=== PATIENT | male | born 1975 | race Caucasian/White ===

== ENCOUNTER 2016-02-27 12:10 | Outpatient (RCR) | payer OTHER ==
--- OUTSIDE RECORDS SUMMARY | 2016-02-05 12:56 | XMS REPORT | Continuity of Care Document ---
Author Author [facility] Organization [facility] Address Unknown Phone Unavailable Care Team Providers Care International Sales Manager Name Role Phone Chad Sparrow PCP [phone] Source Comments Some departments are not documenting in the electronic medical record. If you do not see the information that you expected, contact Release of Information in the Health Information Management department at [phone] for further assistance in locating additional records.[facility] Active Allergies and Adverse Reactions No [...] overall doing better but no recent HbA1c Social History Tobacco Use Types Packs/Day Years [...]
[2016-02-05 13:15] VITALS: BP 152/93
[2016-02-05] MEDS: LEVOFLOXACIN 750 MG/D5W 150 ML PRE-MIX IV SCH (15:05)
--- NOTE | 2016-02-05 15:16 | Diagnostic Imaging Report ---
Portable upright radiograph of the chest. INDICATION: PICC line placement. FINDINGS: Right PICC line is seen with the tip at the mid SVC level. The lungs are clear. The heart size is normal. No effusion or pneumothorax. The mediastinum and sarina appear unremarkable. IMPRESSION: Right PICC line is placed with the tip at the SVC level. Dictated by: Dictated on workstation # [id number]
[2016-02-05] MEDS: DAPTOmycin 500 MG/NS 50 ML IVPB IV SCH ×2 (16:30)
[2016-02-05 17:31] VITALS: BP 152/93
[2016-02-06] MEDS: LEVOFLOXACIN 750 MG/D5W 150 ML PRE-MIX IV SCH (09:55)
[2016-02-06] MEDS: DAPTOmycin 500 MG/NS 50 ML IVPB IV SCH ×2 (11:20)
[2016-02-06 12:45] VITALS: BP 142/84
[2016-02-07] MEDS: LEVOFLOXACIN 750 MG/D5W 150 ML PRE-MIX IV SCH (10:45)
[2016-02-07 11:06] VITALS: BP 138/90
[2016-02-07] MEDS: DAPTOmycin 500 MG/NS 50 ML IVPB IV SCH ×2 (12:10)
[2016-02-08] MEDS: LEVOFLOXACIN 750 MG/D5W 150 ML PRE-MIX IV SCH (09:25)
[2016-02-08] MEDS: DAPTOmycin 500 MG/NS 50 ML IVPB IV SCH ×2 (10:50)
[2016-02-08 11:07] VITALS: BP 128/84
[2016-02-09 11:10] VITALS: BP 123/79
[2016-02-09] MEDS: LEVOFLOXACIN 750 MG/D5W 150 ML PRE-MIX IV SCH (11:25)
[2016-02-09] MEDS: DAPTOmycin 500 MG/NS 50 ML IVPB IV SCH ×2 (12:55)
[2016-02-10] MEDS: LEVOFLOXACIN 750 MG/D5W 150 ML PRE-MIX IV SCH (10:57)
[2016-02-10] MEDS: DAPTOmycin 500 MG/NS 50 ML IVPB IV SCH ×2 (12:25)
[2016-02-10 12:58] VITALS: BP 133/86
[2016-02-11] MEDS: LEVOFLOXACIN 750 MG/D5W 150 ML PRE-MIX IV SCH (10:40)
[2016-02-11] MEDS: DAPTOmycin 500 MG/NS 50 ML IVPB IV SCH ×2 (12:05)
[2016-02-11 13:23] VITALS: BP 116/81
[2016-02-12 11:00] VITALS: BP 119/76
[2016-02-12] MEDS: LEVOFLOXACIN 750 MG/D5W 150 ML PRE-MIX IV SCH (11:10)
[2016-02-12 11:20] VITALS: BP 119/76
[2016-02-12] MEDS: DAPTOmycin 500 MG/NS 50 ML IVPB IV SCH ×2 (12:30)
[2016-02-12 13:11] VITALS: BP 119/76
[2016-02-13] MEDS: DAPTOmycin 500 MG/NS 50 ML IVPB IV SCH ×2 (09:45)
[2016-02-13] MEDS: LEVOFLOXACIN 750 MG/150 ML IV 150 ML IV SCH (10:15)
[2016-02-13 12:05] VITALS: BP 119/48
[2016-02-14] MEDS: LEVOFLOXACIN 750 MG/150 ML IV 150 ML IV SCH (09:27)
[2016-02-14] MEDS: DAPTOMYCIN IV SCH (11:10)
[2016-02-14] MEDS: NORMAL SALINE IV SCH (11:10)
[2016-02-14 12:00] VITALS: BP 108/73
[2016-02-15 10:57] VITALS: BP 107/84
[2016-02-15] MEDS: LEVOFLOXACIN 750 MG/D5W 150 ML PRE-MIX IV SCH (10:57)
[2016-02-15] MEDS: NORMAL SALINE IV SCH (12:27)
[2016-02-15] MEDS: DAPTOMYCIN IV SCH (12:27)
[2016-02-15 12:57] VITALS: BP 107/84
[2016-02-16] MEDS: LEVOFLOXACIN 750 MG/150 ML IV 150 ML IV SCH (08:55)
[2016-02-16] MEDS: DAPTOMYCIN IV SCH (10:30)
[2016-02-16] MEDS: NORMAL SALINE IV SCH (10:30)
[2016-02-16 11:18] VITALS: BP 106/77
[2016-02-18 08:20] VITALS: BP 119/81
[2016-02-18] MEDS: LEVOFLOXACIN 750 MG/150 ML IV 150 ML IV SCH (08:45)
[2016-02-18] MEDS: NORMAL SALINE IV SCH (10:04)
[2016-02-18] MEDS: DAPTOMYCIN IV SCH (10:04)
[2016-02-26 11:20] VITALS: BP 114/85
[~2016-02-27] VITALS: Ht 185.4 cm; Wt 108.9 kg
[~2016-02-27 12:10] MED LIST: ALPRAZolam 0.5 MG (XANAX) TAB PO NR; ATOR20TA66 PO; CEPH500C PO; DAKIN'S 1/4 STRENGTH (0.125%) 473 ML BTL TOP SCH; DAPT500V3 IV; DAPTOMYCIN IV SCH; GLIM4TAB PO; INSU100I10 SQ; LEVO750P7 IV; LEVOFLOXACIN 750 MG/150 ML IV 150 ML IV ONE; LISI-556 PO; LISI10TA2 PO; METF-380 PO; METR500T PO; NORMAL SALINE IV SCH; ORPH100T PO; POVI3780 TP; POVIDONE (BETADINE) 10% SOLN 240 ML BTL TOP SCH; SULF1TAB35 PO
[2016-02-27 12:27] VITALS: BP 130/85
== END 2016-05-05 | disposition home or self-care (01) ==
LOC: SDC 12:10
PROVIDERS: ATTEND Surgery
DX: E11.52 Type 2 diabetes mellitus with diabetic peripheral angiopathy with gangrene (principal); E11.621 Type 2 diabetes mellitus with foot ulcer; E11.42 Type 2 diabetes mellitus with diabetic polyneuropathy; L97.514 Non-pressure chronic ulcer of other part of right foot with necrosis of bone
CPT/HCPCS: 36569; 71010; 76937; 82962; 96365; 96367; 99211

== ENCOUNTER 2016-03-15 15:29 | Outpatient (RCR) | payer OTHER ==
--- OUTSIDE RECORDS SUMMARY | 2015-12-26 09:19 | XMS REPORT | Continuity of Care Document ---
Author Author [facility] Organization [facility] Address Unknown Phone Unavailable Care Team Providers Care Element Setter Name Role Phone Chad Sparrow PCP [phone] Source Comments Some departments are not documenting in the electronic medical record. If you do not see the information that you expected, contact Release of Information in the Health Information Management department at [phone] for further assistance in locating additional records.[facility] Active Allergies and Adverse Reactions No Known Allergies Current Medications Prescription Sig. Disp. Refills Start End Date Status Date metFORMIN (GLUCOPHAGE) Take 1,000 mg by mouth Active 1,000 mg tablet twice daily with meals. glimepiride (AMARYL) 4 mg Take 4 mg by mouth twice Active tablet daily. atorvastatin (LIPITOR) 20 Take 20 mg by mouth Active mg tablet daily. orphenadrine ER(+) Take 100 mg by mouth Active (NORFLEX) 100 mg tablet twice daily. metoclopramide HCl Take 10 mg by mouth Active (REGLAN) 10 mg tablet before meals and at bedtime. FOLIC ACID PO Take by mouth. Active zinc sulfate 220 mg (50 Take 220 mg by mouth Active mg elemental zinc) daily. capsule ALPHA LIPOIC Take by mouth. Active ACID/FA/MV-MN/LUT (DIABETES HEALTH PO) INSULIN Inject 5 Units into Active GLARGINE,HUM.REC.ANLOG area(s) as directed (LANTUS SC) daily. sildenafil(+) (VIAGRA) Take 0.5 Tabs by mouth as 6 Tab 1 09/15/19 Active 100 mg tablet Needed for Erectile 16 dysfunction. 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 She has PCOS and irregular cycles Variable semen volume in 2014 He was on androgel for approx 7-9 months in 2015 - SA in 09/04 while on androgel - still good numbers but low vol. Also FSH/LH were normal Last Assessment & Plan: Most likely etiology is poorly controlled DM for both ED and anejaculation - both progressive 1. Hormones 2. SA with post ejaculatory urine to eval for anemission vs retrograde ejac 3. Metoclopramide might be playing a role - will cause rise in prolactin 4. Viagra for symptomatic relief of ED - he needs to talk to his PCP about DM control - he is overall doing better but no recent HbA1c Most Recent Encounters Date Type Specialty Providers Description 09/25/2015 Orders Only Urology Rocael Heard MBBS Anejaculation ( Primary Dx) Social History Tobacco Use Types Packs/Day Years Used Date Never Smoker Alcohol Use Drinks/Week oz/Week Comments Yes 0 Standard 0.0 drinks or equivalent Last Filed Vital Signs Vital Sign Reading Time Taken Blood Pressure 130/79 09/15/2015 1:03 PM CDT Pulse 91 09/15/2015 1:03 PM CDT Temperature - - Respiratory Rate - - Height 1.854 m (6' 1") 09/15/2015 1:03 PM CDT Weight 111.131 kg (245 lb) 09/15/2015 1:03 PM CDT Body Mass Index 32.33 09/15/2015 1:03 PM CDT Oxygen Saturation - - Plan of Care Health Maintenance Due Date Last Done Comments Physical (Comprehensive) 1984 Exam Pertussis Vaccine 1988 Tetanus Vaccine 1994 Influenza Vaccine 10/23/2015 Results from Last 3 Months Not on file
[~2016-03-15 15:29] MED LIST changes: -ALPRAZolam 0.5 MG (XANAX) TAB PO NR; -DAKIN'S 1/4 STRENGTH (0.125%) 473 ML BTL TOP SCH; -DAPTOMYCIN IV SCH; -LEVOFLOXACIN 750 MG/150 ML IV 150 ML IV ONE; -NORMAL SALINE IV SCH; -POVIDONE (BETADINE) 10% SOLN 240 ML BTL TOP SCH
== END 2016-03-15 16:00 | disposition home or self-care (01) ==
LOC: WOUNDCARE 15:29
PROVIDERS: ATTEND Surgery
DX: E11.621 Type 2 diabetes mellitus with foot ulcer (principal); E11.65 Type 2 diabetes mellitus with hyperglycemia; E11.42 Type 2 diabetes mellitus with diabetic polyneuropathy; L97.512 Non-pressure chronic ulcer of other part of right foot with fat layer exposed
CPT/HCPCS: 11042; 11043; 11046; 29445; 82962; 87070; 87075; 87205; 99183; 99212

== ENCOUNTER 2017-06-06 20:49 | Inpatient (IN) | payer OTHER ==
[~2017-06-06] VITALS: Ht 185.4 cm; Wt 101.3 kg
[2017-06-06] MEDS ORDERED: NS IV 1000 ML 1,000 ML IV PRN (21:18)
[2017-06-06] MEDS ORDERED: INSU100V5 SQ (21:18)
[2017-06-06 21:30] LABS: BILIRUBIN,URINE NEGATIVE (NEGATIVE); CLARITY,URINE CLEAR; COLOR,URINE YELLOW; GLUCOSE, URINE (UA) 4+ (NEGATIVE); KETONES,URINE NEGATIVE (NEGATIVE); LEUKOCYTE ESTERASE ,URINE NEGATIVE (NEGATIVE); NITRITE,URINE NEGATIVE (NEGATIVE); PH,URINE 5 (5-9); PROTEIN,URINE 2+ (NEGATIVE); UROBILINOGEN,URINE NORMAL (NORMAL)
[2017-06-06] MEDS ORDERED: ONDANSETRON 4 MG/2 ML (SDV) Z0FRAN IVP PRN (21:30)
[2017-06-06 21:39] LABS: BASOPHILS # (AUTO) 0.1 10^3/uL (0.0-0.1); BASOPHILS % (AUTO) 0 % (0-10); EOSINOPHILS # (AUTO) 0.1 10^3/uL (0.0-0.3); EOSINOPHILS % (AUTO) 1 % (0-10); HEMATOCRIT 44 % (40-54); HEMOGLOBIN 15.9 G/DL (13.3-17.7); LYMPHOCYTES # (AUTO) 1.1 X 10^3 (1.0-4.0); LYMPHOCYTES % (AUTO) 7 % (12-44); MEAN CORPUSCULAR HEMOGLOBIN 32 PG (25-34); MEAN CORPUSCULAR HGB CONC 36 G/DL (32-36); MEAN CORPUSCULAR VOLUME 87 FL (80-99); MEAN PLATELET VOLUME 10.3 FL (7.4-10.4); MONOCYTES % (AUTO) 6 % (0-12); NEUTROPHILS # (AUTO) 15.1 X 10^3 (1.8-7.8); NEUTROPHILS % (AUTO) 87 % (42-75); PLATELET COUNT 284 10^3/uL (130-400); RED BLOOD COUNT 5.05 10^6/uL (4.35-5.85)
[2017-06-06 21:39] LABS: SQUAMOUS EPITHELIAL CELL,UR RARE /HPF
--- NOTE | 2017-06-06 21:44 | ED General ---
General Chief Complaint: Fever-Adult/Adol Stated Complaint: POSS INFECTED FOOT ULCER/TINGLING EXTREM/CHILLS Nursing Triage Note: CHILLS, RIGHT LEG PAIN WITHOUT INJURY, HEADACHE, FOOT ULCER Nursing Sepsis Screen: Possible Sepsis Risk Source of Information: Patient, Family () Exam Limitations: No Limitations History of Present Illness Date Seen by Provider: Jun 06, 2017 Time Seen by Provider: 21:35 Initial Comments The patient presents to the ER by private conveyance with his significant other and a chief complaint that he started having fevers chills and tachycardia this afternoon. He did take an Aleve. He is not having any nausea vomiting or diarrhea. He says he had a a amputation on his right foot due to a nonhealing diabetic ulcer about a year ago and has been dealing with the wound outpatient ever since. He has the wound dressed and it does put out a scant amount of mucopurulent discharge noted different than before. He is not seeing any redness or swelling in either of his legs. He does have a little painful nodule in his right groin. He's had no surgeries otherwise on his abdomen. He is not having a cough, shortness of breath, chest pain, runny nose earache or other constitutional symptoms. He is on Keflex right now outpatient for his wound infection. Said about a year ago and that same wound got infected and he had gone the hospital because he was septic the wound was not very impressive then either. He is not on steroids or any other immunocompromising medications. He reports that he has a lot of stress in therefore has a chronic intermittent headache and neck stiffness and is getting one tonight. Allergies and Home Medications Allergies Coded Allergies: No Known Drug Allergies (Unverified , 01/29/16) Home Medications Insulin Determir 1,000 Units/10 Ml Soln, 20 UNITS SQ HS, (Reported) Metformin Hcl 1,000 Mg Tablet, 1,000 MG PO BID WITH MEALS, (Reported) Patient Home Medication List Home Medication List Reviewed: Yes Review of Systems Constitutional: chills; No diaphoresis; fever, malaise; No weight gain, No weight loss EENTM: No ear discharge, No hearing loss, No ear pain, No blurred vision, No eye pain, No dental problems, No mouth pain, No nose congestion, No nose pain, No throat pain Respiratory: No cough, No phlegm, No short of breath, No wheezing Cardiovascular: No chest pain, No edema, No Hx of Intervention, No palpitations , No syncope, No vascular heart diseas Gastrointestinal: No abdominal pain, No constipation, No diarrhea; nausea (Mild ); No vomiting Genitourinary: No dysuria, No frequency, No hematuria Musculoskeletal: No back pain, No joint pain; neck pain (Chronic headache and neck stiffness) Psychiatric/Neurological: Headache (Chronic global) Past Lxsnouy-Yaeabi-Umecwj Hx Patient Social History Alcohol Use: Rarely Uses Recreational Drug Use: No Smoking Status: Never a Smoker Recent Foreign Travel: No Contact w/Someone Who Travel: No Recent Infectious Disease Expo: No Recent Hopitalizations: Yes Immunizations Up To Date Tetanus Booster (TDap): Unknown Seasonal Allergies Seasonal Allergies: No Past Medical History Surgeries: Yes (R foot surgery) Orthopedic Respiratory: No Cardiac: No Neurological: No Reproductive Disorders: No Genitourinary: No Gastrointestinal: No Musculoskeletal: No Endocrine: Yes Diabetes, Non-Insulin dep HEENT: No Cancer: No Psychosocial: No Integumentary: No Blood Disorders: No Family Medical History No Pertinent Family Hx Physical Exam-Suspected Sepsis Physical Exam Vital Signs Vital Signs - First Documented 06/06/17 21:18 Temp 98.0 Pulse 136 Resp 24 B/P (MAP) 137/107 (117) Pulse Ox 100 O2 Delivery Room Air Capillary Refill : Less Than 3 Seconds Blood Pressure Mean: 117 General Appearance: No Apparent Distress, WD/WN Eyes: Bilateral Eye Normal Inspection, Bilateral Eye PERRL, Bilateral Eye EOMI HEENT: PERRL/EOMI, TMs Normal, Normal ENT Inspection, Pharynx Normal Neck: Full Range of Motion, Non Tender, Supple Respiratory: Chest Non Tender, Lungs Clear, Normal Breath Sounds, No Accessory Muscle Use, No Respiratory Distress Cardiovascular: Regular Rate, Rhythm, No Edema Gastrointestinal: Normal Bowel Sounds, Non Tender, Soft Genital/Rectal: Normal Genital Exam, Other (Right inguinal him has a small amount of bowel in the inguinal canal but is not painful on Valsalva maneuver) Extremity: Normal Range of Motion, Non Tender, No Calf Tenderness, No Pedal Edema, Slow Capillary Refill, Other (Small 2-3 mm diameter open chronic wound seeping yellow mucopurulent discharge on the ball of the foot between the second and fourth digit. Surgical scar seen from a amputation on the same, right foot.) Neurologic/Psychiatric: Alert, Oriented x3, No Motor/Sensory Deficits, Normal Mood/Affect, tafe registrar II-XII Norm as Tested Skin: normal color, warm/dry Lymphatic: Inguinal Node Tender (R) (2 cm, mobile, rubbery, mildly tender to palpation inferior/anterior right inguinal) Focused Exam Lactate Level 06/06/17 21:25: Lactic Acid Level 1.23 Lactic Acid Level Laboratory Tests Test 06/06/17 21:25 Lactic Acid Level 1.23 MMOL/L (0.50-2.00) Progress/Results/Core Measures Suspected Sepsis Recent Fever Within 48 Hours: No Infection Criteria Present: Suspected New Infection New/Unexplained Altered Menta: No Sepsis Screen: Possible Sepsis Risk SIRS Temperature:98.0 Pulse: 136 Respiratory Rate: 24 Laboratory Tests 06/06/17 21:25: White Blood Count 17.4H Blood Pressure 137 /107 Mean: 117 06/06/17 21:25: Lactic Acid Level 1.23 Laboratory Tests 06/06/17 21:25: Creatinine 1.11, INR Comment 0.9, Platelet Count 284, Total Bilirubin 1.0 Results/Orders Lab Results Laboratory Tests Test 06/06/17 21:20 06/06/17 21:25 Range/Units Urine Color YELLOW Urine Clarity CLEAR Urine pH 5 5-9 Urine Specific Cayce 1.020 1.016-1.022 Urine Protein 2+ H NEGATIVE Urine Glucose (UA) 4+ H NEGATIVE Urine Ketones NEGATIVE NEGATIVE Urine Nitrite NEGATIVE NEGATIVE Urine Bilirubin NEGATIVE NEGATIVE Urine Urobilinogen NORMAL NORMAL MG/DL Urine Leukocyte Esterase NEGATIVE NEGATIVE Urine RBC (Auto) NEGATIVE NEGATIVE Urine RBC NONE /HPF Urine WBC NONE /HPF Urine Squamous Epithelial Cells RARE /HPF Urine Crystals NONE /LPF Urine Bacteria NONE /HPF Urine Casts NONE /LPF Urine Mucus NEGATIVE /LPF Urine Culture Indicated NO White Blood Count 17.4 H 4.3-11.0 10^3/uL Red Blood Count 5.05 4.35-5.85 10^6/uL Hemoglobin 15.9 13.3-17.7 G/DL Hematocrit 44 40-54 % Mean Corpuscular Volume 87 80-99 FL Mean Corpuscular Hemoglobin 32 25-34 PG Mean Corpuscular Hemoglobin Concent 36 32-36 G/DL Red Cell Distribution Width 13.0 10.0-14.5 % Platelet Count 284 130-400 10^3/uL Mean Platelet Volume 10.3 7.4-10.4 FL Neutrophils (%) (Auto) 87 H 42-75 % Lymphocytes (%) (Auto) 7 L 12-44 % Monocytes (%) (Auto) 6 0-12 % Eosinophils (%) (Auto) 1 0-10 % Basophils (%) (Auto) 0 0-10 % Neutrophils # (Auto) 15.1 H 1.8-7.8 X 10^3 Lymphocytes # (Auto) 1.1 1.0-4.0 X 10^3 Monocytes # (Auto) 1.0 0.0-1.0 X 10^3 Eosinophils # (Auto) 0.1 0.0-0.3 10^3/uL Basophils # (Auto) 0.1 0.0-0.1 10^3/uL Neutrophils % (Manual) 79 % Lymphocytes % (Manual) 6 % Monocytes % (Manual) 6 % Eosinophils % (Manual) 1 % Basophils % (Manual) 0 % Band Neutrophils 8 % Blood Morphology Comment NORMAL Prothrombin Time 12.1 L 12.2-14.7 SEC INR Comment 0.9 0.8-1.4 Activated Partial Thromboplast Time 30 24-35 SEC Sodium Level 133 L 135-145 MMOL/L Potassium Level 3.5 L 3.6-5.0 MMOL/L Chloride Level 94 L 98-107 MMOL/L Carbon Dioxide Level 27 21-32 MMOL/L Anion Gap 12 5-14 MMOL/L Blood Urea Nitrogen 13 7-18 MG/DL Creatinine 1.11 0.60-1.30 MG/DL Estimat Glomerular Filtration Rate > 60 BUN/Creatinine Ratio 12 Glucose Level 360 H 70-105 MG/DL Lactic Acid Level 1.23 0.50-2.00 MMOL/L Calcium Level 9.8 8.5-10.1 MG/DL Total Bilirubin 1.0 0.1-1.0 MG/DL Aspartate Amino Transf (AST/SGOT) 15 5-34 U/L Alanine Aminotransferase (ALT/SGPT) 28 0-55 U/L Alkaline Phosphatase 89 40-136 U/L Troponin I < 0.30 <0.30 NG/ML Total Protein 8.2 6.4-8.2 GM/DL Albumin 4.6 H 3.2-4.5 GM/DL Micro Results Microbiology 06/06/17 Influenza Types A,B Antigen (CLAUDETTE) - Final, Complete My Orders Orders - ANKITA HOPKINS Cbc With Automated Diff (06/06/17 21:18) Comprehensive Metabolic Panel (06/06/17 21:18) Lactic Acid Analyzer (06/06/17 21:18) Blood Culture (06/06/17 21:18) Sputum Culture (06/06/17 21:18) Ua Culture If Indicated (06/06/17 21:18) Protime With Inr (06/06/17 21:18) Partial Thromboplastin Time (06/06/17 21:18) Chest 1 View, Ap/Pa Only (06/06/17 21:18) O2 (06/06/17 21:18) Ondansetron Injection (Zofran Injectio (06/06/17 21:30) Saline Lock/Iv-Start (06/06/17 21:18) Saline Lock/Iv-Start (06/06/17 21:18) Ekg Tracing (06/06/17 21:18) Troponin I (06/06/17 21:18) Vital Signs Adult Sepsis Patie Q1H (06/06/17 21:18) Remove Rings In Anticipation O (06/06/17 21:18) Influenza A And B Antigens (06/06/17 21:18) Saline Lock/Iv-Start (06/06/17 21:18) Ns Iv 1000 Ml (Sodium Chloride 0.9%) (06/06/17 21:18) Vancomycin Injection (Vancomycin Injecti (06/06/17 21:45) Piperacillin Sodium/Tazobactam (Zosyn Vi (06/06/17 21:45) Acetaminophen Tablet (Tylenol Tablet) (06/06/17 21:45) Foot, Right, 3 View (06/06/17 21:48) Vancomycin Injection (Vancomycin Injecti (06/06/17 21:46) Vancomycin Injection (Vancomycin Injecti (06/06/17 21:47) Ns (Ivpb) (Sodium Chloride 0.9%) (06/06/17 21:54) Manual Differential (06/06/17 21:25) Medications Given in ED Current Medications Medications Dose Ordered Sig/Amy Route Start Time Stop Time Status Last Admin Dose Admin Acetaminophen 1,000 mg ONCE ONCE PO 06/06/17 21:45 06/06/17 21:46 DC 06/06/17 21:47 1,000 MG Ondansetron HCl 4 mg ONCE PRN IVP 06/06/17 21:30 06/06/17 21:33 DC 06/06/17 21:33 4 MG Piperacillin Sod/ Tazobactam Sod 4.5 gm/Sodium Chloride 100 ml @ 200 mls/hr ONCE ONCE IV 06/06/17 21:45 06/06/17 22:14 DC 06/06/17 21:47 200 MLS/HR Sodium Chloride 250 ml @ ud STK-MED ONCE .ROUTE 06/06/17 21:54 06/06/17 21:58 DC 06/06/17 22:02 250 MLS/HR Sodium Chloride 1,000 ml @ 0 mls/hr Q0M PRN IV 06/06/17 21:18 06/06/17 21:33 0 MLS/HR Vancomycin HCl 500 mg STK-MED ONCE IV 06/06/17 21:47 06/06/17 21:51 DC 06/06/17 22:02 500 MG Vancomycin HCl 1,000 mg STK-MED ONCE .ROUTE 06/06/17 21:46 06/06/17 21:50 DC 06/06/17 22:02 1,000 MG Vital Signs/I&O 06/06/17 06/06/17 06/06/17 06/06/17 21:18 21:47 21:48 22:07 Temp 98.0 98.0 97.8 Pulse 136 109 Resp 24 20 B/P (MAP) 137/107 (117) 154/88 Pulse Ox 100 99 97 O2 Delivery Room Air Room Air Room Air Capillary Refill : Less Than 3 Seconds Blood Pressure Mean: 117 Progress Note : Time: 21:46 Progress Note Patient has a nonhealed diabetic wound with mucopurulence but not a lot of erythema or swelling just mild swelling and no tenderness of his right foot to be the most likely cause for his sepsis. We're doing a septic workup given his tachycardia. He is afebrile but he did take Aleve. We are going to obtain blood cultures and give him vancomycin and Rocephin and an inpatient stay with wound care consult. Blood pressure stable at this time. If he starts to turn around then we can probably put him on the floor tonight. ECG Initial ECG Impression Date: Jun 06, 2017 Initial ECG Impression Time: 21:21 Initial ECG Rate: 122 Initial ECG Rhythm: S.Tach Initial ECG Intervals: Normal Initial ECG Impression: Normal, Nonspecific Changes Initial ECG Comparisson: No Previous ECG Available (Sinus tachycardia) Comment Sinus tachycardia without ST segment elevation or depression. Diagnostic Imaging Diagonstic Imaging: Xray Plain Films/CT/US/NM/MRI: chest Comments No acute cardiopulmonary processes seen on one view AP chest Reviewed: Reviewed by Me Diagonstic Imaging: Xray Plain Films/CT/US/NM/MRI: other (Right foot) Comments No soft tissue gas or osteo-destructive lesion seen. Prior ray amputation noted. Reviewed: Reviewed by Me Departure Communication (Admissions) Time/Spoke to Admitting Phy: 22:39 Discussed the case lab imaging findings and antibiotic choice with Dr. Telly Schwab. He'll see the patient in the morning. Impression Primary Impression: Wound with infection determined by examination Additional Impression: Sepsis Qualified Codes: A41.9 - Sepsis, unspecified organism Disposition: ADMITTED INPATIENT Condition: Stable Admissions Decision to Admit Reason: Admit from ER (General) Decision to Admit/Date: Jun 06, 2017 Time/Decision to Admit Time: 22:15 Departure-Patient Inst. Referrals: TELLY SCHWAB MD (PCP/Family) Primary Care Physician Copy Copies To 1: TELLY SCHWAB MD, TITUS J Jun 06, 2017 21:44
[2017-06-06] MEDS ORDERED: VANCOMYCIN INJECTION 1,500 MG in NS IV 500 ML 500 ML IV SCH (21:45)
[2017-06-06] MEDS ORDERED: PIPERACILLIN SODIUM/TAZOBACTAM 4.5 GM in NS (IVPB) 100 ML IV ONE (21:45)
[2017-06-06] MEDS ORDERED: ACETAMINOPHEN 500 MG TAB (TYLENOL) PO ONE (21:45)
[2017-06-06] MEDS ORDERED: VANCOMYCIN 1000 MG/VIAL ONE (21:46)
[2017-06-06 21:47] LABS: INR 0.9 (0.8-1.4); PROTHROMBIN TIME PATIENT 12.1 SEC (12.2-14.7)
[2017-06-06] MEDS ORDERED: VANCOMYCIN 500 MG/VIAL IV ONE (21:47)
[2017-06-06] MEDS ORDERED: NS (IVPB) 250 ML ONE (21:54)
[2017-06-06 21:56] LABS: ALANINE AMINOTRANSFERASE 28 U/L (0-55); ALBUMIN 4.6 GM/DL (3.2-4.5); ALKALINE PHOSPHATASE 89 U/L (40-136); BUN/CREATININE RATIO 12; CALCIUM 9.8 MG/DL (8.5-10.1); CARBON DIOXIDE 27 MMOL/L (21-32); CHLORIDE 94 MMOL/L (98-107); CREATININE SERUM 1.11 MG/DL (0.60-1.30); GFR ESTIMATED > 60; GLUCOSE 360 MG/DL (70-105); POTASSIUM 3.5 MMOL/L (3.6-5.0); SODIUM 133 MMOL/L (135-145); TOTAL PROTEIN 8.2 GM/DL (6.4-8.2)
[2017-06-06 22:01] LABS: WHITE BLOOD COUNT 17.4 10^3/uL (4.3-11.0)
[2017-06-06 22:19] LABS: BAND NEUTROPHILS 8 %; BASOPHILS % (MANUAL) 0 %; EOSINOPHILS % (MANUAL) 1 %; LYMPHOCYTES % (MANUAL) 6 %; MONOCYTES % (MANUAL) 6 %; NEUTROPHILS % (MANUAL) 79 %; RBC MORPH NORMAL
--- OUTSIDE RECORDS SUMMARY | 2017-06-06 22:57 | XMS REPORT | Continuity of Care Document ---
Author Author [facility] Organization [facility] Address Unknown Phone Unavailable Care Team Providers Care Coffee Shop Manager Name Role Phone [employer] Unavailable Unavailable Problems Medications Allergies, Adverse Reactions, Alerts Immunizations Results Vital Signs Encounters Location Location Details Encounter Type Encounter Number Reason For Visit Attending Provider ADM Date DC Date Status Source OUTPATIENT [id number] SAMM GAMEZ 09/15/2015 09/15/2015 Active [facility] Procedures Plan of Care Social History Assessment and Plan Family History Advance Directives Functional Status
--- OUTSIDE RECORDS SUMMARY | 2017-06-06 22:58 | XMS REPORT ---
Author Author ILA LYLES [facility] Address [address] [place] [address] Care Team Providers Care Scroll Shear Operator Name Role Phone ILA LYLES Unavailable PROBLEMS Type Condition ICD9-CM Code RAB43-NM Code Onset Dates Condition Status SNOMED Code Problem Type 2 diabetes mellitus without complication, without long-term current use of insulin E11.9 Active 684630697 Problem Type 2 diabetes mellitus with foot ulcer E11.621 Active 9556772599094 Problem Essential hypertension I10 Active 43054259 Problem Mixed hyperlipidemia E78.2 Active 681282307 ALLERGIES Unknown Allergies SOCIAL HISTORY No smoking Hx information available PLAN OF CARE VITAL SIGNS MEDICATIONS Unknown Medications RESULTS No Results PROCEDURES No Known procedures IMMUNIZATIONS No Known Immunizations
--- OUTSIDE RECORDS SUMMARY | 2017-06-06 22:58 | XMS REPORT | Clinical Summary ---
Author Author [facility] Organization [facility] Address Unknown Phone Unavailable Care Team Providers Care Endless Bed Drum Sander Name Role Phone Rocael Heard MD Unavailable Manuel Sparrow MD PCP Source Comments Some departments are not documenting in the electronic medical record. If you do not see the information that you expected, contact Release of Information in the Health Information Management department at [phone] for further assistance in locating additional records.[facility] Allergies No Known Allergies Current Medications Prescription Sig. [...] on androgel for approx 7-9 months in 2014 - SA in 09/04 while on androgel [...] overall doing better but no recent HbA1c Family History Medical History Relation Name Comments Diabetes Brother Diabetes Father Cancer Maternal Grandfather Diabetes Mother Cancer Other Diabetes Other Cancer Paternal Grandmother Relation Name Status Comments Brother Father Maternal Grandfather Mother Other Paternal Grandmother Social History Tobacco Use Types Packs/Day Years Used Date Never Smoker Alcohol Use Drinks/Week oz/Week Comments Yes 0 Standard 0.0 drinks or equivalent Sex Assigned at Date Recorded Not on file Last Filed Vital Signs Vital Sign Reading Time Taken Blood Pressure 130/79 09/15/2015 1:03 PM CDT Pulse 91 09/15/2015 1:03 PM CDT Temperature - - Respiratory Rate - - Oxygen Saturation - - Inhaled Oxygen - - Concentration Weight 111.1 kg (245 lb) 09/15/2015 1:03 PM CDT Height 185.4 cm (6' 1") 09/15/2015 1:03 PM CDT Body Mass Index 32.32 09/15/2015 1:03 PM CDT Plan of Treatment Health Maintenance Due Date Last Done Comments PHYSICAL (COMPREHENSIVE) 1984 EXAM PERTUSSIS VACCINE 1988 HIV SCREENING 1992 TETANUS VACCINE 1994 INFLUENZA VACCINE 11/21/2017 Results Not on filefrom Last 3 Months
--- OUTSIDE RECORDS SUMMARY | 2017-06-06 22:58 | XMS REPORT ---
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 Z79.4 Active 112902324 Problem Type 2 diabetes mellitus without complication, unspecified care home insulin use status E11.9 Active 059138162 Problem Type 2 diabetes mellitus without complication, without long-term current use of insulin E11.9 Active 568346940 Problem Anxiety F41.9 Active 35642637 Problem 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
--- OUTSIDE RECORDS SUMMARY | 2017-06-06 22:58 | XMS REPORT ---
Author ILA Castillo [facility] eClinicalWorks Address Unknown Phone Unavailable Care Team Providers Care Vp Site Name Role Phone ILA LYLES CP Unavailable Allergies, Adverse Reactions, Alerts Substance Reaction Event Type Januvia Info Not Available Drug Allergy Problems Problem Type Condition Code Onset Dates Condition Status Assessment Mixed hyperlipidemia E78.2 Active Assessment Non compliance with medical treatment Z91.19 Active Problem Type 2 diabetes mellitus with foot ulcer E11.621 Active Problem Essential hypertension I10 Active Problem Type 2 diabetes mellitus without complication, without long-term current use of insulin E11.9 Active Assessment Type 2 diabetes mellitus with foot ulcer E11.621 Active Assessment Essential hypertension I10 Active Problem Mixed hyperlipidemia E78.2 Active Assessment Type 2 diabetes mellitus without complication, without long-term current use of insulin E11.9 Active Medications Medication Code System Code Instructions Start Date End Date Status Dosage BD Insulin Syringe Ultrafine [facility] [id number] 31G X 5/16" 1 ML Dec 24, 2015 as directed Metformin HCl [facility] [address]-42 1000 MG Orally Twice a day 1 tablet with meals Lantus [facility] [address]-54 100 UNIT/ML Subcutaneous daily 5 units Lisinopril [facility] [address]-38 10 MG Orally Once a day 1 tablet Multivitamin [facility] 409[address] Orally not defined Glimepiride [facility] [address]-83 4 MG Orally 2 times a day 1 tablet Procedures Procedure Coding System Code Date COMPREHEN METABOLIC PANEL CPT-4 60767 Dec 24, 2015 MICROALBUMIN, SEMIQUANT CPT-4 20662 Dec 24, 2015 GLYCATED HEMOGLOBIN TEST CPT-4 53825 Dec 24, 2015 Office Visit, Est Pt., Level 5 CPT-4 86273 Dec 24, 2015 COMPLETE CBC W/AUTO DIFF WBC CPT-4 44956 Dec 24, 2015 Vital Signs Date/Time: Dec 24, 2015 Cardiac Monitoring Heart Rate 84 bpm Weight 240.8 lbs Height 72 in BMI 32.65 Index Blood Pressure Diastolic 88 mmHg Blood Pressure Systolic 162 mmHg Results Name Result Date Reference Range Unit Abnormality Flag A1C (IN HOUSE) ----A1C IN HOUSE 13.4 20151224 4.3 - 5.6 % ----Previous A1c 6.9 20151224 ----Lot [id number] 20151224 ----Exp date 20151224 MICROALBUMIN, URINE (IN HOUSE) ----CRE 50 mg/dL 20151224 ----ALB 10 mg/L 20151224 ----A:C (IN HOUSE) 30-300 mg/g 20151224 ----Clarity clear 20151224 ----Color yellow 20151224 ----Lot # [id number] 20151224 ----Exp date 20151224 ----MICROALBUMIN Abnormal 20151224 Summary Purpose eClinicalWorks Submission
--- OUTSIDE RECORDS SUMMARY | 2017-06-06 22:59 | XMS REPORT ---
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.4 Active 474987374 Problem Type 2 diabetes mellitus without complication, unspecified intermediate manager insulin use status E11.9 Active 125129353 Problem Type 2 diabetes mellitus without complication, without long-term current use of insulin E11.9 Active 775746925 Problem Anxiety F41.9 Active 72857355 Problem 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
--- OUTSIDE RECORDS SUMMARY | 2017-06-06 22:59 | XMS REPORT ---
Author Author ILA LYLES Organization [facility] Address [address] [place] [address] Care Team Providers Care Train Announcer Name Role Phone ILA LYLES Unavailable PROBLEMS Type Condition ICD9-CM Code [id number] Code Onset Dates Condition Status SNOMED Code Problem Mixed hyperlipidemia E78.2 Active 963170709 Problem Type 2 diabetes mellitus with foot ulcer E11.621 Active 9386763811962 Problem Essential hypertension I10 Active 93622031 Problem Type 2 diabetes mellitus with other skin ulcer E11.622 Active 032680349 Problem [facility] current use of insulin Z79.4 Active 783505432 Problem Type 2 diabetes mellitus without complication, unspecified surgical dressing maker insulin use status E11.9 Active 165780036 Problem Type 2 diabetes mellitus without complication, without long-term current use of insulin E11.9 Active 222700960 Problem Anxiety F41.9 Active 69847215 Problem 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 Active 222747002 ALLERGIES Substance Reaction Event Type Date Status Febuvia Unknown Drug Allergy Feb, Active SOCIAL HISTORY No smoking Hx information available PLAN OF CARE Activity Details Follow Up as sched and 4 weeks Reason:DM VITAL SIGNS Height 72 in 2016-02-26 Weight 217.6 lbs 2016-02-26 Temperature 97.6 degrees Fahrenheit 2016-02-26 Heart Rate 90 bpm 2016-02-26 Respiratory Rate 18 2016-02-26 BMI 29.51 kg/m2 2016-02-26 Blood pressure systolic 124 mmHg 2016-02-26 Blood pressure diastolic 84 mmHg 2016-02-26 MEDICATIONS Medication Instructions Dosage Frequency Start Date End Date Duration Status Flagyl 500 MG Orally every 8 hrs 1 tablet 8h Jan, Feb, Active Atorvastatin Calcium 20 mg Orally twice a day 1 tablet 12h Active Betadine 5 % Active BD Insulin Syringe Ultrafine 31G X 5/16 as directed Dec, Active BusPIRone HCl 10 mg Orally Twice a day prn 1 tablet Feb, 14 days Active Lantus 100 UNIT/ML Subcutaneous 2 times a day 6 units 12h Active Lisinopril 10 MG Orally Once a day 1 tablet 24h 30 days Active Farxiga 5 mg Orally Once a day 1 tablet 24h Active Metformin HCl 1000 MG Orally Twice a day 1 tablet with meals 12h 30 days Active RESULTS No Results PROCEDURES Procedure Date Ordered Related Diagnosis Body Site Office Visit, Est Pt., Level 5 Feb 26, 2016 IMMUNIZATIONS No Known Immunizations
--- OUTSIDE RECORDS SUMMARY | 2017-06-06 22:59 | XMS REPORT ---
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.4 Active 842658466 Problem Type 2 diabetes mellitus without complication, unspecified snf insulin use status E11.9 Active 824877852 Problem Type 2 diabetes mellitus without complication, without long-term current use of insulin E11.9 Active 450373472 Problem Anxiety F41.9 Active 19660603 Problem 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 Active 801567811 ALLERGIES No Known Allergies SOCIAL HISTORY No smoking Hx information available PLAN OF CARE VITAL SIGNS MEDICATIONS Medication Instructions Dosage Frequency Start Date End Date Duration Status Metformin HCl 1000 MG Orally Twice a day 1 tablet with meals 12h 30 days Active Glimepiride 4 MG Orally 2 times a day 1 tablet 12h 30 days Active Lantus 100 UNIT/ML Subcutaneous daily 5 units 24h Active Flagyl 500 MG Orally every 8 hrs 1 tablet 8h Jan, Feb, Active Betadine 5 % Active Lisinopril 10 MG Orally Once a day 1 tablet 24h 30 days Active BD Insulin Syringe Ultrafine 31G X 5/16 as directed Dec, Active [place] 5-325 MG Orally 3 times a day 1 tablet as needed 8h Jan, Jan, 10 days Active Atorvastatin Calcium 20 MG Orally Once a day 1 tablet 24h 30 days Active Daptomycin 500 MG Jan, Jan, Active Levofloxacin in D5W 750 MG/150ML Intravenous every 24 hrs 150 ml Jan, Jan, Active RESULTS No Results PROCEDURES No Known procedures IMMUNIZATIONS No Known Immunizations
[2017-06-06] MEDS ORDERED: NS W/KCL 40 MEQ/L 1,000 ML IV ONE (23:08)
[2017-06-06 23:13] VITALS: BP 136/79
[2017-06-06] MEDS ORDERED: ONDANSETRON 4 MG/2 ML (SDV) Z0FRAN IV PRN (23:30)
[2017-06-06] MEDS ORDERED: POTASSIUM CHLORIDE INJ 40 MEQ in NS IV 1000 ML 1,000 ML IV SCH (23:30)
[2017-06-07] VITALS: BP 120/76
[2017-06-07] MEDS ORDERED: VANCOMYCIN INJECTION 0.1 MG in NS (IVPB) 250 ML IV SCH (01:15)
[2017-06-07 04:00] VITALS: BP 132/85
[2017-06-07] MEDS ORDERED: PIPERACILLIN SODIUM/TAZOBACTAM 4.5 GM in NS (IVPB) 100 ML IV SCH (04:00)
[2017-06-07] MEDS: NS W/KCL 40 MEQ/L 1,000 ML IV SCH ×4 (04:12→18:29)
[2017-06-07] MEDS: PIPERACILLIN SODIUM/TAZOBACTAM 4.5 GM in NS (IVPB) 100 ML IV SCH ×3 (05:05→20:29)
[2017-06-07] MEDS: inSUlin (REGULAR) HUMAN 1 UNIT/0.01 ML (CHARGE PER UNIT) SC SCH ×4 (05:11→20:29)
[2017-06-07] MEDS: IBUPROFEN 800 MG (MOTRIN) TAB PO PRN ×2 (05:13→18:40)
--- NOTE | 2017-06-07 05:41 | Diagnostic Imaging Report ---
EXAM: CHEST 1 VIEW, AP/PA ONLY INDICATION: Fever. Chills. COMPARISON: Chest radiograph 02/05/2016. FINDINGS: Normal heart size and pulmonary vascularity. No focal pulmonary opacity, pleural effusion or pneumothorax. Osseous structures are unremarkable. Interval removal of the right PICC. IMPRESSION: No acute cardiopulmonary findings. Dictated by: Dictated on workstation # [id number]
--- NOTE | 2017-06-07 05:44 | Diagnostic Imaging Report ---
EXAM: FOOT, RIGHT, 3 VIEW INDICATION: Foot ulceration. COMPARISON: Right foot radiographs 01/27/2016 FINDINGS: Amputation of the third ray distal to the mid metatarsal. Hallux valgus. No new suspicious osteoblastic or lytic changes. No fractures. IMPRESSION: No acute radiographic findings in the right foot. Dictated by: Dictated on workstation # [id number]
[2017-06-07 07:00] LABS: BASOPHILS % (AUTO) 0 % (0-10); EOSINOPHILS # (AUTO) 0.1 10^3/uL (0.0-0.3); EOSINOPHILS % (AUTO) 1 % (0-10); HEMATOCRIT 39 % (40-54); HEMOGLOBIN 13.8 G/DL (13.3-17.7); LYMPHOCYTES # (AUTO) 0.7 X 10^3 (1.0-4.0); LYMPHOCYTES % (AUTO) 6 % (12-44); MEAN CORPUSCULAR HEMOGLOBIN 31 PG (25-34); MEAN CORPUSCULAR HGB CONC 35 G/DL (32-36); MEAN CORPUSCULAR VOLUME 89 FL (80-99); MEAN PLATELET VOLUME 10.8 FL (7.4-10.4); MONOCYTES # (AUTO) 0.8 X 10^3 (0.0-1.0); MONOCYTES % (AUTO) 7 % (0-12); NEUTROPHILS # (AUTO) 8.9 X 10^3 (1.8-7.8); NEUTROPHILS % (AUTO) 85 % (42-75); PLATELET COUNT 200 10^3/uL (130-400); RED BLOOD COUNT 4.39 10^6/uL (4.35-5.85); RED CELL DISTRIBUTION WIDTH 12.7 % (10.0-14.5); WHITE BLOOD COUNT 10.5 10^3/uL (4.3-11.0)
[2017-06-07 07:23] LABS: BUN/CREATININE RATIO 13; CALCIUM 8.5 MG/DL (8.5-10.1); CARBON DIOXIDE 23 MMOL/L (21-32); CHLORIDE 104 MMOL/L (98-107); CREATININE SERUM 0.87 MG/DL (0.60-1.30); GFR ESTIMATED > 60; GLUCOSE 288 MG/DL (70-105); MAGNESIUM 1.6 MG/DL (1.8-2.4); POTASSIUM 3.9 MMOL/L (3.6-5.0); SODIUM 135 MMOL/L (135-145)
[2017-06-07 08:00] VITALS: BP 118/76
--- NOTE | 2017-06-07 08:12 | History & Physical ---
History of Present Illness History of Present Illness Reason for visit/HPI 41-year-old male limited overnight or sepsis regarding a right foot ulcer. Patient has been following with Dr. Garrison the last few months. He is in a walking boot when ambulatory. Patient has a history of uncontrolled diabetes currently on metformin and Levemir. He feels like his foot ulcer has been improving over the last few months but yesterday around 2 o'clock in the afternoon noted a right groin pain followed by tingling in his arms and then shortness of breath at 4 p.m. This was followed up by cold sensation and chills which reminded him the last time he had sepsis and ended up losing his third toe of his right foot. Patient came to the ER where blood cultures were obtained and vancomycin and Zosyn were started with IV fluids. Patient was tachycardia, tachypneic, elevated leukocytosis, lactic acid was normal at 1.2. Patient has been on keflex for the right foot ulcer. Patient reports his appetite is normal- he has improved his diet with meal replacement shakes- decreasing his calorie and carbohydrate intake but his blood sugar remains elevated. Usually runs around 200-250. Pt also would like to note he has trouble sleeping due to neck stiffness and discomfort- this has been going on for years. Patient admitted for further workup. This AM pt reports a decrease in his shakes/chills. He does not feel like he knows what is going on or why current things are happening even though he is trying to improve his health. Date of Admission Jun 06, 2017 at 22:54 Date Seen by Provider: Jun 07, 2017 Time Seen by Provider: 08:12 I consulted on this patient on 06/07/17 08:10 Attending Physician Telly Young MD Admitting Physician Telly Young MD Allergies and Home Medications Allergies Coded Allergies: No Known Drug Allergies (Unverified , 01/29/16) Home Medications Insulin Determir 1,000 Units/10 Ml Soln, 20 UNITS SQ HS, (Reported) Metformin Hcl 1,000 Mg Tablet, 1,000 MG PO BID WITH MEALS, (Reported) Patient Home Medication List Home Medication List Reviewed: Yes Past Rhvjomn-Yvppya-Gtksgw Hx Patient Social History Employed/Student: employed Alcohol Use: Rarely Uses Number of Drinks Today: 0 Recreational Drug Use: No Smoking Status: Never a Smoker Physical Abuse Screen: No Sexual Abuse: No Recent Foreign Travel: No Contact w/other who traveled: No Recent Hopitalizations: Yes Recent Infectious Disease Expo: No Immunizations Up To Date Tetanus Booster (TDap): Unknown Seasonal Allergies Seasonal Allergies: No Surgeries Yes (R foot surgery) Orthopedic Respiratory No Cardiovascular No Neurological No Reproductive System Hx Reproductive Disorders: No Genitourinary No Gastrointestinal No Musculoskeletal No Endocrine History of Endocrine Disorders: Yes Endocrine Disorders: Diabetes, Non-Insulin dep HEENT History of HEENT Disorders: No Cancer No Psychosocial History of Psychiatric Problem: No Integumentary History of Skin or Integumenta: No Blood Transfusions History of Blood Disorders: No Family Medical History Significant Family History: No Pertinent Family Hx Review of Systems Review of Systems General: Chills, Fatigue HEENT: Head Aches; No Visual Changes, No Eye Pain Pulmonary: No Dyspnea, No Cough Cardiovascular: Palpitations; No: Chest Pain Gastrointestinal: No: Nausea, Vomiting, Abdominal Pain Genitourinary: No Dysuria, No Frequency Musculoskeletal: neck pain Neurological: Weakness Physical Exam Vital Signs Vital Signs - First Documented 06/06/17 21:18 Temp 98.0 Pulse 136 Resp 24 B/P (MAP) 137/107 (117) Pulse Ox 100 O2 Delivery Room Air Capillary Refill : Less Than 3 Seconds General Appearance: No Apparent Distress, WD/WN, Anxious HEENT: PERRL/EOMI Neck: Full Range of Motion, Normal Inspection, Non Tender, Supple Respiratory: Chest Non Tender, Lungs Clear, Normal Breath Sounds Cardiovascular: Regular Rate, Rhythm, No Edema Gastrointestinal: Normal Bowel Sounds, No Organomegaly, Non Tender, Soft Rectal: Deferred Back: Normal Inspection, No CVA Tenderness Extremity: Non Tender, No Calf Tenderness, Other (right plantar aspect of foot - ulcer- 3rd toe of right foot absent.) Neurologic/Psychiatric: Alert, Oriented x3, Depressed Affect Skin: Normal Color, Warm/Dry Lymphatic: Other (right upper thigh lymph node) Assessment/Plan Assessment/Plan Admission Dx 41 yo M *sepsis due to right foot diabetic ulcer- vancomycin, zosyn- *diabetes mellitus II with hyperglycemia *diabetic peripheral neuropathy *hypokalemia- resolved *hypomagnesemia- replacing in diet. *obesity *anxiety Admission Status: Inpatient Order (span 2 midnights) Reason for Inpatient Admission: sepsis from suspect right foot ulcer he has history of sepsis over a year ago that resulted in amputation of his right 3rd toe- similar presentation. -awaiting blood cultures and monitoring his status. IV antibiotics. Assessment and Plan Continue vancomycin and Zosyn for now with IV fluids. Awaiting blood culture preliminary results. Patient is better since overnight. Plan is to continue to watch again overnight. If labs and blood cultures are normal/except we'll will plan to discharge on Tuesday, June 08 to home on by mouth antibiotics. Likely will use doxycycline and Cefdinir. He'll follow-up with Dr. Garrison on June 09 as scheduled. Problems: (1) Type 2 diabetes mellitus with hyperglycemia Qualifiers: Qualified Codes: E11.65 - Type 2 diabetes mellitus with hyperglycemia; Z79.4 - wicker molded candles (current) use of insulin (2) Sepsis affecting skin (3) Hypokalemia (4) Hypomagnesemia (5) Diabetic foot ulcer Qualifiers: Clinical Quality Measures DVT/VTE Risk/Contraindication: Risk Factor Score Per Nursin RFS Level Per Nursing on Admit: 3=High Sepsis: Within 3hrs of presentation: Admin fluids, Admin ABX, Blood cultures prior to ABX's, Lactate level TELLY YOUNG MD Jun 07, 2017 08:12
[2017-06-07] MEDS: VANCOMYCIN INJECTION 1,500 MG in NS IV 500 ML 500 ML IV SCH ×3 (08:14→23:58)
[2017-06-07] MEDS: ACETAMINOPHEN 500 MG TAB (TYLENOL) PO PRN ×2 (08:15→18:40)
[2017-06-07] MEDS: inSUlin DETERMIR 1 UNIT/0.01 ML (LEVEMIR) CHARGE PER UNIT SQ SCH ×2 (08:15→20:29)
[2017-06-07] MEDS ORDERED: METF500T5 PO (09:59)
[2017-06-07] MEDS ORDERED: INSU100I29 SQ (09:59)
[2017-06-07 12:00] VITALS: BP 117/67
[2017-06-07 15:25] VITALS: BP 121/71
[2017-06-07 19:30] VITALS: BP 130/74
[2017-06-08] VITALS: BP 126/82
[2017-06-08] MEDS: NS W/KCL 40 MEQ/L 1,000 ML IV SCH ×2 (00:30→05:39)
[2017-06-08] MEDS: PIPERACILLIN SODIUM/TAZOBACTAM 4.5 GM in NS (IVPB) 100 ML IV SCH (04:07)
[2017-06-08] MEDS: inSUlin (REGULAR) HUMAN 1 UNIT/0.01 ML (CHARGE PER UNIT) SC SCH (05:21)
[2017-06-08] MEDS ORDERED: TROUGH ORDER-PHARMACY XX NR (07:00)
[2017-06-08 08:00] VITALS: BP 138/87
[2017-06-08] MEDS ORDERED: DOXY100C2 PO (08:49)
--- NOTE | 2017-06-08 08:53 | Discharge Inst-Simple/Standard ---
Discharge Inst-Standard Discharge Medications New, Converted or Re-Newed RX: Transmitted to Pharmacy Patient Instructions/Follow Up Plan of Care/Instructions/FU: ---follow up with Dr. Garrison for foot care. ---complete doxycycline ---stay hydrated ---rest ---continue to use walking boot when ambulatory Activity as Tolerated: Yes Discharge Diet: ADA Diet Return to The Hospital For: worsening illness. new concerns Planned Outpatient Orders/Ref. Pneu Vac Indicated: Yes JEREMIE SCHWAB MD Jun 08, 2017 08:53
[2017-06-08] MEDS: inSUlin DETERMIR 1 UNIT/0.01 ML (LEVEMIR) CHARGE PER UNIT SQ SCH (09:08)
[2017-06-08 11:15] VITALS: BP 138/87
--- NOTE | 2017-06-08 16:41 | Discharge Summary ---
Diagnosis/Chief Complaint Date of Admission Jun 06, 2017 at 22:54 Date of Discharge Jun 08, 2017 at 11:15 Admission Diagnosis Admission Diagnosis *sepsis due to right foot diabetic ulcer- *diabetes mellitus II with hyperglycemia *diabetic peripheral neuropathy *hypokalemia- *hypomagnesemia- *obesity *anxiety Discharge Diagnosis *sepsis due to right foot diabetic ulcer- sepsis resolved- *diabetes mellitus II with hyperglycemia *diabetic peripheral neuropathy *hypokalemia- resolved *hypomagnesemia- *obesity *anxiety Reason Hospital Visit 41-year-old male limited overnight or sepsis regarding a right foot ulcer. Patient has been following with Dr. Garrison the last few months. He is in a walking boot when ambulatory. Patient has a history of uncontrolled diabetes currently on metformin and Levemir. He feels like his foot ulcer has been improving over the last few months but yesterday around 2 o'clock in the afternoon noted a right groin pain followed by tingling in his arms and then shortness of breath at 4 p.m. This was followed up by cold sensation and chills which reminded him the last time he had sepsis and ended up losing his third toe of his right foot. Patient came to the ER where blood cultures were obtained and vancomycin and Zosyn were started with IV fluids. Patient was tachycardia, tachypneic, elevated leukocytosis, lactic acid was normal at 1.2. Patient has been on keflex for the right foot ulcer. Patient reports his appetite is normal- he has improved his diet with meal replacement shakes- decreasing his calorie and carbohydrate intake but his blood sugar remains elevated. Usually runs around 200-250. Pt also would like to note he has trouble sleeping due to neck stiffness and discomfort- this has been going on for years. Patient admitted for further workup. This AM pt reports a decrease in his shakes/chills. He does not feel like he knows what is going on or why current things are happening even though he is trying to improve his health. Discharge Summary Hospital Course Hospital Course 41 yo M admitted for sepsis likely due to a right foot ulcer. His chills and leukocytosis as well as tachycardia improved with IVF and IV antibiotics. He was monitored while blood cultures were being tested with the results being negative for growth. Since patient continued to improve through his stay he was stable for discharge to home on 06/08/17 to follow up with Dr. Garrison the following Tuesday to resume diabetic foot ulcer care. He was discharged on doxycycline po. Patient was no happy with his care overall, one reason being that he felt like his medical condition was not explained to him: why did he have chills- I took the time to further explain we don't always find out what bacteria/virus/ stress is causing a medication condition. I commended him on recognizing the signs of SIRS and that we were able to get him started on iv fluids and iv antibiotics- the fact that his blood culture did not grow a specific bacteria was a good thing. It would have been much worse had we isolated an infection from his blood stream. The important part is that with the medical interventions he was near baseline at discharge. Remington also noted that he was constantly brought more food to meet the 60 carbohydrates- staff has been educated that for diabetes the goal is to stay under the 60 carbs and not try to reach it. As for his hypokalemia it resolved with iv replacement and hypomagnesemia will resolved with resuming po intake. Pt was discharged on 06/08/17. Labs Procedures None. Discharge Physical Examination Allergies: Coded Allergies: No Known Drug Allergies (Unverified , 01/29/16) Vitals & I&Os Vital Signs Date Time Temp Pulse Resp B/P (MAP) Pulse Ox O2 Delivery O2 Flow Rate FiO2 06/08/17 11:15 83 18 138/87 98 Room Air 06/08/17 08:00 96.6 General Appearance: Alert, Oriented X3, Cooperative HEENT: Atraumatic Respiratory: Clear to Auscultation Cardiovascular: Regular Rate Abdominal: Soft Neuro: Normal Speech Psych/Mental Status: Mental Status NL, Mood NL (blunted) Discharge Home Medications Reviewed and agree with Discharge Medication list on patient's Discharge Instruction sheet Condition at Discharge stable Instructions to Patient/Family Please see electronic discharge instructions given to patient. Clinical Quality Measures DVT/VTE Risk/Contraindication: Risk Factor Score Per Nursin RFS Level Per Nursing on Admit: 3=High JEREMIE SCHWAB MD Jun 08, 2017 16:40
== END 2017-06-08 11:15 | disposition home or self-care (01) | DRG 872 ==
LOC: EDUNIT# 20:49 → ER 20:52 → UNDOADMIN 22:54 → 4TH 22:54 → UNDODISIN 06-08 11:15
PROVIDERS: ADMIT Family Medicine; ATTEND Family Medicine
DX: A41.9 Sepsis, unspecified organism (principal); E11.621 Type 2 diabetes mellitus with foot ulcer; L97.519 Non-pressure chronic ulcer of other part of right foot with unspecified severity; E11.42 Type 2 diabetes mellitus with diabetic polyneuropathy; E11.65 Type 2 diabetes mellitus with hyperglycemia; E87.6 Hypokalemia; E83.42 Hypomagnesemia; E66.9 Obesity, unspecified; F41.9 Anxiety disorder, unspecified; Z79.4 Long term (current) use of insulin; Z68.29 Body mass index [BMI] 29.0-29.9, adult
CPT/HCPCS: 36415; 71045; 73630; 80048; 80053; 80202; 81000; 82962; 83605; 83735; 84484; 85007; 85025; 85027; 85610; 85730; 87040; 87804; 93005; 96361; 96365; 96375

== ENCOUNTER 2017-07-19 10:54 | Inpatient (IN) | payer OTHER ==
[~2017-07-19] VITALS: Ht 185.4 cm; Wt 102.3 kg
[2017-07-19] VITALS (11 sets, daily range): BP systolic 123–151; BP diastolic 73–93
[~2017-07-19 10:54] MED LIST changes: +DOXY100C2 PO; +INSU100I29 SQ; +INSU100V5 SQ; +METF500T5 PO
[2017-07-19] MEDS ORDERED: inSUlin REGULAR TPN/DRIP ONLY 250 UNITS in NORMAL SALINE 250 ML IV SCH (12:30)
[2017-07-19] MEDS ORDERED: inSUlin (REGULAR) HUMAN 1 UNIT/0.01 ML (CHARGE PER UNIT) IV ONE (12:30)
[2017-07-19] MEDS ORDERED: DEXTROSE 50% 50 ML (IMS) SYR IV PRN ×3 (12:30→13:15)
[2017-07-19] MEDS ORDERED: inSUlin (REGULAR) HUMAN 1 UNIT/0.01 ML (CHARGE PER UNIT) IV SCH (13:00)
--- NOTE | 2017-07-19 13:31 | History & Physical-Hospitalist ---
History of Present Illness HPI/Chief Complaint Pt is a 41yoCM with a PMH of poorly controlled IDDMII who presented to [facility] ER via EMS with CC of lightheadedness. He states that he woke up Donaldo morning with a sore throat and his symptoms worsened with dry cough, stuffy nose, and ear pain. He went to work today and felt so lightheaded he had to lie down at which point EMS was called. On arrival to the ER he was found to be confused and have very elevated blood sugars (624) but was not acidotic or ketotic. He was placed on an insulin drip due to concern for HONKS though no osmolality is available on records. He was transferred here for ICU level care. He states he is feeling better now and his BS here is down to the 300s. He denies any new medications or missed doses of insulin. He has been taking NyQuil and DayQuil syrups and has not bought the diabetic kind. He denies any fevers but has had chills. Of note he does have a wound on his right foot that he has been dressing regularly. Source: patient Exam Limitations: no limitations Date Seen 07/19/17 Time Seen by Provider: 13:00 Attending Physician Itzel Wood MD PCP Telly Schwab MD Referring Physician Date of Admission July 19, 2017 at 12:42 pm Home Medications & Allergies Home Medications Reviewed patient Home Medication Reconciliation performed by pharmacy medication reconciliations premises technician and/or nursing. Patients Allergies have been reviewed. Allergies Allergies Coded Allergies No Known Drug Allergies (Nbmamhejqy13/8/16) Past Qxhuiin-Ltcanf-Jdvahc Hx Past Med/Social Hx: Reviewed Nursing Past Med/Soc Hx, Reviewed and Corrections made Patient Social History Marrital Status: single Employed/Student: employed Alcohol Use: Occasionally Uses Smoking Status: Never a Smoker Recent Hopitalizations: Yes Immunizations Up To Date Tetanus Booster (TDap): Unknown Seasonal Allergies Seasonal Allergies: No Past Medical History Surgeries: Orthopedic (right toe amputation) Reproductive: No diabetic gastroparesis Musculoskeletal: Amputee (right foot third toe) Endocrine: Diabetes, Non-Insulin dep History of Blood Disorders: No Family History Reviewed and Corrections made Cancer, Diabetes Review of Systems Constitutional: chills; No fever EENTM: ear pain, nose congestion, throat pain; No blurred vision, No double vision Respiratory: cough; No dyspnea on exertion, No hemoptysis, No phlegm, No short of breath Cardiovascular: No chest pain, No edema, No palpitations Gastrointestinal: No abdominal pain, No constipation, No diarrhea, No nausea, No vomiting Genitourinary: No dysuria, No frequency Musculoskeletal: No joint pain, No muscle pain Skin: No lesions, No rash Psychiatric/Neurological: Denies Headache, Denies Numbness, Denies Tingling Physical Exam Physical Exam Vital Signs Capillary Refill : General Appearance: No Apparent Distress, WD/WN HEENT: Moist Mucous Membranes; No Scleral Icterus (L), No Scleral Icterus (R) Neck: Supple; No JVD, No Thyromegaly Respiratory: Lungs Clear, No Accessory Muscle Use, No Respiratory Distress Cardiovascular: Regular Rate, Rhythm, No JVD, No Murmur, Normal Peripheral Pulses Gastrointestinal: Normal Bowel Sounds, Non Tender, Soft Extremity: No Calf Tenderness, No Pedal Edema, Other (third digit on right foot s/p amputation) Neurologic/Psychiatric: Alert, Oriented x3, No Motor/Sensory Deficits, Normal Mood/Affect Skin: Normal Color, Warm/Dry Results Results/Procedures Labs Patient resulted labs reviewed. Imaging: Reviewed Imaging Report Assessment/Plan [facility] Admission Status: Inpatient Order (span 2 midnights) Reason for Inpatient Admission: Insulin gtt, ICU level care Diagnosis/Problems Diagnosis/Problems (1) Hyperosmolar non-ketotic state in patient with type 2 diabetes mellitus Status: Acute Assessment & Plan: On insulin gtt Will attempt to titrate off tonight with home Levemir dose Will add sliding scale Insulin A Last A1c available was 11.7 in 2016 Will recheck Diabetic Education ordered Will add Lisinopril from renal protection Discussed with his PCP Dr Telly Schwab who will assume care for patient (2) Diabetic foot ulcer Status: Acute Assessment & Plan: Will get XR to evaluate for bone involvement Consider podiatry consult pending results No evidence of active infection- no indication for abx Qualifiers: Diabetic foot ulcer location: midfoot Diabetes mellitus type: type 2 Laterality: right Non-pressure ulcer stage: with other severity Qualified Codes: E11.621 - Type 2 diabetes mellitus with foot ulcer; L97.418 - Non- pressure chronic ulcer of right heel and midfoot with other specified severity (3) URTI (acute upper respiratory infection) Status: Acute Assessment & Plan: CXR at OSH negative Reviewed report- CD with image not available Advised to buy sugar free cough syrups and drops from now on (was not previously aware such a thing existed) (4) Gastroparesis Assessment & Plan: Resume home reglan (5) Prophylactic measure Assessment & Plan: ADA diet NS @125ml/hr Lovenox Copy Copies To 1: TELLY SCHWAB MD, KATELYN M MD July 19, 2017 1:31 pm
[2017-07-19] MEDS ORDERED: METO5TAB75 PO (13:39)
[2017-07-19] MEDS ORDERED: ONDANSETRON 4 MG/2 ML (SDV) Z0FRAN IV PRN (13:45)
[2017-07-19] MEDS ORDERED: MELATONIN 3 MG TABLET PO PRN (13:45)
[2017-07-19] MEDS ORDERED: MILK OF MAGNESIA 400 MG/5 ML 30 ML UDC PO PRN (13:45)
[2017-07-19] MEDS ORDERED: BISACODYL 10 MG SUPP (DULCOLAX) PR PRN (13:45)
[2017-07-19] MEDS ORDERED: BENZONATATE 100 MG (TESSALON) CAPSULE PO PRN (13:45)
[2017-07-19] MEDS ORDERED: ANTACID SUSP 30 ML UDC (MYLANTA) PO PRN (13:45)
[2017-07-19] MEDS ORDERED: ACETAMINOPHEN 500 MG TAB (TYLENOL) PO PRN (13:45)
[2017-07-19 13:48] LABS: BASOPHILS % (AUTO) 0 % (0-10); EOSINOPHILS # (AUTO) 0.2 10^3/uL (0.0-0.3); EOSINOPHILS % (AUTO) 2 % (0-10); HEMATOCRIT 36 % (40-54); HEMOGLOBIN 12.9 G/DL (13.3-17.7); LYMPHOCYTES # (AUTO) 1.6 X 10^3 (1.0-4.0); LYMPHOCYTES % (AUTO) 16 % (12-44); MEAN CORPUSCULAR HEMOGLOBIN 32 PG (25-34); MEAN CORPUSCULAR HGB CONC 36 G/DL (32-36); MEAN CORPUSCULAR VOLUME 89 FL (80-99); MEAN PLATELET VOLUME 9.3 FL (7.4-10.4); MONOCYTES # (AUTO) 1.2 X 10^3 (0.0-1.0); MONOCYTES % (AUTO) 12 % (0-12); NEUTROPHILS # (AUTO) 6.8 X 10^3 (1.8-7.8); NEUTROPHILS % (AUTO) 70 % (42-75); PLATELET COUNT 287 10^3/uL (130-400); RED BLOOD COUNT 4.09 10^6/uL (4.35-5.85); RED CELL DISTRIBUTION WIDTH 12.1 % (10.0-14.5); WHITE BLOOD COUNT 9.7 10^3/uL (4.3-11.0)
[2017-07-19] MEDS ORDERED: ACETAMINOPHEN 325 MG TABLET/CAPLET (TYLENOL) PO PRN (14:00)
[2017-07-19] MEDS ORDERED: ENOXAPARIN 40 MG/0.4 ML (LOVENOX) SYR SC SCH (14:00)
[2017-07-19 14:08] LABS: BUN/CREATININE RATIO 16; CALCIUM 9.6 MG/DL (8.5-10.1); CARBON DIOXIDE 28 MMOL/L (21-32); CHLORIDE 102 MMOL/L (98-107); CREATININE SERUM 0.88 MG/DL (0.60-1.30); GFR ESTIMATED > 60; GLUCOSE 258 MG/DL (70-105); POTASSIUM 3.7 MMOL/L (3.6-5.0); SODIUM 139 MMOL/L (135-145)
--- NOTE | 2017-07-19 14:31 | Diagnostic Imaging Report ---
INDICATION: Right foot ulcer. FINDINGS: Three views of the right foot show postop changes from amputation of the head of the third metatarsal and third phalanx. There is no acute fracture or dislocation. There is no appreciable osteolysis. IMPRESSION: Postop changes from amputation of the distal aspect of the third ray. No acute abnormality is seen. Dictated by: Dictated on workstation # [id number]
[2017-07-19] MEDS: NS IV 1000 ML 1,000 ML IV SCH ×3 (15:43→23:53)
[2017-07-19] MEDS ORDERED: CARBAM PEROX/GLYC/PROP 15 ML DROPS (DEBROX) EACH EAR PRN (16:30)
[2017-07-19] MEDS: inSUlin ASPART (NovoLOG) 1 UNIT/0.01 ML (CHARGE PER UNIT) SC SCH ×2 (17:27→21:12)
[2017-07-19] MEDS ORDERED: IBUPROFEN 600 MG (MOTRIN) TAB PO ONE (17:50)
[2017-07-19] MEDS: IBUPROFEN 600 MG (MOTRIN) TAB PO SCH (17:57)
[2017-07-19] MEDS ORDERED: inSUlin DETERMIR 1 UNIT/0.01 ML (LEVEMIR) CHARGE PER UNIT SQ SCH (19:00)
[2017-07-19] MEDS: HYDROcodone/APAP 5 MG/325 MG (LORTAB) TAB PO PRN (19:22)
[2017-07-19] MEDS ORDERED: guaiFENesin/DM (ROBITUSSIN DM) 10 ML UDC ONE (23:15)
[2017-07-19] MEDS: guaiFENesin/DM (ROBITUSSIN DM) 10 ML UDC PO PRN (23:21)
[2017-07-19] MEDS ORDERED: HYDROmorphone (DILAUDID) 4 MG TAB ONE (23:23)
[2017-07-19] MEDS ORDERED: HYDROmorphone (DILAUDID) 2 MG TAB PO ONE (23:30)
[2017-07-19] MEDS ORDERED: HYDROmorphone (DILAUDID) 4 MG TAB PO ONE (23:30)
[2017-07-20] VITALS (14 sets, daily range): BP systolic 122–157; BP diastolic 74–86
[2017-07-20] MEDS ORDERED: KETOROLAC 30 MG/ML VIAL IV ONE (01:45)
[2017-07-20] MEDS ORDERED: AUGMENTIN 875 MG TAB (AMOXICILLIN/CLAVULANATE) PO SCH (01:45)
[2017-07-20] MEDS ORDERED: KETOROLAC 30 MG/ML VIAL IVP ONE (01:45)
[2017-07-20] MEDS: AUGMENTIN 875 MG TAB (AMOXICILLIN/CLAVULANATE) PO SCH ×2 (01:51→08:31)
[2017-07-20 04:45] LABS: BASOPHILS % (AUTO) 0 % (0-10); EOSINOPHILS # (AUTO) 0.3 10^3/uL (0.0-0.3); EOSINOPHILS % (AUTO) 2 % (0-10); HEMATOCRIT 35 % (40-54); HEMOGLOBIN 12.1 G/DL (13.3-17.7); LYMPHOCYTES # (AUTO) 1.2 X 10^3 (1.0-4.0); LYMPHOCYTES % (AUTO) 11 % (12-44); MEAN CORPUSCULAR HEMOGLOBIN 31 PG (25-34); MEAN CORPUSCULAR HGB CONC 34 G/DL (32-36); MEAN CORPUSCULAR VOLUME 89 FL (80-99); MEAN PLATELET VOLUME 9.8 FL (7.4-10.4); MONOCYTES # (AUTO) 1.2 X 10^3 (0.0-1.0); MONOCYTES % (AUTO) 11 % (0-12); NEUTROPHILS # (AUTO) 8.3 X 10^3 (1.8-7.8); NEUTROPHILS % (AUTO) 76 % (42-75); PLATELET COUNT 303 10^3/uL (130-400); RED BLOOD COUNT 3.95 10^6/uL (4.35-5.85); RED CELL DISTRIBUTION WIDTH 12.3 % (10.0-14.5)
[2017-07-20 05:03] LABS: BUN/CREATININE RATIO 17; CALCIUM 8.4 MG/DL (8.5-10.1); CARBON DIOXIDE 21 MMOL/L (21-32); CHLORIDE 103 MMOL/L (98-107); CREATININE SERUM 0.76 MG/DL (0.60-1.30); GFR ESTIMATED > 60; GLUCOSE 274 MG/DL (70-105); POTASSIUM 3.7 MMOL/L (3.6-5.0); SODIUM 136 MMOL/L (135-145)
[2017-07-20] MEDS: HYDROcodone/APAP 5 MG/325 MG (LORTAB) TAB PO PRN (05:25)
[2017-07-20] MEDS: IBUPROFEN 600 MG (MOTRIN) TAB PO SCH (05:25)
[2017-07-20] MEDS: inSUlin ASPART (NovoLOG) 1 UNIT/0.01 ML (CHARGE PER UNIT) SC SCH (05:30)
[2017-07-20] MEDS ORDERED: CHLORASEPTIC SPRAY 177 ML LIQUID MC PRN (07:00)
[2017-07-20] MEDS ORDERED: metFORMIN 500 MG (GLUCOPHAGE) TAB PO SCH (07:00)
[2017-07-20] MEDS: guaiFENesin/DM (ROBITUSSIN DM) 10 ML UDC PO PRN (08:31)
[2017-07-20] MEDS: NS IV 1000 ML 1,000 ML IV SCH (08:43)
[2017-07-20] MEDS ORDERED: CIPROFLOXACIN OT SCH (09:00)
[2017-07-20] MEDS ORDERED: NEOMY/POLYM/HC (CORTISPORIN) 10 ML BTL OT SCH (09:00)
[2017-07-20] MEDS ORDERED: HYDROCORTISONE OT SCH (09:00)
[2017-07-20] MEDS ORDERED: FLUTICASONE NASAL SPRAY (FLONASE) 16 GM BTL NS SCH (09:00)
[2017-07-20] MEDS ORDERED: lisINopril 5 MG (PRINIVIL) TABLET PO SCH (09:00)
[2017-07-20] MEDS ORDERED: METOCLOPRAMIDE 5 MG (REGLAN) TAB PO SCH (09:00)
--- NOTE | 2017-07-20 11:00 | Discharge Summary ---
Diagnosis/Chief Complaint Date of Admission July 19, 2017 at 12:42 Date of Discharge Jul 20 2017 Admission Diagnosis Admission Diagnosis (1) Hyperosmolar non-ketotic state in patient with type 2 diabetes mellitus (2) Diabetic foot ulcer (3) URTI (acute upper respiratory infection) (4) Gastroparesis Discharge Diagnosis (1) Hyperosmolar non-ketotic state in patient with type 2 diabetes mellitus - resolved (2) Diabetic foot ulcer (3) URTI (acute upper respiratory infection) (4) Gastroparesis (5) acute otitis media right ear Reason Hospital Visit Pt is a 41yoCM with a PMH of poorly controlled IDDMII who presented to [facility] via EMS with CC of lightheadedness. He states that he woke up Tuesday morning with a sore throat and his symptoms worsened with dry cough, stuffy nose, and ear pain. He went to work today and felt so lightheaded he had to lie down at which point EMS was called. On arrival to the ER he was found to be confused and have very elevated blood sugars (624) but was not acidotic or ketotic. He was placed on an insulin drip due to concern for HONKS though no osmolality is available on records. He was transferred here for ICU level care. He states he is feeling better now and his BS here is down to the 300s. He denies any new medications or missed doses of insulin. He has been taking NyQuil and DayQuil syrups and has not bought the diabetic kind. He denies any fevers but has had chills. Of note he does have a wound on his right foot that he has been dressing regularly. Discharge Summary Hospital Course Hospital Course 41 yo M transfer from [facility] for hyperosmolar hyperglycemia on an insulin gtts of which he was subsequently titrated off the same day of admission and placed back on his home dosage of 20 units of levemir. On further discussion patient's blood sugar is in the 300s when he occassionally checks it. He is poorly controlled as demonstrated by his hga1c of >13. He reports he is feeling much better the following morning and deemed stable for discharge to home. His diabetic foot ulcer was dressed and he will continue to wear his flat diabetic shoe. Symptomatic treatment for his URI. His home reglan was continued for his gastroparesis. He did complain of right ear pain and it was noted to be erythematous and bulging so he was started on augmentin and ear drops. Follow up in 2 weeks at [facility] Since I have not improved his diabetes and he expressed interest in seeing an business objects architect We will refer him to Endocrinology when he lets us know who he would like to go to. Patient will need to put forth a better effort in controlling his diabetes. Also his foot care appts with Dr. Garrison (he notes that he has missed a couple because work has needed him and did not want to let him off). Increased his levemir to 25 units qhs- and bring a week log of blood sugars to his follow up visit. Keep Dr. Garrison appointments for his foot ulcer. Labs Laboratory Tests 07/19/17 12:57: Glucometer 363H 07/19/17 13:40: Red Blood Count 4.09L, Hemoglobin 12.9L, Hematocrit 36L, Monocytes # (Auto) 1.2H , Glucose Level 258H, Mean Blood Glucose 349H, Hemoglobin A1c 13.8H 07/19/17 13:58: Glucometer 257H 07/19/17 15:06: Glucometer 164H 07/19/17 16:14: Glucometer 119H 07/19/17 17:18: Glucometer 153H 07/19/17 18:55: Glucometer 127H 07/19/17 20:04: Glucometer 166H 07/19/17 21:06: Glucometer 181H 07/20/17 03:40: Red Blood Count 3.95L, Hemoglobin 12.1L, Hematocrit 35L, Neutrophils (%) (Auto) 76H, Lymphocytes (%) (Auto) 11L, Neutrophils # (Auto) 8.3H, Monocytes # (Auto) 1.2H, Glucose Level 274H, Calcium Level 8.4L 07/20/17 05:23: Glucometer 281H Procedures None. Discharge Physical Examination Allergies: Coded Allergies: No Known Drug Allergies (Unverified , 01/29/16) Vitals & I&Os Vital Signs Date Time Temp Pulse Resp B/P (MAP) Pulse Ox O2 Delivery O2 Flow Rate FiO2 07/20/17 11:40 89 20 137/76 98 Room Air 07/20/17 08:00 97.5 07/19/17 13:53 21 General Appearance: Alert, Oriented X3 HEENT: Atraumatic Respiratory: Clear to Auscultation Cardiovascular: Regular Rate Abdominal: Normal Bowel Sounds, Soft Extremities: No Clubbing Neuro: Normal Speech, Strength at 5/5 X4 Ext Psych/Mental Status: Mental Status NL Discharge Home Medications Reviewed and agree with Discharge Medication list on patient's Discharge Instruction sheet Condition at Discharge Stable Instructions to Patient/Family Please see electronic discharge instructions given to patient. Clinical Quality Measures DVT/VTE Risk/Contraindication: Risk Factor Score Per Nursin RFS Level Per Nursing on Admit: 1=Low/No VTE PPX JEREMIE SCHWAB MD July 20, 2017 11:00
[2017-07-20] MEDS ORDERED: INSU100I29 SQ (11:12)
[2017-07-20] MEDS ORDERED: LISI-556 PO (11:12)
[2017-07-20] MEDS ORDERED: AMOX1TAB12 PO (11:12)
[2017-07-20] MEDS ORDERED: [UNRECOGNIZED DRUG - CODE] EACH EAR (11:12)
[2017-07-20] MEDS ORDERED: NEOM10DR42 OT (11:12)
--- NOTE | 2017-07-20 11:14 | Discharge Inst-Simple/Standard ---
Discharge Inst-Standard Patient Instructions/Follow Up Plan of Care/Instructions/FU: ---Follow up in 2 weeks at [facility] ----We will refer him to Endocrinology when he lets us know who he would like to go to. ----Increased his levemir to 25 units qhs- and bring a week log of blood sugars to his follow up visit. ---Complete antibiotics for your right ear infection ---added lisinopril 5mg for blood pressure and renal protection ----Keep Dr. Garrison appointments for his foot ulcer. Activity as Tolerated: Yes Discharge Diet: ADA Diet Return to The Hospital For: new concerns Planned Outpatient Orders/Ref. Pneu Vac Indicated: Yes JEREMIE SCHWAB MD July 20, 2017 11:14
[2017-07-20] MEDS ORDERED: inSUlin DETERMIR 1 UNIT/0.01 ML (LEVEMIR) CHARGE PER UNIT SQ SCH (21:00)
== END 2017-07-20 11:48 | disposition home or self-care (01) | DRG 638 ==
LOC: ICU 12:42
PROVIDERS: ADMIT Family Medicine; ATTEND Family Medicine
DX: E11.00 Type 2 diabetes mellitus with hyperosmolarity without nonketotic hyperglycemic-hyperosmolar coma (NKHHC) (principal); E11.621 Type 2 diabetes mellitus with foot ulcer; L97.418 Non-pressure chronic ulcer of right heel and midfoot with other specified severity; J06.9 Acute upper respiratory infection, unspecified; H66.91 Otitis media, unspecified, right ear; E11.43 Type 2 diabetes mellitus with diabetic autonomic (poly)neuropathy; Z89.421 Acquired absence of other right toe(s); Z79.4 Long term (current) use of insulin
CPT/HCPCS: 36415; 73620; 80048; 82962; 83036; 85025

== ENCOUNTER → 2017-09-19 | Outpatient (CLI) | payer OTHER ==
[~2017-09-19] MED LIST changes: +AMOX1TAB12 PO; +CEFD300C3 PO; +METO5TAB75 PO; +NEOM10DR42 OT; +[UNRECOGNIZED DRUG - CODE] EACH EAR
== END ==
LOC: WOUNDCARE 09:24
PROVIDERS: ATTEND Surgery
DX: E11.621 Type 2 diabetes mellitus with foot ulcer (principal); L97.512 Non-pressure chronic ulcer of other part of right foot with fat layer exposed; E11.42 Type 2 diabetes mellitus with diabetic polyneuropathy; E11.65 Type 2 diabetes mellitus with hyperglycemia
CPT/HCPCS: 11042

== ENCOUNTER 2017-09-24 21:14 | Inpatient (IN) | payer OTHER ==
[~2017-09-24] VITALS: Ht 185.4 cm; Wt 98.0 kg
[~2017-09-24 21:14] MED LIST changes: -CEFD300C3 PO
--- OUTSIDE RECORDS SUMMARY | 2017-09-24 21:24 | XMS REPORT | Clinical Summary ---
Author Author [facility] Organization [facility] Address Unknown Phone Unavailable Care Team Providers Care Memorial Adviser Name Role Phone Rocael Heard MD Unavailable Manuel Sparrow MD PCP Source Comments Some departments are not documenting in the electronic medical record. If you do not see the information that you expected, contact Release of Information in the Health Information Management department at [phone] for further assistance in locating additional records.[facility] Allergies No Known Allergies Current Medications Prescription [...]
--- OUTSIDE RECORDS SUMMARY | 2017-09-24 21:24 | XMS REPORT ---
Author Author SAKINA ABREU 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 Z79.4 Active 569214903 Problem Type 2 diabetes mellitus without complication, unspecified rodent exterminator insulin use status E11.9 Active 374487834 Problem Type 2 diabetes mellitus without complication, without long-term current use of insulin E11.9 Active 483791188 Problem Anxiety F41.9 Active 37707566 Problem 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 Active 103559882 ALLERGIES Substance Reaction Event Type Date Status Febuvia Unknown Drug Allergy Apr, Active ENCOUNTERS Encounter Location Date Diagnosis [facility] [address] [place] [address] Apr, Acute bacterial conjunctivitis of right eye H10.31 [facility] [address] [place] [address] Feb, Type 2 diabetes mellitus with other skin ulcer E11.622 ; halfway current use of insulin Z79.4 ; Anxiety F41.9 and 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 [facility] [address] [place] [address] Jan, Type 2 diabetes mellitus without complication, unspecified rodent exterminator insulin use status E11.9 [facility] [address] [place] [address] Jan, [facility] [address] [address] Jan, [facility] [id number] [place] [address] Jan, [facility] [id number] [place] [address] Dec, Type 2 diabetes mellitus without complication, without long- term current use of insulin E11.9 ; Type 2 diabetes mellitus with foot ulcer E11.621 ; Essential hypertension I10 ; Mixed hyperlipidemia E78.2 and Non compliance with medical treatment Z91.19 [facility] [id number] [place] [address] Aug, [facility] [id number] [place] [address] Aug, [facility] [id number] [place] [address] Aug, [facility] [address] [place] [address] Aug, Diabetes with other specified manifestations, type II or unspecified type, not stated as uncontrolled 250.80 ; Hyperlipidemia 272.4 ; Hypertension 401.9 ; Restless leg syndrome 333.94 and Foot ulcer, right 707.15 [facility] [address] [address] Jul, [facility] [address] [address] Jul, [facility] [address] [address] Jul, [facility] [address] [address] May, [facility] [address] [address] May, [facility] [place] [facility] [address] [id number] [place] [address] Apr, [facility] [place] [facility] [address] [id number] [place] [address] Apr, [facility] [place] [facility] [address] [id number] [place] [address] Apr, [facility] [place] [facility] [address] [id number] [place] [address] Apr, [facility] [place] [facility] [address] [id number] [place] [address] Apr, [facility] [place] [facility] [address] [id number] [place] [address] Apr, [facility] [place] [facility] [address] [id number] [place] [address] Feb, [facility] [place] [facility] [address] [id number] [place] [address] Feb, [facility] [place] [facility] [address] [id number] [place] [address] Feb, [facility] [place] [facility] [address] [id number] [place] [address] Feb, [facility] [place] [facility] [address] [id number] [place] [address] Jan, [facility] [place] [facility] [address] [id number] [place] [address] Jan, [facility] [place] [facility] [address] [id number] [place] [address] Dec, [facility] [place] [facility] [address] [id number] [place] [address] Dec, [facility] [place] [facility] [address] [id number] [place] [address] Dec, [facility] [place] [facility] [address] [id number] [place] [address] Dec, [facility] [place] [facility] [address] [id number] [place] [address] Dec, [facility] [place] [facility] [address] [id number] [place] [address] Dec, [facility] [place] [facility] [address] [id number] [place] [address] Dec, [facility] [place] [facility] [address] [id number] [place] [address] Dec, [facility] [place] [facility] [address] [id number] [place] [address] Nov, [facility] [place] [facility] [address] [id number] [place] [address] Nov, [facility] [place] [facility] [address] [id number] [place] [address] Nov, [facility] [place] [facility] [address] [id number], [place] [address] Oct, [facility] [place] [facility] [address] [id number] [place] [address] Oct, [facility] [place] [facility] [address] [id number] [place] [address] Oct, [facility] [place] [facility] [address] [id number], [place] [address] Oct, [facility] [place] [facility] [address] [id number], [place] [address] Jul, [facility] [place] [facility] [address] [id number] [place] [address] Jul, [facility] [place] [facility] [address] [id number], [place] [address] Jul, [facility] [place] [facility] [address] [id number], [place] [address] Jul, [facility] [place] [facility] [address], [place] [address] Jul, [facility] [address] [address] Jul, [facility] [address] [address] June, [facility] [address] [address] June, [facility] [address] [place] [address] June, [facility] [address] [place] [address] 17[address]31[address] June, [facility] [address], [place] [address] May, [facility] [address], [place] [address] May, [facility] [address] [place] [address] May, [facility] [address] [place] [address] May, [facility] [id number] [address] May, [facility] [address] [address] May, [facility] [id number] [address] May, IMMUNIZATIONS No Known Immunizations SOCIAL HISTORY Never Assessed REASON FOR VISIT right eye pain, red, denies itching. son has pink eye. 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 [email or web address] PLAN OF CARE Activity Details Follow Up prn Reason: VITAL SIGNS Height 72 in 2017-05-21 Weight 222.0 lbs 2017-05-21 Temperature 97.5 degrees Fahrenheit 2017-05-21 Heart Rate 84 bpm 2017-05-21 Respiratory Rate 20 2017-05-21 BMI 30.11 kg/m2 2017-05-21 Blood pressure systolic 132 mmHg 2017-05-21 Blood pressure diastolic 72 mmHg 2017-05-21 MEDICATIONS Medication Instructions Dosage Frequency Start Date End Date Duration Status Atorvastatin Calcium 20 mg Orally twice a day 1 tablet 12h Not- Taking BusPIRone HCl 10 mg Orally Twice a day prn 1 tablet Feb, 14 days Not-Taking Levemir Flexpen Active Metformin HCl 1000 MG Orally Twice a day 1 tablet with meals 12h 30 days Active Lantus 100 UNIT/ML Subcutaneous 2 times a day 6 units 12h Not- Taking Sqyjuqnd-Fdvwjfmqw-Iehfygwg 0.1 % Ophthalmic Four times a day 1 drop into affected eye 6h Apr, 7 days Active Lisinopril 10 MG Orally Once a day 1 tablet 24h 30 days Not-Taking Multivitamin Not-Taking Farxiga 5 mg Orally Once a day 1 tablet 24h Not-Taking Betadine 5 % Not-Taking Glimepiride 4 MG Orally 2 times a day 1 tablet 12h 30 days Not- Taking BD Insulin Syringe Ultrafine 31G X 5/16 as directed Dec, Not-Taking RESULTS No Results PROCEDURES No Known procedures INSTRUCTIONS MEDICATIONS ADMINISTERED No Known Medications MEDICAL (GENERAL) HISTORY Type Description Date Medical History diabetes mellitus Medical History restless leg syndrome Medical History right eye blindness since Medical History cervicalgia-neck pain Medical History Cellulitis and abscess of foot, except toes Medical History Diabetes with other specified manifestations, type II or unspecified type, not stated as uncontrolled Medical History Depressive disorder, not elsewhere classified Medical History Hyperlipidemia Medical History Hypertension Surgical History dental surgery-wisdom teeth Surgical History surgically drained infection on right leg x 2 Surgical History amputation one toe - rt foot 01/2016 Surgical History PICC line - rt 01/2016 Hospitalization History leg infection 2005 Hospitalization History leg infection 2012 Hospitalization History non healing diabetic foot ulcer-[facility] 01/29/2016
[2017-09-24 22:04] LABS: BASOPHILS # (AUTO) 0.1 10^3/uL (0.0-0.1); BASOPHILS % (AUTO) 0 % (0-10); EOSINOPHILS # (AUTO) 0.2 10^3/uL (0.0-0.3); EOSINOPHILS % (AUTO) 1 % (0-10); HEMATOCRIT 43 % (40-54); HEMOGLOBIN 15.3 G/DL (13.3-17.7); LYMPHOCYTES # (AUTO) 1.7 X 10^3 (1.0-4.0); LYMPHOCYTES % (AUTO) 10 % (12-44); MEAN CORPUSCULAR HEMOGLOBIN 31 PG (25-34); MEAN CORPUSCULAR HGB CONC 35 G/DL (32-36); MEAN CORPUSCULAR VOLUME 88 FL (80-99); MEAN PLATELET VOLUME 10.3 FL (7.4-10.4); MONOCYTES % (AUTO) 6 % (0-12); NEUTROPHILS # (AUTO) 13.9 X 10^3 (1.8-7.8); NEUTROPHILS % (AUTO) 83 % (42-75); PLATELET COUNT 303 10^3/uL (130-400); RED BLOOD COUNT 4.94 10^6/uL (4.35-5.85); RED CELL DISTRIBUTION WIDTH 13.2 % (10.0-14.5); WHITE BLOOD COUNT 16.9 10^3/uL (4.3-11.0)
[2017-09-24 22:13] LABS: INR 0.9 (0.8-1.4); PROTHROMBIN TIME PATIENT 12.4 SEC (12.2-14.7)
[2017-09-24 22:17] LABS: ALANINE AMINOTRANSFERASE 26 U/L (0-55); ALBUMIN 4.4 GM/DL (3.2-4.5); ALKALINE PHOSPHATASE 108 U/L (40-136); BILIRUBIN,TOTAL 0.6 MG/DL (0.1-1.0); BUN/CREATININE RATIO 14; CALCIUM 9.7 MG/DL (8.5-10.1); CARBON DIOXIDE 23 MMOL/L (21-32); CHLORIDE 96 MMOL/L (98-107); CREATININE SERUM 1.11 MG/DL (0.60-1.30); GFR ESTIMATED > 60; GLUCOSE 333 MG/DL (70-105); MAGNESIUM 1.9 MG/DL (1.8-2.4); POTASSIUM 3.8 MMOL/L (3.6-5.0); SODIUM 134 MMOL/L (135-145); TOTAL PROTEIN 7.7 GM/DL (6.4-8.2)
[2017-09-24 22:19] LABS: BAND NEUTROPHILS 8 %; BASOPHILS % (MANUAL) 0 %; EOSINOPHILS % (MANUAL) 2 %; LYMPHOCYTES % (MANUAL) 14 %; MONOCYTES % (MANUAL) 5 %; NEUTROPHILS % (MANUAL) 71 %
[2017-09-24 22:20] LABS: RBC MORPH NORMAL
[2017-09-24 22:26] LABS: BILIRUBIN,URINE NEGATIVE (NEGATIVE); CLARITY,URINE CLEAR; COLOR,URINE YELLOW; GLUCOSE, URINE (UA) 4+ (NEGATIVE); KETONES,URINE 1+ (NEGATIVE); LEUKOCYTE ESTERASE ,URINE NEGATIVE (NEGATIVE); NITRITE,URINE NEGATIVE (NEGATIVE); PH,URINE 6 (5-9); PROTEIN,URINE 2+ (NEGATIVE); UROBILINOGEN,URINE NORMAL (NORMAL)
--- NOTE | 2017-09-24 22:28 | ED General ---
General Chief Complaint: Skin/Wound Problems Stated Complaint: WOUND ON FOOT Source of Information: Patient, Spouse History of Present Illness Date Seen by Provider: Sep 24, 2017 Time Seen by Provider: 21:50 Initial Comments PT ARRIVES VIA POV FROM HOME STATES HE BEGAN SHAKING UNCONTROLLABLY AN HOUR AGO NOTICED BLOODY DRAINAGE FROM CHRONIC RIGHT FOOT WOUND JUST PRIOR TO ARRIVAL PT IS DIABETIC, AND HAS HAD WOUND ON RIGHT FOOT FOR YEARS. HAD RIGHT 3RD TOE AMPUTATED 01/2017, AND HAS HAD PERSISTENT WOUND ON FOOT SINCE THEN. SEES DR. VALDEZ AT WOUND CLINIC, AND HAD ROUTINE FOLLOW UP WITH DEBRIDEMENT OF WOUND ON Tuesday09/19/17. PT HAS ALSO HAD PAIN TO MEDIAL ASPECT OF RIGHT THIGH, AND NOTICED HE WAS WALKING WITH A LIMP TONIGHT. HAS HISTORY OF SAME DID NOT CHECK TEMP AT HOME, IS 97.8 ON ARRIVAL HERE PT STATES BLOOD SUGARS HAVE BEEN HIGH TODAY--IN 300'S--PT IS ON LEVEMIR AND METFORMIN HAS BEEN REFERRED TO [facility] [employer] [facility], NO APPOINTMENT MADE YET. PCP: DR. JEREMIE SCHWAB WOUND CARE: DR. VALDEZ Allergies and Home Medications Allergies Coded Allergies: No Known Drug Allergies (Unverified , 01/29/16) Home Medications Insulin Detemir 100 Unit/1 Ml Insuln.pen, 25 UNIT SQ HS Prescribed by: JEREMIE SCHWAB on 07/20/17 1112 Metformin HCl 500 Mg Tablet, 500 MG PO BID WITH MEALS, (Reported) Metoclopramide HCl 5 Mg Tablet, 5 MG PO DAILY, (Reported) Patient Home Medication List Home Medication List Reviewed: Yes Review of Systems Constitutional: see HPI, chills EENTM: no symptoms reported Respiratory: no symptoms reported Cardiovascular: no symptoms reported Gastrointestinal: no symptoms reported Genitourinary: no symptoms reported Musculoskeletal: see HPI, other (HAS HAD PAIN TO MEDIAL ASPECT OF RIGHT THIGH TODAY) Skin: see HPI Psychiatric/Neurological: Pre-Existing Deficit (NERIPHERAL NEUROPATHY) Hematologic/Lymphatic: No Symptoms Reported Immunological/Allergic: no symptoms reported Past Qkkoqmv-Ojetls-Jfzdjt Hx Patient Social History Alcohol Use: Rarely Uses Recreational Drug Use: No Smoking Status: Never a Smoker Recent Foreign Travel: No Contact w/Someone Who Travel: No Recent Hopitalizations: No Physical Abuse: No Sexual Abuse: No Mistreated: No Fear: No Immunizations Up To Date Tetanus Booster (TDap): Unknown Seasonal Allergies Seasonal Allergies: No Past Medical History Surgeries: Yes (R 3rd metatarsal amputation, abscess removed x2 right thigh) Amputation, Orthopedic Respiratory: No Cardiac: No Neurological: Yes Neuropathy Reproductive Disorders: No Genitourinary: No Gastrointestinal: No Musculoskeletal: Yes (right 3rd metatarsal amputation) Amputee Endocrine: Yes Diabetes, Insulin dep HEENT: No Cancer: No Psychosocial: No Nursing Suicide Risk Score: 1 Integumentary: Yes (chronic wound bottom R foot; ABSCESSES) Blood Disorders: No Family Medical History Cancer, Diabetes Physical Exam Vital Signs Vital Signs - First Documented 09/24/17 21:35 Temp 97.8 Pulse 121 Resp 24 B/P (MAP) 141/110 (120) Pulse Ox 100 O2 Delivery Room Air Capillary Refill : Height, Weight, BMI Height: 6'1.00" Weight: 225lbs. 8.0oz. 102.049432kd; 29.5 BMI Method:Stated General Appearance: No Apparent Distress, WD/WN, Other (SHIVERING. ) Neck: Full Range of Motion, Normal Inspection, Non Tender, Supple Respiratory: Normal Breath Sounds, No Accessory Muscle Use, No Respiratory Distress Cardiovascular: No Edema, No JVD, No Murmur, Normal Peripheral Pulses, Tachycardia Gastrointestinal: Non Tender, Soft Back: No CVA Tenderness, No Vertebral Tenderness Extremity: No Pedal Edema, Slow Capillary Refill, Other (WOUND TO BOTTOM OF RIGHT FOOT AT BASE OF 4TH TOE/MTP JOINT, WITH SMALL AMOUNT OF BLOODY DRAINAGE. SMALL OPEN AREA, BUT HAS SUB Q DUSKINESS OF 1/2 X 1 CM IN DIAMETER. RIGHT 3RD TOE AMPUTATED. MARKED TENDERNESS TO MEDIAL ASPECT OF RIGHT THIGH, UP TO GROIN. NO SWELLING, DISCOLORATION OR CORDING. + RIGHT INGUINAL ADENOPATHY--TENDER TO PALPATION. 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 Norm as Tested, Sensory Deficit (SLIGHTLY DECREASED SENSATION TO FEET) Skin: Normal Color, Warm/Dry, Other (RIGHT FOOT WOUND NOTED ABOVE) Focused Exam Lactate Level 09/24/17 21:46: Lactic Acid Level 3.48*H 09/24/17 23:49: Lactic Acid Level 1.02 Lactic Acid Level Progress/Results/Core Measures Suspected Sepsis SIRS Temperature: Pulse: Respiratory Rate: Laboratory Tests 09/24/17 21:46: White Blood Count 16.9H 09/25/17 05:25: White Blood Count 13.6H Blood Pressure / Mean: 09/24/17 21:46: Lactic Acid Level 3.48*H 09/24/17 23:49: Lactic Acid Level 1.02 Laboratory Tests 09/24/17 21:46: Creatinine 1.11, INR Comment 0.9, Platelet Count 303, Total Bilirubin 0.6 09/25/17 05:25: Creatinine 0.92, Platelet Count 241, Total Bilirubin 0.8 Results/Orders Lab Results Laboratory Tests Test 09/24/17 21:46 09/24/17 22:14 09/24/17 23:49 09/25/17 05:25 Range/Units White Blood Count 16.9 H 13.6 H 4.3-11.0 10^3/uL Red Blood Count 4.94 4.35 4.35-5.85 10^6/uL Hemoglobin 15.3 13.5 13.3-17.7 G/DL Hematocrit 43 39 L 40-54 % Mean Corpuscular Volume 88 89 80-99 FL Mean Corpuscular Hemoglobin 31 31 25-34 PG Mean Corpuscular Hemoglobin Concent 35 35 32-36 G/DL Red Cell Distribution Width 13.2 13.1 10.0-14.5 % Platelet Count 303 241 130-400 10^3/uL Mean Platelet Volume 10.3 10.3 7.4-10.4 FL Neutrophils (%) (Auto) 83 H 86 H 42-75 % Lymphocytes (%) (Auto) 10 L 7 L 12-44 % Monocytes (%) (Auto) 6 6 0-12 % Eosinophils (%) (Auto) 1 1 0-10 % Basophils (%) (Auto) 0 0 0-10 % Neutrophils # (Auto) 13.9 H 11.7 H 1.8-7.8 X 10^3 Lymphocytes # (Auto) 1.7 1.0 1.0-4.0 X 10^3 Monocytes # (Auto) 1.0 0.9 0.0-1.0 X 10^3 Eosinophils # (Auto) 0.2 0.1 0.0-0.3 10^3/uL Basophils # (Auto) 0.1 0.0 0.0-0.1 10^3/uL Neutrophils % (Manual) 71 % Lymphocytes % (Manual) 14 % Monocytes % (Manual) 5 % Eosinophils % (Manual) 2 % Basophils % (Manual) 0 % Band Neutrophils 8 % Blood Morphology Comment NORMAL Erythrocyte Sedimentation Rate 5 0-15 MM/HR Prothrombin Time 12.4 12.2-14.7 SEC INR Comment 0.9 0.8-1.4 Activated Partial Thromboplast Time 27 24-35 SEC Sodium Level 134 L 133 L 135-145 MMOL/L Potassium Level 3.8 3.9 3.6-5.0 MMOL/L Chloride Level 96 L 101 98-107 MMOL/L Carbon Dioxide Level 23 23 21-32 MMOL/L Anion Gap 15 H 9 5-14 MMOL/L Blood Urea Nitrogen 15 15 7-18 MG/DL Creatinine 1.11 0.92 0.60-1.30 MG/DL Estimat Glomerular Filtration Rate > 60 > 60 BUN/Creatinine Ratio 14 16 Glucose Level 333 H 367 H 70-105 MG/DL Lactic Acid Level 3.48 *H 1.02 0.50-2.00 MMOL/L Calcium Level 9.7 8.7 8.5-10.1 MG/DL Magnesium Level 1.9 1.8-2.4 MG/DL Total Bilirubin 0.6 0.8 0.1-1.0 MG/DL Aspartate Amino Transf (AST/SGOT) 15 12 5-34 U/L Alanine Aminotransferase (ALT/SGPT) 26 21 0-55 U/L Alkaline Phosphatase 108 83 40-136 U/L C-Reactive Protein High Sensitivity 0.53 H 0.00-0.50 MG/DL Total Protein 7.7 6.1 L 6.4-8.2 GM/DL Albumin 4.4 3.6 3.2-4.5 GM/DL Urine Color YELLOW Urine Clarity CLEAR Urine pH 6 5-9 Urine Specific S[place]d 1.015 L 1.016-1.022 Urine Protein 2+ H NEGATIVE Urine Glucose (UA) 4+ H NEGATIVE Urine Ketones 1+ H NEGATIVE Urine Nitrite NEGATIVE NEGATIVE Urine Bilirubin NEGATIVE NEGATIVE Urine Urobilinogen NORMAL NORMAL MG/DL Urine Leukocyte Esterase NEGATIVE NEGATIVE Urine RBC (Auto) NEGATIVE NEGATIVE Urine RBC NONE /HPF Urine WBC RARE /HPF Urine Squamous Epithelial Cells 0-2 /HPF Urine Crystals NONE /LPF Urine Bacteria NONE /HPF Urine Casts NONE /LPF Urine Mucus NEGATIVE /LPF Urine Culture Indicated NO My Orders Orders - JOVANI MACDONALD DO Saline Lock/Iv-Start (09/24/17 21:57) Cbc With Automated Diff (09/24/17 21:57) Comprehensive Metabolic Panel (09/24/17 21:57) Lactic Acid Analyzer (09/24/17 21:57) Magnesium (09/24/17 21:57) Protime With Inr (09/24/17 21:57) Partial Thromboplastin Time (09/24/17 21:57) Ua Culture If Indicated (09/24/17 21:57) Blood Culture (09/24/17 21:57) Wound Culture (09/24/17 21:57) Foot, Right, 3 View (09/24/17 21:57) Manual Differential (09/24/17 21:46) Vancomycin Injection (Vancomycin Injecti (09/24/17 22:45) Hs C Reactive Protein (09/24/17 22:36) Erythrocyte Sedimentation Rate (09/24/17 22:36) Morphine Injection (Morphine Injection (09/24/17 22:44) Ns (Ivpb) (Sodium Chloride 0.9%) (09/24/17 22:47) Vancomycin Injection (Vancomycin Injecti (09/24/17 22:47) Morphine Injection (Morphine Injection (09/24/17 22:47) Medications Given in ED Current Medications Medications Dose Ordered Sig/Amy Route Start Time Stop Time Status Last Admin Dose Admin Vancomycin HCl 1000 mg/Sodium Chloride 250 ml @ 250 mls/hr ONCE ONCE IV 09/24/17 22:45 09/25/17 00:30 DC 09/24/17 22:52 250 MLS/HR Vital Signs/I&O 09/24/17 09/25/17 09/25/17 09/25/17 21:35 00:00 00:00 00:15 Temp 97.8 100.6 100.6 Pulse 121 118 118 Resp 24 22 22 B/P (MAP) 141/110 (120) 126/79 126/79 (120) Pulse Ox 100 100 100 96 O2 Delivery Room Air Room Air Room Air 09/25/17 09/25/17 09/25/17 00:15 01:02 04:01 Temp 99.3 98.5 Pulse 117 111 82 Resp 18 B/P (MAP) 133/74 (93) 114/72 (86) Pulse Ox 96 95 O2 Delivery Room Air Room Air Capillary Refill : Progress Note : Progress Note NO DETERIORATION IN PT'S CONDITION DURING ER STAY SHIVERING STOPPED AT TIME OF ADMIT PT NOTED TO NOW HAVE TEMP OF 100.6 AT TIME OF ADMIT. Diagnostic Imaging Comments XRAYS RIGHT FOOT--NO ACUTE PROCESS, PRIOR AMPUTATION OF 3RD AND DISTAL ASPECT OF 3RD METATARSAL. PENDING RADIOLOGIST REVIEW. Reviewed: Reviewed by Me Departure Communication (Admissions) [id number]--SPOKE WITH DR. HOWARD, ACCEPTS PT FOR ADMIT. Impression Primary Impression: SEPSIS Additional Impressions: CHRONIC DIABETIC ULCER OF RIGHT FOOT Diabetes mellitus, insulin dependent (IDDM), uncontrolled Peripheral neuropathy Disposition: ADMITTED INPATIENT Condition: Stable Admissions Decision to Admit Reason: Admit from ER (General) Decision to Admit/Date: Sep 24, 2017 Time/Decision to Admit Time: 22:45 Departure-Patient Inst. Referrals: JEREMIE SCHWAB MD (PCP/Family) Primary Care Physician JOVANI MACDONALD DO Sep 24, 2017 22:27
[2017-09-24 22:36] LABS: SQUAMOUS EPITHELIAL CELL,UR 0-2 /HPF; WBC,URINE RARE /HPF
[2017-09-24] MEDS ORDERED: morphine INJ 10 MG/ML 1ML (SYR OR VIAL) IVP STA (22:44)
[2017-09-24] MEDS ORDERED: VANCOMYCIN INJECTION 1,000 MG in NS (IVPB) 250 ML IV ONE (22:45)
[2017-09-24] MEDS ORDERED: VANCOMYCIN 1000 MG/VIAL ONE (22:47)
[2017-09-24] MEDS ORDERED: NS (IVPB) 250 ML ONE (22:47)
[2017-09-24] MEDS ORDERED: morphine INJ 10 MG/ML 1ML (SYR OR VIAL) ONE (22:47)
--- OUTSIDE RECORDS SUMMARY | 2017-09-24 23:41 | XMS REPORT | Clinical Summary ---
Author Author [facility] Organization [facility] Address Unknown Phone Unavailable Care Team Providers Care Safety Professional Name Role Phone Rocael Heard MD Unavailable Manuel Sparrow MD PCP Source Comments Some departments are not documenting in the electronic medical record. If you do not see the information that you expected, contact Release of Information in the Health Information Management department at [phone] for further assistance in locating additional records.[facility] Allergies No Known Allergies Current Medications Prescription [...]
[2017-09-25 00:15] VITALS: BP 133/74
[2017-09-25] MEDS: NS IV 1000 ML 1,000 ML IV SCH ×3 (00:44→17:33)
[2017-09-25] MEDS ORDERED: morphine INJ 10 MG/ML 1ML (SYR OR VIAL) IV PRN (00:45)
[2017-09-25 04:01] VITALS: BP 114/72
[2017-09-25 05:48] LABS: BASOPHILS % (AUTO) 0 % (0-10); EOSINOPHILS # (AUTO) 0.1 10^3/uL (0.0-0.3); EOSINOPHILS % (AUTO) 1 % (0-10); HEMATOCRIT 39 % (40-54); HEMOGLOBIN 13.5 G/DL (13.3-17.7); LYMPHOCYTES % (AUTO) 7 % (12-44); MEAN CORPUSCULAR HEMOGLOBIN 31 PG (25-34); MEAN CORPUSCULAR HGB CONC 35 G/DL (32-36); MEAN CORPUSCULAR VOLUME 89 FL (80-99); MEAN PLATELET VOLUME 10.3 FL (7.4-10.4); MONOCYTES # (AUTO) 0.9 X 10^3 (0.0-1.0); MONOCYTES % (AUTO) 6 % (0-12); NEUTROPHILS # (AUTO) 11.7 X 10^3 (1.8-7.8); NEUTROPHILS % (AUTO) 86 % (42-75); PLATELET COUNT 241 10^3/uL (130-400); RED BLOOD COUNT 4.35 10^6/uL (4.35-5.85); RED CELL DISTRIBUTION WIDTH 13.1 % (10.0-14.5); WHITE BLOOD COUNT 13.6 10^3/uL (4.3-11.0)
[2017-09-25 06:09] LABS: ALANINE AMINOTRANSFERASE 21 U/L (0-55); ALBUMIN 3.6 GM/DL (3.2-4.5); ALKALINE PHOSPHATASE 83 U/L (40-136); BILIRUBIN,TOTAL 0.8 MG/DL (0.1-1.0); BUN/CREATININE RATIO 16; CALCIUM 8.7 MG/DL (8.5-10.1); CARBON DIOXIDE 23 MMOL/L (21-32); CHLORIDE 101 MMOL/L (98-107); CREATININE SERUM 0.92 MG/DL (0.60-1.30); GFR ESTIMATED > 60; GLUCOSE 367 MG/DL (70-105); POTASSIUM 3.9 MMOL/L (3.6-5.0); SODIUM 133 MMOL/L (135-145); TOTAL PROTEIN 6.1 GM/DL (6.4-8.2)
[2017-09-25] MEDS: inSUlin ASPART (NovoLOG) 1 UNIT/0.01 ML (CHARGE PER UNIT) SC SCH ×6 (06:24→20:37)
[2017-09-25 08:05] VITALS: BP 116/70
--- NOTE | 2017-09-25 08:12 | Diagnostic Imaging Report ---
Indication: Fever and chills. Wound on the bottom of the right foot. Three views of right foot shows changes of prior amputation involving the third digit which includes the distal portion of the third metatarsal. There is no acute fracture, dislocation or other acute bony abnormality. There are no changes to suggest osteomyelitis. Findings are similar to a prior study from 07/19/2017. Impression: Prior third digit amputation. No acute abnormality is seen. Dictated by: Dictated on workstation # [id number]
[2017-09-25] MEDS: VANCOMYCIN 1500 MG/NS 500 ML IVPB IV SCH ×4 (08:22→15:48)
[2017-09-25] MEDS: METOCLOPRAMIDE 5 MG (REGLAN) TAB PO SCH ×3 (10:45→20:37)
[2017-09-25] MEDS: ENOXAPARIN 40 MG/0.4 ML (LOVENOX) SYR SC SCH (10:47)
--- NOTE | 2017-09-25 11:14 | History & Physical-Hospitalist ---
History of Present Illness HPI/Chief Complaint Mr. Staton is a pleasant 42-year-old white male with a 17 year history of type II diabetes mellitus complicated by known peripheral neuropathy and chronic diabetic foot infection who an hour prior to presenting to the emergency room began shaking uncontrollably. He felt cold with this and reported temperature was low for him around 97. Earlier in the day he had some right thigh pain and had noticed a little bloody drainage from a chronic foot ulcer involving the right foot just proximal to the metatarsal head area. He's a patient of Dr. Rich in the wound center and is been going in for wound checks. He had been in for dressing change several days earlier and is scheduled to go back next Tuesday as I recall. 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 He apparently has a long history of poor diabetic control and is waiting on appointment with Dr. Kaiser an automobile bumper straightener who comes over from [place]. Normally fasting sugars are around the 200 range but this morning it was 300. He has regular eye care by Dr. Figueroa and reports no history of diabetic retinopathy. He is not aware of any history of nephropathy but he does have symptoms compatible with gastroparesis. He reports no history of MRSA and cultures are reviewed revealed multi-bacterial cultures from bone and previous foot ulcers with no history of MRSA or pseudomonas. Date Seen 09/25/17 Time Seen by Provider: 08:00 Attending Physician Andrea Darden MD PCP Telly Young MD Referring Physician Date of Admission Sep 24, 2017 at 22:45 Home Medications & Allergies Home Medications Reviewed patient Home Medication Reconciliation performed by pharmacy medication reconciliations hydroelectric plant technician and/or nursing. Patients Allergies have been reviewed. Allergies Allergies Coded Allergies No Known Drug Allergies (Pmyzbzcslk16/8/16) Past Ycsottc-Htuxwt-Knlnif Hx Past Med/Social Hx: Reviewed and Corrections made Patient Social History Alcohol Use: Rarely Uses Number of Drinks Today: 0 Recreational Drug Use: No Smoking Status: Never a Smoker Physical Abuse Screen: No Sexual Abuse: No Recent Foreign Travel: No Contact w/other who traveled: No Recent Hopitalizations: No Recent Infectious Disease Expo: No Immunizations Up To Date Tetanus Booster (TDap): Unknown Seasonal Allergies Seasonal Allergies: No Past Medical History Surgeries: Amputation, Orthopedic Neurological: Neuropathy Reproductive: No diabetic gastroparesis Musculoskeletal: Amputee Endocrine: Diabetes, Insulin dep History of Blood Disorders: No Family History Diabetes mellitus 19 FATHER 19 MOTHER G8 BROTHER FHx: supraventricular tachycardia 19 MOTHER Cancer, Diabetes Review of Systems Constitutional: weakness, weight loss (She has been attempting to lose weight and reports he is down for 4 pounds over the past month) Respiratory: no symptoms reported; No cough, No dyspnea on exertion, No hemoptysis, No orthopnea, No phlegm, No short of breath Cardiovascular: No chest pain, No edema, No Hx of Intervention, No palpitations , No syncope, No vascular heart diseas, No other Skin: see HPI Physical Exam Physical Exam Vital Signs Vital Signs - First Documented 09/24/17 21:35 Temp 97.8 Pulse 121 Resp 24 B/P (MAP) 141/110 (120) Pulse Ox 100 O2 Delivery Room Air Capillary Refill : Less Than 3 Seconds Height, Weight, BMI Height: 6'1.00" Weight: 216lbs. 1.6oz. 98.898985qt; 28.5 BMI Method:Stated General Appearance: No Apparent Distress, WD/WN HEENT: PERRL/EOMI, Pharynx Normal Neck: Full Range of Motion, Normal Inspection, Non Tender, Supple, Carotid Bruit Respiratory: Chest Non Tender, Lungs Clear, Normal Breath Sounds, No Accessory Muscle Use, No Respiratory Distress Cardiovascular: Regular Rate, Rhythm, No Edema, No Gallop, No JVD, No Murmur, Normal Peripheral Pulses Gastrointestinal: Normal Bowel Sounds, No Organomegaly, No Pulsatile Mass, Non Tender, Soft Extremity: Other (Or is red streaking to the level of the knee and the right lower extremity. There is a draining wound just proximal to the mid metatarsal area on the bottom of the foot with bandaging. Of the foot is warm and dorsalis pedis pulses intact capillary refill normal diminished sensation noted. There is surgical absence of the right third toe with evidence for some interosseous muscle atrophy of the feet. No evidence for ulceration left foot.) Results Results/Procedures Labs Laboratory Tests 09/24/17 21:46 09/25/17 05:25 Patient resulted labs reviewed. Assessment/Plan Admission Diagnosis 1. 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 This suggests this Cryptococcus again may be the major culprit for bacteremia with associated sepsis not severe. Continue Zosyn. Patient's by mouth intake is adequate with normal blood pressure and baseline heart rate around 90 per this patient's report. Will DC IV fluids after his current liter runs and. 2. Type II diabetes mellitus insulin requiring poorly controlled we'll add bolus insulin therapy. 3. History compatible with diabetic-related gastroparesis. Will increase Reglan to 5 mg half an hour before meals and at bedtime. Admission Status: Inpatient Order (span 2 midnights) Reason for Inpatient Admission: See admission diagnosis Clinical Quality Measures DVT/VTE Risk/Contraindication: Risk Factor Score Per Nursin RFS Level Per Nursing on Admit: 4+=Very High ANDREA DARDEN MD Sep 25, 2017 11:14
[2017-09-25 12:00] VITALS: BP 121/76
[2017-09-25 15:43] VITALS: BP 134/75
[2017-09-25] MEDS: ACETAMINOPHEN 500 MG TAB (TYLENOL) PO PRN (15:52)
[2017-09-25] MEDS: metFORMIN 500 MG (GLUCOPHAGE) TAB PO SCH (17:49)
[2017-09-26] VITALS (7 sets, daily range): BP systolic 127–142; BP diastolic 74–85
[2017-09-26] MEDS: metFORMIN 500 MG (GLUCOPHAGE) TAB PO SCH ×2 (06:57→17:36)
[2017-09-26] MEDS: METOCLOPRAMIDE 5 MG (REGLAN) TAB PO SCH ×4 (06:57→20:50)
[2017-09-26] MEDS: inSUlin ASPART (NovoLOG) 1 UNIT/0.01 ML (CHARGE PER UNIT) SC SCH ×7 (06:57→22:01)
[2017-09-26] MEDS ORDERED: TROUGH ORDER-PHARMACY XX NR (07:00)
[2017-09-26] MEDS: VANCOMYCIN 1500 MG/NS 500 ML IVPB IV SCH ×4 (08:04)
--- NOTE | 2017-09-26 08:35 | Progress Note (SOAP) ---
Subjective Subjective Date Seen by Provider: Sep 26, 2017 Time Seen by Provider: 07:30 42 yo M with right foot wound . He would like to go home. Feeling much better- no chills. Unhappy about his meals- as his diet is listed at 45CHO per meal and the cafeteria always tries to make him meet the CHO requirement. Review of Systems General: No Chills, No Night Sweats HEENT: No Head Aches, No Visual Changes Pulmonary: No Dyspnea, No Cough Cardiovascular: No: Chest Pain, Palpitations Gastrointestinal: No: Nausea, Vomiting, Abdominal Pain Genitourinary: No Dysuria Musculoskeletal: No: neck pain, shoulder pain Neurological: No: Weakness Objective Exam Vital Signs Vital Signs Date Time Temp Pulse Resp B/P (MAP) Pulse Ox O2 Delivery O2 Flow Rate FiO2 09/26/17 03:57 98.3 85 20 133/79 (97) 95 Room Air 09/26/17 00:00 99.1 85 20 127/76 (93) 95 Room Air 09/25/17 20:00 16 Room Air 09/25/17 15:43 99.0 96 16 134/75 (94) 95 Room Air 09/25/17 12:00 97.5 96 16 121/76 (91) 98 Room Air I & O 09/26/17 07:00 Intake Total 3572 ml Output Total 2550 ml Balance 1022 ml General Appearance: No Apparent Distress, WD/WN HEENT: PERRL/EOMI, Pharynx Normal Neck: Full Range of Motion, Normal Inspection, Non Tender, Supple, Carotid Bruit Respiratory: Chest Non Tender, Lungs Clear, Normal Breath Sounds, No Accessory Muscle Use, No Respiratory Distress Cardiovascular: Regular Rate, Rhythm, No Edema, No Gallop, No JVD, No Murmur, Normal Peripheral Pulses Gastrointestinal: Normal Bowel Sounds, No Organomegaly, No Pulsatile Mass, Non Tender, Soft Back: No CVA Tenderness, No Vertebral Tenderness Extremity: Other (Or is red streaking to the level of the knee and the right lower extremity. There is a draining wound just proximal to the mid metatarsal area on the bottom of the foot with bandaging. Of the foot is warm and dorsalis pedis pulses intact capillary refill normal diminished sensation noted. There is surgical absence of the right third toe with evidence for some interosseous muscle atrophy of the feet. No evidence for ulceration left foot.) Neurologic/Psychiatric: Alert, Oriented x3, Normal Mood/Affect, clinical dietician II-XII Norm as Tested, Sensory Deficit (SLIGHTLY DECREASED SENSATION TO FEET) Skin: Normal Color, Warm/Dry, Other (RIGHT FOOT WOUND NOTED ABOVE) Results Lab Laboratory Tests 09/25/17 10:16: Glucometer 220H 09/25/17 15:45: Glucometer 262H 09/25/17 20:16: Glucometer 223H 09/26/17 05:06: Glucometer 260H 09/26/17 06:09: Vancomycin Level Trough 13.8 Microbiology 09/24/17 Blood Culture - Preliminary, Resulted Gram Positive Cocci In Chains See Comments 09/24/17 Gram Stain - Final, Resulted 09/24/17 Wound Culture - Preliminary, Resulted Probable Coag Negative Staph Gram Positive Cocci In Chains Assessment/Plan Assessment/Plan Assessment and Plan Dispo: improving -discussion undertaken with patient about improving his diabetes as it has been uncontrolled for years- and in order for his wounds to heal- he must improve his diabetes. -awaiting cultures. planning discharge in next couple days. Patient has not shown up at [facility] the last 2 times for his follow up appts for diabetes and hospital discharge; if patient does not follow up this time will ask him to find another PCP. If blood cultures are staph he will need a PICC and IV abx for 2 weeks. (also will need repeat blood cultures prior to discharge.) Right now cultures look like strep. Problems: (1) Septicemia Assessment & Plan: blood cultures growing out strep/staph- awaiting final cultures. 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 Kaiser. (4) Ulcer of right foot due to type 2 diabetes mellitus Assessment & Plan: follows with Dr. Valdez. Evaluated 09/26/17 -follow up as outpatient. Clinical Quality Measures DVT/VTE Risk/Contraindication: Risk Factor Score Per Nursin RFS Level Per Nursing on Admit: 4+=Very High JEREMIE SCHWAB MD Sep 26, 2017 08:35
[2017-09-26] MEDS ORDERED: PIPERACILLIN/TAZO 4.5 GM/D5W 100 ML IV NR ×2 (09:15)
[2017-09-26] MEDS: ENOXAPARIN 40 MG/0.4 ML (LOVENOX) SYR SC SCH (10:44)
[2017-09-26] MEDS ORDERED: PIPERACILLIN/TAZO 4.5 GM/D5W 100 ML IV SCH ×2 (15:30)
--- NOTE | 2017-09-26 16:52 | Diagnostic Imaging Report ---
EXAM: MRI of right foot without contrast. DATE: September 26, 2017. INDICATION: 42-year-old male, ulcer of the right foot. Evaluation for osteomyelitis. History of sepsis. COMPARISON: September 24, 2017 right foot radiographs. TECHNIQUE: Multiple noncontrast MRI sequences of the right foot were obtained. FINDINGS: There is postoperative absence of the distal portions of the third metatarsal and absence of the third digit phalanges. There is a bipartite medial sesamoid. There is no acute fracture. There is no loss of normal T1 marrow signal or bone destruction to suggest osteomyelitis. There is no acute fracture. There is no evidence of stress reaction. The Lisfranc ligament proper is intact. The visualized tendons are intact. There is fluid-type signal along the volar skin surface at the level of the fourth metatarsal head which may relate to focal skin blister and/or ulcer. Recommend correlation with physical exam. There is nonspecific cutaneous edema at the level of the second through fifth digit phalanges remaining. There is no additional focal fluid collection. There is no joint effusion. There is a dorsally located ganglion cyst measuring 4 x 3 x 6 mm in size at the level of the proximal diaphysis of the fourth metatarsal. IMPRESSION: 1. No evidence of osteomyelitis. 2. Focal area of fluid signal along the volar skin surface at the level of the fourth metatarsal head which may relate to a focal skin blister and/or ulcer. Recommend correlation with physical exam. No otherwise noted focal fluid collection. 3. Intact tendons. Dictated by: Dictated on workstation # [id number]
--- NOTE | 2017-09-26 19:14 | Wound Care Assessment ---
Wound Care Assessment Date Seen by Provider: Sep 26, 2017 Time Seen by Provider: 18:45 Chief Complaint Infection R foot. HPI The patient is a 42 year old male with uncontrolled DMII, admitted 48 hours ago with cellulitis of the R foot, improving on IV antibiotics. The patient has developed a superficial abscess of the R 4th sub metatarsal head. This was unroofed at the bedside tonight. The base of the wound post-debridement appeared to be 100% viable. Silver alginate dressings are ordered. Total non- weight-bearing with crutches is ordered. Past Medical History: Admits Diabetes Type II Smoking Status: Never a Smoker Recreational Drug Use: No Alcohol Use: Rarely Uses Review of Systems General: Chills Pulmonary: No Dyspnea Cardiovascular: No: Chest Pain Exam Vital Signs Date Time Temp Pulse Resp B/P (MAP) Pulse Ox O2 Delivery O2 Flow Rate FiO2 09/26/17 16:52 97.3 82 16 137/84 (101) 97 Room Air Capillary Refill : Less Than 3 Seconds General Appearance: no apparent distress Respiratory: no respiratory distress Skin: other (R 4th MTH ulcer -- 0.2 x 0.2 x 0.2 cm, with fluctuance and purulent drainage. The paeriwound is macerated.) Results Laboratory Tests 09/25/17 20:16: Glucometer 223H 09/26/17 05:06: Glucometer 260H 09/26/17 06:09: Vancomycin Level Trough 13.8 09/26/17 10:46: Glucometer 236H 09/26/17 16:30: Glucometer 254H Microbiology 09/24/17 Blood Culture - Preliminary, Resulted Gram Positive Cocci In Chains See Comments 09/24/17 Gram Stain - Final, Resulted 09/24/17 Wound Culture - Preliminary, Resulted Probable Coag Negative Staph Gram Positive Cocci In Chains Microbiology 09/24/17 Blood Culture - Preliminary, Resulted Gram Positive Cocci In Chains See Comments 09/24/17 Blood Culture - Preliminary, Resulted Gram Positive Cocci In Chains See Comments 09/24/17 Gram Stain - Final, Resulted 09/24/17 Wound Culture - Preliminary, Resulted Probable Coag Negative Staph Gram Positive Cocci In Chains Assessment/Plan/Dx 1. Diabetic foot ulcer, R 4th sub met position, Espino Grade 2. (MRI shows fluid collection superficial to 4th MTH.) 2. Cellulitis R forefoot, improved with IV antibiotics. 3. Persistent hyperglycemia. The patient is told that unless he can get control of his blood glucose levels, it is unlikely that he will be able to heal his present wound, and likely that this will result in a major amputation. Plan: The superficial fluid collection was unroofed at the bedside and the resulting wound will be dressed with silver alginate. Upon discharge, the patient will need to be followed closely as an outpatient to observe for any further unexpected deterioration. ALANA VALDEZ MD Sep 26, 2017 19:14
[2017-09-26] MEDS: PIPERACILLIN SODIUM/TAZOBACTAM 4.5 GM in NS (IVPB) 100 ML IV SCH (22:53)
[2017-09-26] MEDS: ACETAMINOPHEN 500 MG TAB (TYLENOL) PO PRN (22:59)
[2017-09-27 03:46] VITALS: BP 129/66
[2017-09-27] MEDS: METOCLOPRAMIDE 5 MG (REGLAN) TAB PO SCH ×4 (06:01→22:31)
[2017-09-27] MEDS: inSUlin ASPART (NovoLOG) 1 UNIT/0.01 ML (CHARGE PER UNIT) SC SCH ×7 (06:01→22:05)
[2017-09-27] MEDS: metFORMIN 500 MG (GLUCOPHAGE) TAB PO SCH ×2 (06:01→17:06)
[2017-09-27] MEDS: PIPERACILLIN SODIUM/TAZOBACTAM 4.5 GM in NS (IVPB) 100 ML IV SCH ×3 (06:39→22:31)
[2017-09-27 07:48] LABS: BASOPHILS % (AUTO) 0 % (0-10); EOSINOPHILS # (AUTO) 0.2 10^3/uL (0.0-0.3); EOSINOPHILS % (AUTO) 2 % (0-10); HEMATOCRIT 38 % (40-54); HEMOGLOBIN 13.2 G/DL (13.3-17.7); LYMPHOCYTES % (AUTO) 14 % (12-44); MEAN CORPUSCULAR HEMOGLOBIN 31 PG (25-34); MEAN CORPUSCULAR HGB CONC 35 G/DL (32-36); MEAN CORPUSCULAR VOLUME 89 FL (80-99); MONOCYTES # (AUTO) 0.9 X 10^3 (0.0-1.0); MONOCYTES % (AUTO) 12 % (0-12); NEUTROPHILS # (AUTO) 5.4 X 10^3 (1.8-7.8); NEUTROPHILS % (AUTO) 72 % (42-75); PLATELET COUNT 239 10^3/uL (130-400); RED BLOOD COUNT 4.26 10^6/uL (4.35-5.85); WHITE BLOOD COUNT 7.5 10^3/uL (4.3-11.0)
[2017-09-27 07:57] VITALS: BP 105/52
[2017-09-27 08:17] LABS: ALBUMIN 3.5 GM/DL (3.2-4.5); BUN/CREATININE RATIO 13; CALCIUM 8.8 MG/DL (8.5-10.1); CARBON DIOXIDE 25 MMOL/L (21-32); CHLORIDE 106 MMOL/L (98-107); CREATININE SERUM 0.78 MG/DL (0.60-1.30); GFR ESTIMATED > 60; GLUCOSE 192 MG/DL (70-105); POTASSIUM 3.6 MMOL/L (3.6-5.0); SODIUM 139 MMOL/L (135-145)
--- NOTE | 2017-09-27 08:42 | Progress Note (SOAP) ---
Subjective Subjective Date Seen by Provider: Sep 27, 2017 Time Seen by Provider: 07:30 42 yo M with right foot wound . He would like to go home. Pt reports that he was lying on his side this AM and rolled over- his abdomen felt different- not sure if it was gas or nausea. He does not want to eat right now. No fevers. Unhappy about being in the hospital. Review of Systems General: No Chills, No Night Sweats HEENT: No Head Aches, No Visual Changes Pulmonary: No Dyspnea, No Cough Cardiovascular: No: Chest Pain, Palpitations Gastrointestinal: No: Nausea, Vomiting, Abdominal Pain Genitourinary: No Dysuria Musculoskeletal: No: neck pain, shoulder pain Neurological: No: Weakness Objective Exam Vital Signs Vital Signs Date Time Temp Pulse Resp B/P (MAP) Pulse Ox O2 Delivery O2 Flow Rate FiO2 09/27/17 07:57 98.1 86 16 105/52 (69) 96 Room Air 09/27/17 03:46 97.5 75 17 129/66 (87) 98 Room Air 09/26/17 23:45 97.8 85 18 133/79 (97) 97 Room Air 09/26/17 20:53 98.0 83 16 142/85 (104) 96 Room Air 09/26/17 16:52 97.3 82 16 137/84 (101) 97 Room Air 09/26/17 12:00 98.0 85 18 127/74 (91) 97 Room Air I & O 09/27/17 07:00 Intake Total 2200 ml Output Total 2250 ml Balance -50 ml General Appearance: No Apparent Distress, WD/WN HEENT: PERRL/EOMI Neck: Full Range of Motion, Normal Inspection, Non Tender, Supple Respiratory: Chest Non Tender, Lungs Clear, Normal Breath Sounds, No Accessory Muscle Use, No Respiratory Distress Cardiovascular: Regular Rate, Rhythm, No Edema, No Gallop, No JVD, No Murmur, Normal Peripheral Pulses Gastrointestinal: Normal Bowel Sounds, Non Tender, Soft Extremity: Other (Or is red streaking to the level of the knee and the right lower extremity. There is a draining wound just proximal to the mid metatarsal area on the bottom of the foot with bandaging. Of the foot is warm and dorsalis pedis pulses intact capillary refill normal diminished sensation noted. There is surgical absence of the right third toe with evidence for some interosseous muscle atrophy of the feet. No evidence for ulceration left foot.) Neurologic/Psychiatric: Alert, Oriented x3, Depressed Affect (flat affect), Sensory Deficit (SLIGHTLY DECREASED SENSATION TO FEET) Skin: Normal Color, Warm/Dry, Other (RIGHT FOOT WOUND NOTED ABOVE) Results Lab Laboratory Tests 09/26/17 10:46: Glucometer 236H 09/26/17 16:30: Glucometer 254H 09/26/17 21:12: Glucometer 138H 09/27/17 05:33: Glucometer 222H 09/27/17 07:42: White Blood Count 7.5, Red Blood Count 4.26L, Hemoglobin 13.2L, Hematocrit 38L, Mean Corpuscular Volume 89, Mean Corpuscular Hemoglobin 31, Mean Corpuscular Hemoglobin Concent 35, Red Cell Distribution Width 13.0, Platelet Count 239, Mean Platelet Volume 10.0, Neutrophils (%) (Auto) 72, Lymphocytes (%) (Auto) 14 , Monocytes (%) (Auto) 12, Eosinophils (%) (Auto) 2, Basophils (%) (Auto) 0, Neutrophils # (Auto) 5.4, Lymphocytes # (Auto) 1.0, Monocytes # (Auto) 0.9, Eosinophils # (Auto) 0.2, Basophils # (Auto) 0.0, Sodium Level 139, Potassium Level 3.6, Chloride Level 106, Carbon Dioxide Level 25, Anion Gap 8, Blood Urea Nitrogen 10, Creatinine 0.78, Estimat Glomerular Filtration Rate > 60, BUN/ Creatinine Ratio 13, Glucose Level 192H, Calcium Level 8.8, Phosphorus Level 3.0 , Albumin 3.5 Microbiology 09/24/17 Blood Culture - Preliminary, Resulted Gram Positive Cocci In Chains See Comments 09/24/17 Gram Stain - Final, Resulted 09/24/17 Wound Culture - Preliminary, Resulted Probable Coag Negative Staph Gram Positive Cocci In Chains Assessment/Plan Assessment/Plan Assessment and Plan Dispo: improving - afebrile since 09/25/17 midnight- leukocytosis resolved. will monitor today. -discussion undertaken with patient about improving his diabetes as it has been uncontrolled for years- and in order for his wounds to heal- he must improve his diabetes. -awaiting cultures. Patient has not shown up at [facility] the last 2 times for his follow up appts for diabetes and hospital discharge; if patient does not follow up this time will ask him to find another PCP. If blood cultures are staph he will need a PICC and IV abx for 2 weeks. (also will need repeat blood cultures prior to discharge.) Right now cultures look like strep. possible discharge to home today on po antibiotics- cefdinir for 2 weeks to cover foot wound and bacteremia Problems: (1) Septicemia Assessment & Plan: chills/rigors resolved with ivf and 24 hours of antibiotics. blood cultures growing out strep- awaiting final cultures. currently on zosyn -no longer has sepsis. (2) Diabetic infection of right foot Assessment & Plan: poor diabetes control- difficult to heal his ulcers (3) Type 2 diabetes mellitus with hyperglycemia Qualifiers: Qualified Codes: E11.65 - Type 2 diabetes mellitus with hyperglycemia; Z79.4 - snf (current) use of insulin Assessment & Plan: June 2017 Hga1c 13.[address] Kaiser. continue insulin and metformin (4) Ulcer of right foot due to type 2 diabetes mellitus Assessment & Plan: follows with Dr. Valdez. Evaluated 09/26/17 -follow up as outpatient. Clinical Quality Measures DVT/VTE Risk/Contraindication: Risk Factor Score Per Nursin RFS Level Per Nursing on Admit: 4+=Very High JEREMIE SCHWAB MD Sep 27, 2017 08:42
[2017-09-27] MEDS: ENOXAPARIN 40 MG/0.4 ML (LOVENOX) SYR SC SCH (09:55)
[2017-09-27 11:20] VITALS: BP 99/61
[2017-09-27 16:00] VITALS: BP 126/74
--- NOTE | 2017-09-27 17:43 | Wound Care Assessment ---
Wound Care Assessment Chief Complaint R plantar foot ulcer. HPI The patient is a 42 year old male with uncontrolled DMII, admitted 48 hours ago with cellulitis of the R foot, improving on IV antibiotics. The patient has developed a superficial abscess of the R 4th sub metatarsal head. This was unroofed at the bedside tonight. The base of the wound post-debridement appeared to be 100% viable. Silver alginate dressings are ordered. Total non- weight-bearing with crutches is ordered. Past Medical History: Admits Diabetes Type II Smoking Status: Never a Smoker Recreational Drug Use: No Alcohol Use: Rarely Uses Exam Vital Signs Date Time Temp Pulse Resp B/P (MAP) Pulse Ox O2 Delivery O2 Flow Rate FiO2 09/27/17 16:00 98.6 99 16 126/74 (91) 96 Room Air Capillary Refill : Less Than 3 Seconds Results Laboratory Tests 09/26/17 21:12: Glucometer 138H 09/27/17 05:33: Glucometer 222H 09/27/17 07:42: White Blood Count 7.5, Red Blood Count 4.26L, Hemoglobin 13.2L, Hematocrit 38L, Mean Corpuscular Volume 89, Mean Corpuscular Hemoglobin 31, Mean Corpuscular Hemoglobin Concent 35, Red Cell Distribution Width 13.0, Platelet Count 239, Mean Platelet Volume 10.0, Neutrophils (%) (Auto) 72, Lymphocytes (%) (Auto) 14 , Monocytes (%) (Auto) 12, Eosinophils (%) (Auto) 2, Basophils (%) (Auto) 0, Neutrophils # (Auto) 5.4, Lymphocytes # (Auto) 1.0, Monocytes # (Auto) 0.9, Eosinophils # (Auto) 0.2, Basophils # (Auto) 0.0, Sodium Level 139, Potassium Level 3.6, Chloride Level 106, Carbon Dioxide Level 25, Anion Gap 8, Blood Urea Nitrogen 10, Creatinine 0.78, Estimat Glomerular Filtration Rate > 60, BUN/ Creatinine Ratio 13, Glucose Level 192H, Calcium Level 8.8, Phosphorus Level 3.0 , Albumin 3.5 09/27/17 08:15: Glucometer 154H 09/27/17 10:59: Glucometer 219H 09/27/17 15:48: Glucometer 190H Microbiology 09/24/17 Blood Culture - Preliminary, Resulted Gram Positive Cocci In Chains See Comments 09/24/17 Gram Stain - Final, Resulted 09/24/17 Wound Culture - Preliminary, Resulted Staph, Coag Neg ([employer] HELPER) Streptococcus viridans Assessment/Plan/Dx 1. Diabetic foot ulcer, R 4th sub met position, Espino Grade 2. (MRI shows fluid collection superficial to 4th MTH.) 2. Cellulitis R forefoot, improved with IV antibiotics. 3. Persistent hyperglycemia. The patient is told that unless he can get control of his blood glucose levels, it is unlikely that he will be able to heal his present wound, and likely that this will result in a major amputation. Plan: The superficial fluid collection was unroofed at the bedside and the resulting wound will be dressed with silver alginate. Upon discharge, the patient will need to be followed closely as an outpatient to observe for any further unexpected deterioration. ALANA VALDEZ MD Sep 27, 2017 17:43
[2017-09-27] MEDS: ACETAMINOPHEN 500 MG TAB (TYLENOL) PO PRN (22:39)
[2017-09-28 00:16] VITALS: BP 122/71
[2017-09-28] MEDS: inSUlin ASPART (NovoLOG) 1 UNIT/0.01 ML (CHARGE PER UNIT) SC SCH ×4 (06:28→11:37)
[2017-09-28] MEDS: METOCLOPRAMIDE 5 MG (REGLAN) TAB PO SCH ×2 (06:30→11:17)
[2017-09-28] MEDS: metFORMIN 500 MG (GLUCOPHAGE) TAB PO SCH (06:30)
[2017-09-28] MEDS: PIPERACILLIN SODIUM/TAZOBACTAM 4.5 GM in NS (IVPB) 100 ML IV SCH (06:31)
[2017-09-28 07:53] LABS: BASOPHILS % (AUTO) 1 % (0-10); EOSINOPHILS # (AUTO) 0.2 10^3/uL (0.0-0.3); EOSINOPHILS % (AUTO) 4 % (0-10); HEMATOCRIT 40 % (40-54); LYMPHOCYTES # (AUTO) 1.4 X 10^3 (1.0-4.0); LYMPHOCYTES % (AUTO) 25 % (12-44); MEAN CORPUSCULAR HEMOGLOBIN 32 PG (25-34); MEAN CORPUSCULAR HGB CONC 35 G/DL (32-36); MEAN CORPUSCULAR VOLUME 90 FL (80-99); MEAN PLATELET VOLUME 10.4 FL (7.4-10.4); MONOCYTES # (AUTO) 0.6 X 10^3 (0.0-1.0); MONOCYTES % (AUTO) 10 % (0-12); NEUTROPHILS # (AUTO) 3.4 X 10^3 (1.8-7.8); NEUTROPHILS % (AUTO) 61 % (42-75); PLATELET COUNT 232 10^3/uL (130-400); RED BLOOD COUNT 4.44 10^6/uL (4.35-5.85); RED CELL DISTRIBUTION WIDTH 12.9 % (10.0-14.5); WHITE BLOOD COUNT 5.6 10^3/uL (4.3-11.0)
[2017-09-28 08:00] VITALS: BP 133/70
[2017-09-28 08:14] LABS: BUN/CREATININE RATIO 13; CALCIUM 9.6 MG/DL (8.5-10.1); CARBON DIOXIDE 26 MMOL/L (21-32); CHLORIDE 102 MMOL/L (98-107); CREATININE SERUM 0.82 MG/DL (0.60-1.30); GFR ESTIMATED > 60; GLUCOSE 186 MG/DL (70-105); POTASSIUM 3.7 MMOL/L (3.6-5.0); SODIUM 138 MMOL/L (135-145)
[2017-09-28] MEDS: ENOXAPARIN 40 MG/0.4 ML (LOVENOX) SYR SC SCH (11:17)
[2017-09-28] MEDS ORDERED: CEFD300C3 PO (11:58)
--- NOTE | 2017-09-28 12:00 | Discharge Inst-Simple/Standard ---
Discharge Inst-Standard Discharge Medications New, Converted or Re-Newed RX: Transmitted to Pharmacy Patient Instructions/Follow Up Plan of Care/Instructions/FU: Follow diabetic diet call Dr. Valdez office for follow up appt follow up at [facility] in 1-2 weeks complete cefdinir 1 tablet po BID x 12 days. Activity as Tolerated: No Discharge Diet: ADA Diet Return to The Hospital For: new concerns such as fever, chills Planned Outpatient Orders/Ref. Pneu Vac Indicated: Yes JEREMIE SCHWAB MD Sep 28, 2017 12:00
--- NOTE | 2017-09-28 12:01 | Discharge Summary ---
Diagnosis/Chief Complaint Date of Admission Sep 24, 2017 at 22:45 Date of Discharge Sep 28, 2017 Admission Diagnosis Admission Diagnosis diabetic foot infection with ascending lymphangitis. Type II diabetes mellitus diabetic-related gastroparesis. Discharge Diagnosis 1) Septicemia due to strep- resolved (2) Diabetic infection of right foot (3) Type 2 diabetes mellitus with hyperglycemia (4) Ulcer of right foot due to type 2 diabetes mellitus (5) diabetic related gastroparesis Reason Hospital Visit HPI/Chief Complaint Mr. Staton is a pleasant 42-year-old white male with a 17 year history of type II diabetes mellitus complicated by known peripheral neuropathy and chronic diabetic foot infection who an hour prior to presenting to the emergency room began shaking uncontrollably. He felt cold with this and reported temperature was low for him around 97. Earlier in the day he had some right thigh pain and had noticed a little bloody drainage from a chronic foot ulcer involving the right foot just proximal to the metatarsal head area. He's a patient of Dr. Rich in the wound center and is been going in for wound checks. He had been in for dressing change several days earlier and is scheduled to go back next Tuesday as I recall. 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 He apparently has a long history of poor diabetic control and is waiting on appointment with Dr. Kaiser an information manager who comes over from [place]. Normally fasting sugars are around the 200 range but this morning it was 300. He has regular eye care by Dr. Figueroa and reports no history of diabetic retinopathy. He is not aware of any history of nephropathy but he does have symptoms compatible with gastroparesis. He reports no history of MRSA and cultures are reviewed revealed multi-bacterial cultures from bone and previous foot ulcers with no history of MRSA or pseudomonas. Discharge Summary Hospital Course Hospital Course 42 yo M admitted for a diabetic foot infection found to have septicemia from positive blood cultures growing streptococcus. He was initially treated with vancomycin and switched to zosyn while awaiting cultures- Fevers/rigors resolved. Blood sugar remained elevated as he is a poorly controlled diabetic - he was started on meal time insulin for this admission. He was changed to cefdinir to complete a 14 day course of antibiotics for his foot infection and his septicemia. Dr. Valdez wound care addressed the wound with debridment and will follow up outpatient. Patient's diabetic wounds will not heal effectively due to his poor diabetes control. Imaging : MRI foot negative for osteomyelitis Referring to endocrinology- Patient does not attend follow up appointments at [facility]. Labs Procedures None. Consultations Courtney Discharge Physical Examination Allergies: Coded Allergies: No Known Drug Allergies (Unverified , 01/29/16) Vitals & I&Os Vital Signs Date Time Temp Pulse Resp B/P (MAP) Pulse Ox O2 Delivery O2 Flow Rate FiO2 09/28/17 12:55 96 20 133/70 97 Room Air 09/28/17 08:00 97.3 General Appearance: Alert, Oriented X3 HEENT: Atraumatic Respiratory: Clear to Auscultation Cardiovascular: Regular Rate Abdominal: Normal Bowel Sounds Psych/Mental Status: Mental Status NL (flat affect) Discharge Home Medications Reviewed and agree with Discharge Medication list on patient's Discharge Instruction sheet Condition at Discharge stable Instructions to Patient/Family Please see electronic discharge instructions given to patient. Clinical Quality Measures DVT/VTE Risk/Contraindication: Risk Factor Score Per Nursin RFS Level Per Nursing on Admit: 4+=Very High JEREMIE SCHWAB MD Sep 28, 2017 12:01
[2017-09-28 12:55] VITALS: BP 133/70
== END 2017-09-28 12:35 | disposition home or self-care (01) | DRG 872 ==
LOC: EDUNIT# 21:14 → ER 21:15 → 4TH 22:45
PROVIDERS: ADMIT Internal Medicine; ATTEND Internal Medicine
PROC: 0H9MXZZ Drainage of Right Foot Skin, External Approach (ICD-10-PCS; principal; 2017-09-26)
DX: A40.8 Other streptococcal sepsis (principal); L03.115 Cellulitis of right lower limb; E11.621 Type 2 diabetes mellitus with foot ulcer; L97.419 Non-pressure chronic ulcer of right heel and midfoot with unspecified severity; E11.43 Type 2 diabetes mellitus with diabetic autonomic (poly)neuropathy; E11.42 Type 2 diabetes mellitus with diabetic polyneuropathy; E11.65 Type 2 diabetes mellitus with hyperglycemia; I89.1 Lymphangitis; M79.651 Pain in right thigh; M62.571 Muscle wasting and atrophy, not elsewhere classified, right ankle and foot; Z79.4 Long term (current) use of insulin
CPT/HCPCS: 36415; 73630; 80048; 80053; 80069; 80202; 81000; 82962; 83605; 83735; 85007; 85025; 85027; 85610; 85652; 85730; 86141; 87040; 87070; 87077; 87205; 96374

== ENCOUNTER → 2017-09-30 | Outpatient (CLI) | payer OTHER ==
[~2017-09-30] MED LIST changes: +CEFD300C3 PO
== END ==
LOC: WOUNDCARE 08:20
PROVIDERS: ATTEND Surgery
DX: E11.621 Type 2 diabetes mellitus with foot ulcer (principal); E11.42 Type 2 diabetes mellitus with diabetic polyneuropathy; L97.512 Non-pressure chronic ulcer of other part of right foot with fat layer exposed; E11.65 Type 2 diabetes mellitus with hyperglycemia
CPT/HCPCS: 11042

== ENCOUNTER → 2017-10-07 | Outpatient (CLI) | payer OTHER | LOC: WOUNDCARE 08:17 | PROVIDERS: ATTEND Surgery | DX: E11.621 Type 2 diabetes mellitus with foot ulcer (principal); E11.42 Type 2 diabetes mellitus with diabetic polyneuropathy; L97.512 Non-pressure chronic ulcer of other part of right foot with fat layer exposed; E11.65 Type 2 diabetes mellitus with hyperglycemia | CPT/HCPCS: 11042 ==

== ENCOUNTER → 2017-10-21 | Outpatient (CLI) | payer OTHER ==
[~2017-10-21] MED LIST changes: +METF-397 PO; -METF500T5 PO
== END ==
LOC: WOUNDCARE 08:23
PROVIDERS: ATTEND Surgery
DX: E11.621 Type 2 diabetes mellitus with foot ulcer (principal); L97.512 Non-pressure chronic ulcer of other part of right foot with fat layer exposed; E11.42 Type 2 diabetes mellitus with diabetic polyneuropathy
CPT/HCPCS: 11042

== ENCOUNTER → 2017-11-04 | Outpatient (CLI) | payer OTHER | LOC: WOUNDCARE 08:21 | PROVIDERS: ATTEND Surgery | DX: E11.621 Type 2 diabetes mellitus with foot ulcer (principal); E11.42 Type 2 diabetes mellitus with diabetic polyneuropathy; L97.512 Non-pressure chronic ulcer of other part of right foot with fat layer exposed | CPT/HCPCS: 11042 ==

== ENCOUNTER → 2017-11-09 | Outpatient (CLI) | payer OTHER | LOC: WOUNDCARE 09:01 | PROVIDERS: ATTEND Surgery | DX: E11.621 Type 2 diabetes mellitus with foot ulcer (principal); L97.512 Non-pressure chronic ulcer of other part of right foot with fat layer exposed; E11.42 Type 2 diabetes mellitus with diabetic polyneuropathy | CPT/HCPCS: 11042 ==

== ENCOUNTER → 2017-11-11 | Outpatient (CLI) | payer OTHER | LOC: WOUNDCARE 08:25 | PROVIDERS: ATTEND Surgery | DX: E11.621 Type 2 diabetes mellitus with foot ulcer (principal); E11.42 Type 2 diabetes mellitus with diabetic polyneuropathy; L97.512 Non-pressure chronic ulcer of other part of right foot with fat layer exposed | CPT/HCPCS: 29445 ==

== ENCOUNTER → 2017-11-14 | Outpatient (CLI) | payer OTHER | LOC: WOUNDCARE 11:38 | PROVIDERS: ATTEND Surgery | DX: E11.621 Type 2 diabetes mellitus with foot ulcer (principal); L97.512 Non-pressure chronic ulcer of other part of right foot with fat layer exposed; E11.42 Type 2 diabetes mellitus with diabetic polyneuropathy | CPT/HCPCS: 29445 ==

== ENCOUNTER → 2017-11-18 | Outpatient (CLI) | payer OTHER | LOC: WOUNDCARE 08:20 | PROVIDERS: ATTEND Surgery | DX: E11.621 Type 2 diabetes mellitus with foot ulcer (principal); E11.42 Type 2 diabetes mellitus with diabetic polyneuropathy; L97.512 Non-pressure chronic ulcer of other part of right foot with fat layer exposed | CPT/HCPCS: 15275 ==

== ENCOUNTER → 2017-11-24 | Outpatient (CLI) | payer OTHER | LOC: LAB 19:03 | PROVIDERS: ATTEND Surgery | DX: E11.621 Type 2 diabetes mellitus with foot ulcer (principal); E11.42 Type 2 diabetes mellitus with diabetic polyneuropathy; L97.512 Non-pressure chronic ulcer of other part of right foot with fat layer exposed | CPT/HCPCS: 36415; 83036 ==

== ENCOUNTER → 2017-11-25 | Outpatient (CLI) | payer OTHER | LOC: WOUNDCARE 08:25 | PROVIDERS: ATTEND Nurse Practitioner | DX: E11.621 Type 2 diabetes mellitus with foot ulcer (principal); E11.42 Type 2 diabetes mellitus with diabetic polyneuropathy; L97.514 Non-pressure chronic ulcer of other part of right foot with necrosis of bone; Z98.890 Other specified postprocedural states; L97.512 Non-pressure chronic ulcer of other part of right foot with fat layer exposed | CPT/HCPCS: 11042; 87070; 87075; 87077; 87186; 87205 ==

== ENCOUNTER → 2017-11-25 | Outpatient (CLI) | payer OTHER ==
--- NOTE | 2017-11-25 14:25 | Diagnostic Imaging Report ---
INDICATION: Ulcer in the right foot. TIME OF EXAM: 9:54 AM Correlation is made with prior radiographs from 09/24/2017. FINDINGS: Postsurgical changes of amputation of the third toe and distal third metatarsal are again seen. Resection margin appears smooth. Remaining metatarsals and phalanges are unremarkable. No bony destructive changes are seen. No soft tissue gas is identified. Midfoot and hindfoot are unremarkable. IMPRESSION: Stable postsurgical changes. No acute feature is detected. Dictated by: Dictated on workstation # [id number]
== END ==
LOC: RAD 09:23
PROVIDERS: ATTEND Nurse Practitioner
DX: E11.621 Type 2 diabetes mellitus with foot ulcer (principal); E11.42 Type 2 diabetes mellitus with diabetic polyneuropathy; L97.514 Non-pressure chronic ulcer of other part of right foot with necrosis of bone; Z98.890 Other specified postprocedural states
CPT/HCPCS: 73630

== ENCOUNTER → 2017-11-30 | Outpatient (CLI) | payer OTHER | LOC: WOUNDCARE 14:29 | PROVIDERS: ATTEND Surgery | DX: E11.621 Type 2 diabetes mellitus with foot ulcer (principal); L97.514 Non-pressure chronic ulcer of other part of right foot with necrosis of bone; E11.42 Type 2 diabetes mellitus with diabetic polyneuropathy | CPT/HCPCS: 11042; 82962 ==

== ENCOUNTER → 2017-12-09 | Outpatient (CLI) | payer OTHER ==
[~2017-12-09] MED LIST changes: +BUSP5TAB59 PO; +CINN500C2 PO; +MINO100C2 PO
== END ==
LOC: WOUNDCARE 08:17
PROVIDERS: ATTEND Surgery
DX: E11.621 Type 2 diabetes mellitus with foot ulcer (principal); L97.514 Non-pressure chronic ulcer of other part of right foot with necrosis of bone; E11.42 Type 2 diabetes mellitus with diabetic polyneuropathy; Z98.890 Other specified postprocedural states
CPT/HCPCS: 11042

== ENCOUNTER 2017-12-12 21:10 | Observation (INO) | payer OTHER ==
[~2017-12-12] VITALS: Ht 185.4 cm; Wt 100.4 kg
[~2017-12-12 21:10] MED LIST changes: -BUSP5TAB59 PO; -CINN500C2 PO; -MINO100C2 PO
--- OUTSIDE RECORDS SUMMARY | 2017-12-12 21:17 | XMS REPORT | Clinical Summary ---
Author Author [facility] Organization [facility] Address Unknown Phone Unavailable Care Team Providers Care [employer] Associate Name Role Phone Rocael Heard MD Unavailable Manuel Sparrow MD PCP Source Comments Some departments are not documenting in the electronic medical record. If you do not see the information that you expected, contact Release of Information in the Health Information Management department at [phone] for further assistance in locating additional records.[facility] Allergies No Known Allergies Current Medications [...] SCREENING 1992 TETANUS VACCINE 1994 INFLUENZA VACCINE 09/21/2017 Results Not on filefrom Last 3 Months
--- NOTE | 2017-12-12 21:43 | ED General ---
General Stated Complaint: SHAKY/GROIN PAIN Source of Information: Patient Exam Limitations: No Limitations History of Present Illness Date Seen by Provider: Dec 12, 2017 Time Seen by Provider: 21:39 Initial Comments To ER with sudden onset of shaking and right groin pain that began this evening while he was eating dinner. He's had this happen 3 times previously, each time it has been sepsis. He has a wound to the plantar surface laterally of the right foot that he sees wound care for antisepsis has been attributed to that historically he states. He finished ampicillin yesterday and started minocycline today from Dr. Valdez for the wound on the right foot. He is diabetic. He denies any cough shortness of breath chest pain abdominal pain nausea vomiting diarrhea or dysuria. Timing/Duration: 1-2 Days Severity: Moderate Associated Systoms: Chest Pain Allergies and Home Medications Allergies Coded Allergies: No Known Drug Allergies (Unverified , 01/29/16) Home Medications Cinnamon Bark 500 Mg Capsule, 500 MG PO DAILY, (Reported) Insulin Detemir 100 Unit/1 Ml Insuln.pen, 20 UNIT SQ HS, (Reported) Insulin Detemir 100 Unit/1 Ml Insuln.pen, 10 UNIT SQ DAILY, (Reported) Metformin HCl 500 Mg Tablet, 500 MG PO BID WITH MEALS, (Reported) Metoclopramide HCl 5 Mg Tablet, 5 MG PO TID PRN for STOMACH UPSET, (Reported) Minocycline HCl 100 Mg Capsule, 100 MG PO BID, (Reported) 5 DAY [place]AR[place] PICKED UP 12-12-17 Patient Home Medication List Home Medication List Reviewed: Yes Review of Systems Review of Systems Constitutional: see HPI, chills, malaise, weakness EENTM: see HPI Respiratory: no symptoms reported Cardiovascular: no symptoms reported Genitourinary: no symptoms reported Musculoskeletal: no symptoms reported Skin: no symptoms reported Psychiatric/Neurological: No Symptoms Reported Hematologic/Lymphatic: No Symptoms Reported Immunological/Allergic: no symptoms reported Past Sfyznkf-Zupnvl-Oudmxz Hx Patient Social History Recent Foreign Travel: No Contact w/Someone Who Travel: No Recent Hopitalizations: No Immunizations Up To Date Tetanus Booster (TDap): Unknown Seasonal Allergies Seasonal Allergies: No Past Medical History Surgeries: Yes (R 3rd metatarsal amputation, abscess removed x2 right thigh) Amputation, Orthopedic Respiratory: No Cardiac: No Neurological: Yes Neuropathy Reproductive Disorders: No Genitourinary: No Gastrointestinal: No Musculoskeletal: Yes (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 Endocrine: Yes Diabetes, Insulin dep HEENT: No Cancer: No Psychosocial: No Integumentary: Yes (chronic wound bottom R foot; ABSCESSES) Blood Disorders: No Family Medical History Diabetes mellitus 19 FATHER 19 MOTHER G8 BROTHER FHx: supraventricular tachycardia 19 MOTHER Cancer, Diabetes Physical Exam Vital Signs Vital Signs - First Documented 12/12/17 21:16 Temp 99.1 Pulse 116 Resp 22 B/P (MAP) 121/74 (90) Pulse Ox 100 O2 Delivery Room Air Capillary Refill : Height, Weight, BMI Height: 6'1.00" Weight: 216lbs. 1.6oz. 98.650908ou; 28.5 BMI Method:Stated General Appearance: No Apparent Distress, WD/WN, Other (Rigors noted. ) Eyes: Bilateral Eye Normal Inspection, Bilateral Eye PERRL HEENT: PERRL/EOMI, TMs Normal Respiratory: Normal Breath Sounds, No Accessory Muscle Use, No Respiratory Distress Cardiovascular: Normal Peripheral Pulses, Tachycardia (112) Gastrointestinal: Normal Bowel Sounds, Non Tender, Soft Extremity: Normal Capillary Refill, Normal Inspection, Other (to the right groin where he complains of pain there are palpable mobile tender right inguinal lymph nodes. There is no lymphangitis or erythema seen. There is a wound in the plantar surface of the right foot without drainage at this time. There is no surrounding erythema.) Neurologic/Psychiatric: Alert, Oriented x3 Skin: Normal Color, Warm/Dry Focused Exam Lactate Level 12/12/17 21:35: Lactic Acid Level 1.48 Lactic Acid Level Progress/Results/Core Measures Suspected Sepsis SIRS Temperature: Pulse: Respiratory Rate: Laboratory Tests 12/12/17 21:35: White Blood Count 12.6H 12/13/17 05:16: White Blood Count 9.3 Blood Pressure / Mean: 12/12/17 21:35: Lactic Acid Level 1.48 Laboratory Tests 12/12/17 21:35: Creatinine 1.14, Platelet Count 267, Total Bilirubin 0.5 12/12/17 21:40: INR Comment 0.9 12/13/17 05:16: Creatinine 0.85, Platelet Count 217, Total Bilirubin 0.4 Results/Orders Lab Results Laboratory Tests Test 12/12/17 21:26 12/12/17 21:35 12/12/17 21:40 12/12/17 22:30 Range/Units Glucometer 258 H 70-110 MG/DL White Blood Count 12.6 H 4.3-11.0 10^3/uL Red Blood Count 4.48 4.35-5.85 10^6/uL Hemoglobin 13.8 13.3-17.7 G/DL Hematocrit 39 L 40-54 % Mean Corpuscular Volume 88 80-99 FL Mean Corpuscular Hemoglobin 31 25-34 PG Mean Corpuscular Hemoglobin Concent 35 32-36 G/DL Red Cell Distribution Width 12.8 10.0-14.5 % Platelet Count 267 130-400 10^3/uL Mean Platelet Volume 9.9 7.4-10.4 FL Neutrophils (%) (Auto) 77 H 42-75 % Lymphocytes (%) (Auto) 12 12-44 % Monocytes (%) (Auto) 9 0-12 % Eosinophils (%) (Auto) 1 0-10 % Basophils (%) (Auto) 0 0-10 % Neutrophils # (Auto) 9.7 H 1.8-7.8 X 10^3 Lymphocytes # (Auto) 1.5 1.0-4.0 X 10^3 Monocytes # (Auto) 1.2 H 0.0-1.0 X 10^3 Eosinophils # (Auto) 0.2 0.0-0.3 10^3/uL Basophils # (Auto) 0.0 0.0-0.1 10^3/uL Sodium Level 135 135-145 MMOL/L Potassium Level 4.3 3.6-5.0 MMOL/L Chloride Level 99 98-107 MMOL/L Carbon Dioxide Level 22 21-32 MMOL/L Anion Gap 14 5-14 MMOL/L Blood Urea Nitrogen 21 H 7-18 MG/DL Creatinine 1.14 0.60-1.30 MG/DL Estimat Glomerular Filtration Rate > 60 BUN/Creatinine Ratio 18 Glucose Level 266 H 70-105 MG/DL Lactic Acid Level 1.48 0.50-2.00 MMOL/L Calcium Level 10.0 8.5-10.1 MG/DL Corrected Calcium 9.8 8.5-10.1 MG/DL Total Bilirubin 0.5 0.1-1.0 MG/DL Aspartate Amino Transf (AST/SGOT) 11 5-34 U/L Alanine Aminotransferase (ALT/SGPT) 15 0-55 U/L Alkaline Phosphatase 81 40-136 U/L Total Protein 7.5 6.4-8.2 GM/DL Albumin 4.2 3.2-4.5 GM/DL Prothrombin Time 12.3 12.2-14.7 SEC INR Comment 0.9 0.8-1.4 Activated Partial Thromboplast Time 32 24-35 SEC Urine Color YELLOW Urine Clarity CLEAR Urine pH 5 5-9 Urine Specific [place] 1.010 L 1.016-1.022 Urine Protein 1+ H NEGATIVE Urine Glucose (UA) 4+ H NEGATIVE Urine Ketones NEGATIVE NEGATIVE Urine Nitrite NEGATIVE NEGATIVE Urine Bilirubin NEGATIVE NEGATIVE Urine Urobilinogen NORMAL NORMAL MG/DL Urine Leukocyte Esterase NEGATIVE NEGATIVE Urine RBC (Auto) 1+ H NEGATIVE Urine RBC NONE /HPF Urine WBC NONE /HPF Urine Crystals NONE /LPF Urine Bacteria NEGATIVE /HPF Urine Casts PRESENT /LPF Urine Hyaline Casts RARE /LPF Urine Mucus NEGATIVE /LPF Urine Culture Indicated NO Test 12/13/17 05:13 12/13/17 05:16 12/13/17 11:04 12/13/17 16:10 Range/Units Glucometer 218 H 194 H 125 H 70-110 MG/DL White Blood Count 9.3 4.3-11.0 10^3/uL Red Blood Count 4.15 L 4.35-5.85 10^6/uL Hemoglobin 12.6 L 13.3-17.7 G/DL Hematocrit 37 L 40-54 % Mean Corpuscular Volume 89 80-99 FL Mean Corpuscular Hemoglobin 30 25-34 PG Mean Corpuscular Hemoglobin Concent 34 32-36 G/DL Red Cell Distribution Width 12.6 10.0-14.5 % Platelet Count 217 130-400 10^3/uL Mean Platelet Volume 10.1 7.4-10.4 FL Neutrophils (%) (Auto) 69 42-75 % Lymphocytes (%) (Auto) 17 12-44 % Monocytes (%) (Auto) 12 0-12 % Eosinophils (%) (Auto) 2 0-10 % Basophils (%) (Auto) 0 0-10 % Neutrophils # (Auto) 6.4 1.8-7.8 X 10^3 Lymphocytes # (Auto) 1.5 1.0-4.0 X 10^3 Monocytes # (Auto) 1.1 H 0.0-1.0 X 10^3 Eosinophils # (Auto) 0.2 0.0-0.3 10^3/uL Basophils # (Auto) 0.0 0.0-0.1 10^3/uL Sodium Level 138 135-145 MMOL/L Potassium Level 3.7 3.6-5.0 MMOL/L Chloride Level 107 98-107 MMOL/L Carbon Dioxide Level 20 L 21-32 MMOL/L Anion Gap 11 5-14 MMOL/L Blood Urea Nitrogen 17 7-18 MG/DL Creatinine 0.85 0.60-1.30 MG/DL Estimat Glomerular Filtration Rate > 60 BUN/Creatinine Ratio 20 Glucose Level 224 H 70-105 MG/DL Calcium Level 9.3 8.5-10.1 MG/DL Corrected Calcium 9.6 8.5-10.1 MG/DL Total Bilirubin 0.4 0.1-1.0 MG/DL Aspartate Amino Transf (AST/SGOT) 10 5-34 U/L Alanine Aminotransferase (ALT/SGPT) 14 0-55 U/L Alkaline Phosphatase 77 40-136 U/L Total Protein 6.5 6.4-8.2 GM/DL Albumin 3.6 3.2-4.5 GM/DL Test 12/13/17 20:53 Range/Units Glucometer 237 H 70-110 MG/DL Micro Results Microbiology 12/12/17 Blood Culture - Preliminary, Resulted No growth 12/12/17 Blood Culture - Preliminary, Resulted No growth My Orders Orders - EDUARDO LONGO APRN Cbc With Automated Diff (12/12/17 21:27) Comprehensive Metabolic Panel (12/12/17 21:27) Ua Culture If Indicated (12/12/17 21:27) Iv Heplock-Insert (Order) (12/12/17 21:27) Lactic Acid Analyzer (12/12/17 21:36) Blood Culture (12/12/17 21:36) Ibuprofen Tablet (Motrin Tablet) (12/12/17 21:45) Ns Iv 1000 Ml (Sodium Chloride 0.9%) (12/12/17 21:45) Foot, Right, 3 View (12/12/17 21:36) Chest 1 View, Ap/Pa Only (12/12/17 21:36) Protime With Inr (12/12/17 21:56) Partial Thromboplastin Time (12/12/17 21:56) Piperacillin Sodium/Tazobactam (Zosyn Vi (12/12/17 22:45) Medications Given in ED Vital Signs/I&O 12/13/17 12/13/17 12:00 16:05 Temp 97.2 98.9 Pulse 81 92 Resp 18 22 B/P (MAP) 119/70 (86) 129/69 (89) Pulse Ox 99 97 O2 Delivery Room Air Room Air 12/13/17 00:00 Intake Total 1000 ml Balance 1000 ml Capillary Refill : Departure Communication (Admissions) Time/Spoke to Admitting Phy: 23:[address] Telly Schwab. We will admit, vancomycin and Zosyn empirically. 2218-Pt refused nasal influenza swab because "it hurts like hell". With HR 112, WBC 12.6, source of infection presumed to be foot given the tender right inguinal lymphadenopathy he does meet sepsis criteria. Impression Primary Impression: Ulcer of right foot due to type 2 diabetes mellitus Additional Impression: Sepsis Disposition: 09 ADMITTED INPATIENT Condition: Stable Admissions Decision to Admit Reason: Admit from ER (General) Decision to Admit/Date: Dec 12, 2017 Time/Decision to Admit Time: 22:50 Departure-Patient Inst. Referrals: TELLY SCHWAB MD (PCP/Family) Primary Care Physician EDUARDO LONGO APRN Dec 12, 2017 21:43
[2017-12-12 21:45] LABS: BASOPHILS % (AUTO) 0 % (0-10); EOSINOPHILS # (AUTO) 0.2 10^3/uL (0.0-0.3); EOSINOPHILS % (AUTO) 1 % (0-10); HEMATOCRIT 39 % (40-54); HEMOGLOBIN 13.8 G/DL (13.3-17.7); LYMPHOCYTES # (AUTO) 1.5 X 10^3 (1.0-4.0); LYMPHOCYTES % (AUTO) 12 % (12-44); MEAN CORPUSCULAR HEMOGLOBIN 31 PG (25-34); MEAN CORPUSCULAR HGB CONC 35 G/DL (32-36); MEAN CORPUSCULAR VOLUME 88 FL (80-99); MEAN PLATELET VOLUME 9.9 FL (7.4-10.4); MONOCYTES # (AUTO) 1.2 X 10^3 (0.0-1.0); MONOCYTES % (AUTO) 9 % (0-12); NEUTROPHILS # (AUTO) 9.7 X 10^3 (1.8-7.8); NEUTROPHILS % (AUTO) 77 % (42-75); PLATELET COUNT 267 10^3/uL (130-400); RED BLOOD COUNT 4.48 10^6/uL (4.35-5.85); RED CELL DISTRIBUTION WIDTH 12.8 % (10.0-14.5); WHITE BLOOD COUNT 12.6 10^3/uL (4.3-11.0)
[2017-12-12] MEDS ORDERED: IBUPROFEN 800 MG (MOTRIN) TAB PO ONE (21:45)
[2017-12-12] MEDS ORDERED: NS IV 1000 ML 1,000 ML IV SCH (21:45)
[2017-12-12 22:02] LABS: ALANINE AMINOTRANSFERASE 15 U/L (0-55); ALBUMIN 4.2 GM/DL (3.2-4.5); ALKALINE PHOSPHATASE 81 U/L (40-136); BILIRUBIN,TOTAL 0.5 MG/DL (0.1-1.0); BUN/CREATININE RATIO 18; CARBON DIOXIDE 22 MMOL/L (21-32); CHLORIDE 99 MMOL/L (98-107); CREATININE SERUM 1.14 MG/DL (0.60-1.30); GFR ESTIMATED > 60; GLUCOSE 266 MG/DL (70-105); POTASSIUM 4.3 MMOL/L (3.6-5.0); SODIUM 135 MMOL/L (135-145); TOTAL PROTEIN 7.5 GM/DL (6.4-8.2)
[2017-12-12 22:10] LABS: INR 0.9 (0.8-1.4); PROTHROMBIN TIME PATIENT 12.3 SEC (12.2-14.7)
[2017-12-12 22:44] LABS: BILIRUBIN,URINE NEGATIVE (NEGATIVE); CLARITY,URINE CLEAR; COLOR,URINE YELLOW; GLUCOSE, URINE (UA) 4+ (NEGATIVE); KETONES,URINE NEGATIVE (NEGATIVE); LEUKOCYTE ESTERASE ,URINE NEGATIVE (NEGATIVE); NITRITE,URINE NEGATIVE (NEGATIVE); PH,URINE 5 (5-9); PROTEIN,URINE 1+ (NEGATIVE); UROBILINOGEN,URINE NORMAL (NORMAL)
[2017-12-12] MEDS ORDERED: PIPERACILLIN SODIUM/TAZOBACTAM 4.5 GM in NS (IVPB) 100 ML IV ONE (22:45)
--- NOTE | 2017-12-12 22:46 | Diagnostic Imaging Report ---
INDICATION: Shaky, fever. TECHNIQUE: Single view chest 9:55 PM. CORRELATION STUDY: 06/06/2017 FINDINGS: Limited depth of inspiration. This does result in some crowding of the lung bases. No infiltrates. Azygos lobe, developmental again demonstrated. Heart size, mediastinum and vascularity are stable. IMPRESSION: 1. Generally stable chest demonstrates no acute abnormalities. Dictated by: Dictated on workstation # [id number]
[2017-12-12 22:48] LABS: BACTERIA,URINE NEGATIVE /HPF
[2017-12-12 22:49] LABS: HYALINE CASTS, URINE RARE /LPF
--- NOTE | 2017-12-12 22:57 | Diagnostic Imaging Report ---
INDICATION: Foot pain. TECHNIQUE: 3 views of the right foot CORRELATION STUDY: 11/25/2017. FINDINGS: Resection of the third toe and distal third metatarsal again demonstrated. Resection margins appear generally stable. Remaining osseous structures are unchanged. No findings to suggest acute bony abnormality. Degenerative changes about the MTP joint of the great toe. No abnormal soft tissue gas collection. IMPRESSION: 1. Stable appearance about the right foot. Surgical changes of the third digit. Negative for acute bony abnormality. Dictated by: Dictated on workstation # [id number]
--- OUTSIDE RECORDS SUMMARY | 2017-12-12 23:25 | XMS REPORT | Clinical Summary ---
Author Author [facility] Organization [facility] Address Unknown Phone Unavailable Care Team Providers Care Launch Steward Name Role Phone Rocael Heard MD Unavailable Manuel Sparrow MD PCP Source Comments Some departments are not documenting in the electronic medical record. If you do not see the information that you expected, contact Release of Information in the Health Information Management department at [phone] for further assistance in locating additional records.[facility] Allergies No Known Allergies Current Medications [...]
[2017-12-13] VITALS: BP 129/79
[2017-12-13] MEDS ORDERED: VANCOMYCIN 1 GM/NS 250 ML IVPB IV SCH ×2 (00:15)
[2017-12-13] MEDS ORDERED: ONDANSETRON 4 MG/2 ML (SDV) Z0FRAN IV PRN (00:15)
[2017-12-13] MEDS ORDERED: ACETAMINOPHEN 325 MG TABLET PO PRN (00:15)
[2017-12-13] MEDS ORDERED: NS IV 1000 ML 1,000 ML IV SCH (00:15)
[2017-12-13 04:00] VITALS: BP 104/62
[2017-12-13] MEDS: PIPERACILLIN/TAZO 4.5 GM/NS 100 ML IV SCH ×6 (04:29→20:31)
[2017-12-13 05:26] LABS: BASOPHILS % (AUTO) 0 % (0-10); EOSINOPHILS # (AUTO) 0.2 10^3/uL (0.0-0.3); EOSINOPHILS % (AUTO) 2 % (0-10); HEMATOCRIT 37 % (40-54); HEMOGLOBIN 12.6 G/DL (13.3-17.7); LYMPHOCYTES # (AUTO) 1.5 X 10^3 (1.0-4.0); LYMPHOCYTES % (AUTO) 17 % (12-44); MEAN CORPUSCULAR HEMOGLOBIN 30 PG (25-34); MEAN CORPUSCULAR HGB CONC 34 G/DL (32-36); MEAN CORPUSCULAR VOLUME 89 FL (80-99); MEAN PLATELET VOLUME 10.1 FL (7.4-10.4); MONOCYTES # (AUTO) 1.1 X 10^3 (0.0-1.0); MONOCYTES % (AUTO) 12 % (0-12); NEUTROPHILS # (AUTO) 6.4 X 10^3 (1.8-7.8); NEUTROPHILS % (AUTO) 69 % (42-75); PLATELET COUNT 217 10^3/uL (130-400); RED BLOOD COUNT 4.15 10^6/uL (4.35-5.85); RED CELL DISTRIBUTION WIDTH 12.6 % (10.0-14.5); WHITE BLOOD COUNT 9.3 10^3/uL (4.3-11.0)
[2017-12-13 05:48] LABS: ALANINE AMINOTRANSFERASE 14 U/L (0-55); ALBUMIN 3.6 GM/DL (3.2-4.5); ALKALINE PHOSPHATASE 77 U/L (40-136); BILIRUBIN,TOTAL 0.4 MG/DL (0.1-1.0); BUN/CREATININE RATIO 20; CALCIUM 9.3 MG/DL (8.5-10.1); CARBON DIOXIDE 20 MMOL/L (21-32); CHLORIDE 107 MMOL/L (98-107); CREATININE SERUM 0.85 MG/DL (0.60-1.30); GFR ESTIMATED > 60; GLUCOSE 224 MG/DL (70-105); POTASSIUM 3.7 MMOL/L (3.6-5.0); SODIUM 138 MMOL/L (135-145); TOTAL PROTEIN 6.5 GM/DL (6.4-8.2)
[2017-12-13] MEDS: inSUlin ASPART (NovoLOG) 1 UNIT/0.01 ML (CHARGE PER UNIT) SC SCH ×4 (06:29→21:07)
[2017-12-13] MEDS ORDERED: FLU QUADRIvalent (5+ YOA) 2018-2019 (AFLURIA) 0.5 ML IM ONE (07:00)
[2017-12-13 08:00] VITALS: BP 109/67
[2017-12-13] MEDS: VANCOMYCIN 1500 MG/NS 500 ML IVPB IV SCH ×4 (08:41→16:36)
--- NOTE | 2017-12-13 08:46 | History & Physical ---
History of Present Illness History of Present Illness Reason for visit/HPI 42-year-old male admitted for right foot diabetic ulcer with suspected infection. Patient reports he was eating supper last night and developed rigors chills tachycardia similar to his presentation in September 2017 that resulted in sepsis. Patient presented to the ER in which he received IV fluids , and was started on Zosyn and vancomycin. His white blood cells were elevated. He was tachycardic and had a temperature of 99F. He is following with Dr. Valdez wound care and patient reports he was seen on and was suppose to start minocycline but he did not start taking it until 12/12/17. His diabetes is not under control as his last hga1c was 12 on November 30 compared to 13 in June 2017. No overnight events. Patient's white blood cells were back down, pulse is in the 70-90 range and he was afebrile overnight. Of note patient has a follow-up appointment with Dr. Kaiser of endocrinology for diabetes on January 10. Patient has not followed up at [facility] for his previous 2 admissions. This was discussed with patient that he needs to keep his next follow-up appointment after this admission for continuity of care. Date of Admission Dec 12, 2017 at 23:22 Date Seen by a Provider: Dec 13, 2017 Time Seen by a Provider: 08:00 I consulted on this patient on 12/13/17 08:38 Attending Physician Telly Schwab MD Admitting Physician Telly Schwab MD Consult Allergies and Home Medications Allergies Coded Allergies: No Known Drug Allergies (Unverified , 01/29/16) Home Medications Cinnamon Bark 500 Mg Capsule, 500 MG PO DAILY, (Reported) Insulin Detemir 100 Unit/1 Ml Insuln.pen, 20 UNIT SQ HS, (Reported) Insulin Detemir 100 Unit/1 Ml Insuln.pen, 10 UNIT SQ DAILY, (Reported) Metformin HCl 500 Mg Tablet, 500 MG PO BID WITH MEALS, (Reported) Metoclopramide HCl 5 Mg Tablet, 5 MG PO TID PRN for STOMACH UPSET, (Reported) Minocycline HCl 100 Mg Capsule, 100 MG PO BID, (Reported) 5 DAY [place] PICKED UP 12-12-17 Patient Home Medication List Home Medication List Reviewed: Yes Past Kicdnjv-Pwroun-Qhnmxd Hx Patient Social History Alcohol Use: Denies Use Recreational Drug Use: No Smoking Status: Never a Smoker 2nd Hand Smoke Exposure: No Physical Abuse Screen: No Sexual Abuse: No Recent Foreign Travel: No Contact w/other who traveled: No Recent Hopitalizations: No Recent Infectious Disease Expo: No Immunizations Up To Date Tetanus Booster (TDap): Unknown Seasonal Allergies Seasonal Allergies: No Surgeries Yes (R 3rd metatarsal amputation, abscess removed x2 right thigh) Amputation, Orthopedic Respiratory No Cardiovascular No Neurological Yes Neuropathy Reproductive System Hx Reproductive Disorders: No Genitourinary No Gastrointestinal No Musculoskeletal Yes (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 Endocrine History of Endocrine Disorders: Yes Endocrine Disorders: Diabetes, Insulin dep HEENT History of HEENT Disorders: No Cancer No Psychosocial History of Psychiatric Problem: No Integumentary History of Skin or Integumenta: Yes (chronic wound bottom R foot; ABSCESSES) Blood Transfusions History of Blood Disorders: No Family Medical History Significant Family History: Cancer, Diabetes Family Hx: Diabetes mellitus 19 FATHER 19 MOTHER G8 BROTHER FHx: supraventricular tachycardia 19 MOTHER Physical Exam Vital Signs Vital Signs - First Documented 12/12/17 21:16 Temp 99.1 Pulse 116 Resp 22 B/P (MAP) 121/74 (90) Pulse Ox 100 O2 Delivery Room Air Capillary Refill : Less Than 3 Seconds Height, Weight, BMI Height: 6'1.00" Weight: 221lbs. 6.4oz. 100.627984mi; 29.2 BMI Method:Stated General Appearance: No Apparent Distress HEENT: PERRL/EOMI Neck: Normal Inspection, Non Tender, Supple Respiratory: Chest Non Tender, Lungs Clear, Normal Breath Sounds, No Accessory Muscle Use, No Respiratory Distress Cardiovascular: Regular Rate, Rhythm Gastrointestinal: Normal Bowel Sounds, Soft Rectal: Deferred Back: Normal Inspection, No CVA Tenderness Neurologic/Psychiatric: Alert, Oriented x3, Depressed Affect Skin: Warm/Dry, Other (right foot- plantar aspect diabetic foot wound) Assessment/Plan Assessment/Plan Admission Dx right foot- diabetic foot ulcer infection Admission Status: Observation Reason for Inpatient Admission: given presentation last night of rigors, right groin pain, and right foot ulcer with history of infection/sepsis in September. Decision to admit for overnight observation was necessary as patient could decompensate fast. Assessment and Plan Diabetic infection of right foot Assessment & Plan: poor diabetes control- difficult to heal his ulcers on zosyn, vancomycin Type 2 diabetes mellitus with hyperglycemia Qualifiers: Qualified Codes: E11.65 - Type 2 diabetes mellitus with hyperglycemia; Z79.4 - senior care (current) use of insulin Assessment & Plan: June 2017 Hga1c 13.[address] Kaiser. continue insulin and metformin Ulcer of right foot due to type 2 diabetes mellitus Assessment & Plan: follows with Dr. Valdez. last seen 12/09/17 continue on knee scooter -follow up as outpatient. dispo: WBC in normal range, resolution of tachycardia, no fevers discontinued tele, discontinue IVF Clinical Quality Measures DVT/VTE Risk/Contraindication: Risk Factor Score Per Nursin RFS Level Per Nursing on Admit: 4+=Very High TELLY SCHWAB MD Dec 13, 2017 08:46
[2017-12-13] MEDS ORDERED: INSU100I29 SQ ×2 (09:48→09:49)
[2017-12-13] MEDS ORDERED: CINN500C2 PO (09:49)
[2017-12-13] MEDS ORDERED: MINO100C2 PO (09:58)
[2017-12-13 12:00] VITALS: BP 119/70
--- NOTE | 2017-12-13 13:48 | Wound Care Assessment ---
Wound Care Assessment Date Seen by Provider: Dec 13, 2017 Time Seen by Provider: 13:46 Chief Complaint R 3rd metatarsal head ulcer. HPI The patient is a 42 year old male diabetic with deep space infection of the r forefoot, associated with a Espino Grade 3 3rd MTH ulcer, previously noted to have exposed bone. Past Medical History: Admits Diabetes Type II Smoking Status: Never a Smoker Recreational Drug Use: No Alcohol Use: Denies Use Exam Vital Signs Date Time Temp Pulse Resp B/P (MAP) Pulse Ox O2 Delivery O2 Flow Rate FiO2 12/13/17 08:00 97.3 86 18 109/67 (81) 91 Room Air Capillary Refill : Less Than 3 Seconds Results Laboratory Tests 12/12/17 21:26: Glucometer 258H 12/12/17 21:35: White Blood Count 12.6H, Red Blood Count 4.48, Hemoglobin 13.8, Hematocrit 39L, Mean Corpuscular Volume 88, Mean Corpuscular Hemoglobin 31, Mean Corpuscular Hemoglobin Concent 35, Red Cell Distribution Width 12.8, Platelet Count 267, Mean Platelet Volume 9.9, Neutrophils (%) (Auto) 77H, Lymphocytes (%) (Auto) 12 , Monocytes (%) (Auto) 9, Eosinophils (%) (Auto) 1, Basophils (%) (Auto) 0, Neutrophils # (Auto) 9.7H, Lymphocytes # (Auto) 1.5, Monocytes # (Auto) 1.2H, Eosinophils # (Auto) 0.2, Basophils # (Auto) 0.0, Sodium Level 135, Potassium Level 4.3, Chloride Level 99, Carbon Dioxide Level 22, Anion Gap 14, Blood Urea Nitrogen 21H, Creatinine 1.14, Estimat Glomerular Filtration Rate > 60, BUN/ Creatinine Ratio 18, Glucose Level 266H, Lactic Acid Level 1.48, Calcium Level 10.0, Corrected Calcium 9.8, Total Bilirubin 0.5, Aspartate Amino Transf (AST/ SGOT) 11, Alanine Aminotransferase (ALT/SGPT) 15, Alkaline Phosphatase 81, Total Protein 7.5, Albumin 4.2 12/12/17 21:40: Prothrombin Time 12.3, INR Comment 0.9, Activated Partial Thromboplast Time 32 12/12/17 22:30: Urine Color YELLOW, Urine Clarity CLEAR, Urine pH 5, Urine Specific [place] 1.010L, Urine Protein 1+H, Urine Glucose (UA) 4+H, Urine Ketones NEGATIVE, Urine Nitrite NEGATIVE, Urine Bilirubin NEGATIVE, Urine Urobilinogen NORMAL, Urine Leukocyte Esterase NEGATIVE, Urine RBC (Auto) 1+H, Urine RBC NONE, Urine WBC NONE, Urine Crystals NONE, Urine Bacteria NEGATIVE, Urine Casts PRESENT, Urine Hyaline Casts RARE, Urine Mucus NEGATIVE, Urine Culture Indicated NO 12/13/17 05:13: Glucometer 218H 12/13/17 05:16: White Blood Count 9.3, Red Blood Count 4.15L, Hemoglobin 12.6L, Hematocrit 37L, Mean Corpuscular Volume 89, Mean Corpuscular Hemoglobin 30, Mean Corpuscular Hemoglobin Concent 34, Red Cell Distribution Width 12.6, Platelet Count 217, Mean Platelet Volume 10.1, Neutrophils (%) (Auto) 69, Lymphocytes (%) (Auto) 17 , Monocytes (%) (Auto) 12, Eosinophils (%) (Auto) 2, Basophils (%) (Auto) 0, Neutrophils # (Auto) 6.4, Lymphocytes # (Auto) 1.5, Monocytes # (Auto) 1.1H, Eosinophils # (Auto) 0.2, Basophils # (Auto) 0.0, Sodium Level 138, Potassium Level 3.7, Chloride Level 107, Carbon Dioxide Level 20L, Anion Gap 11, Blood Urea Nitrogen 17, Creatinine 0.85, Estimat Glomerular Filtration Rate > 60, BUN/ Creatinine Ratio 20, Glucose Level 224H, Calcium Level 9.3, Corrected Calcium 9.6, Total Bilirubin 0.4, Aspartate Amino Transf (AST/SGOT) 10, Alanine Aminotransferase (ALT/SGPT) 14, Alkaline Phosphatase 77, Total Protein 6.5, Albumin 3.6 12/13/17 11:04: Glucometer 194H ALANA VALDEZ MD Dec 13, 2017 13:48
[2017-12-13] MEDS: DAKIN'S 1/4 STRENGTH (0.125%) 473 ML BTL TOP SCH ×2 (14:26→20:31)
--- NOTE | 2017-12-13 14:52 | Occ Therapy Progress Note ---
Therapy Progress Note OT order received, chart reviewed. Spoke with pt. regarding OT purpose. Pt. states that he does not need assistance at this time. Waiting on Dr. Valdez for wound care and dressing change. States that this is his only concern at this time. No questions or concerns for occupational therapist at this time. States that he has been managing with his right foot in this manner for some time. Pt. has knee scooter. Declines out of bed activity or ADL training. 1, visit [id number] No charge No OT indicated at this time. Discharge GEORGE GIPSON OT Dec 13, 2017 14:52
[2017-12-13 16:05] VITALS: BP 129/69
[2017-12-13] MEDS ORDERED: METOCLOPRAMIDE HCL 5 MG PO PRN (17:45)
[2017-12-13] MEDS ORDERED: NON-FORMULARY MEDICATION 1 EA EA (Metformin HCl 500 MG) PO SCH (17:45)
[2017-12-13] MEDS ORDERED: METOCLOPRAMIDE 5 MG (REGLAN) TAB PO PRN (18:00)
[2017-12-13 19:25] VITALS: BP 167/78
[2017-12-13] MEDS ORDERED: NON-FORMULARY MEDICATION 1 EA EA (Insulin Detemir (Levemir Flextouch) 20 UNIT) SQ SCH (21:00)
[2017-12-13] MEDS ORDERED: inSUlin DETERMIR 1 UNIT/0.01 ML (LEVEMIR) CHARGE PER UNIT SQ SCH (21:00)
[2017-12-13] MEDS ORDERED: hydrALAZINE (APRESOLINE) 25 MG TAB ONE (21:04)
[2017-12-13] MEDS ORDERED: hydrOXYzine (VISTARIL) 25 MG CAP PO PRN (21:45)
[2017-12-13] MEDS ORDERED: hydrALAZINE (APRESOLINE) 25 MG TAB PO SCH (22:00)
[2017-12-13] MEDS ORDERED: hydrALAZINE (APRESOLINE) 25 MG TAB PO PRN (22:00)
[2017-12-14 00:08] VITALS: BP 110/60
[2017-12-14] MEDS: VANCOMYCIN 1500 MG/NS 500 ML IVPB IV SCH ×4 (00:18→08:47)
[2017-12-14 04:09] VITALS: BP 114/68
[2017-12-14] MEDS: PIPERACILLIN/TAZO 4.5 GM/NS 100 ML IV SCH ×2 (05:14)
[2017-12-14] MEDS: inSUlin ASPART (NovoLOG) 1 UNIT/0.01 ML (CHARGE PER UNIT) SC SCH ×2 (06:02→11:30)
[2017-12-14] MEDS ORDERED: NON-FORMULARY MEDICATION 1 EA EA (Metformin HCl 500 MG) PO SCH (07:00)
[2017-12-14] MEDS ORDERED: metFORMIN 500 MG (GLUCOPHAGE) TAB PO SCH (07:00)
[2017-12-14] MEDS ORDERED: TROUGH ORDER-PHARMACY XX NR (07:00)
[2017-12-14 08:19] VITALS: BP 170/83
--- NOTE | 2017-12-14 08:21 | Wound Care Assessment ---
Wound Care Assessment Date Seen by Provider: Dec 14, 2017 Time Seen by Provider: 07:15 Chief Complaint R 4th metatarsal head ulcer. HPI 42 year old male diabetic with deep space infection of the R forefoot, associated with a Espino Grade 3 3rd MTH ulcer, previously noted to have exposed bone. the erythema of the distal dorsum of the foot is resolved. The wound is clean with no surrounding erythema. Patient is stable for discharge in my opinion. Recommend Minocycline which he already has a prescription for. Past Medical History: Admits Diabetes Type II Smoking Status: Never a Smoker Recreational Drug Use: No Alcohol Use: Denies Use Review of Systems Pulmonary: No Dyspnea Cardiovascular: No: Chest Pain Musculoskeletal: No: leg pain, foot pain Exam Vital Signs Date Time Temp Pulse Resp B/P (MAP) Pulse Ox O2 Delivery O2 Flow Rate FiO2 12/14/17 04:09 98.7 87 18 114/68 (83) 98 Room Air Capillary Refill : Less Than 3 Seconds General Appearance: no apparent distress Extremities: other (R 4th MTH ulcer -- 1.0 x 1.1 x 0.8 cm, base 50% slough, 50% granulation, mod. s.s. drainage.) Results Laboratory Tests 12/13/17 11:04: Glucometer 194H 12/13/17 16:10: Glucometer 125H 12/13/17 20:53: Glucometer 237H 12/14/17 05:29: Glucometer 135H 12/14/17 07:20: Vancomycin Level Trough 14.5 Microbiology 12/12/17 Blood Culture - Preliminary, Resulted No growth Microbiology 12/12/17 Blood Culture - Preliminary, Resulted No growth 12/12/17 Blood Culture - Preliminary, Resulted No growth Assessment/Plan/Dx 1. R 4th submetatarsal ulcer, Espino Grade 3. 2. Deep space infection, R foot, associated with # 1, improved. 3. Poor control of blood glucose levels historically. Plan: Options of ray or TMA have been discussed. He has been told that if he is not going to control blood glucose, take prescribed antibiotic, follow-up as recommended, there is little likelihood that his present wound will heal. In that case, he might be better off proceeding with an amputation. he desires to pursue conservative management. ALANA VALDEZ MD Dec 14, 2017 08:21
[2017-12-14 08:31] VITALS: BP 100/60
[2017-12-14] MEDS: DAKIN'S 1/4 STRENGTH (0.125%) 473 ML BTL TOP SCH (08:45)
[2017-12-14] MEDS ORDERED: NON-FORMULARY MEDICATION 1 EA EA (Insulin Detemir (Levemir Flextouch) 10 UNIT) SQ SCH (09:00)
[2017-12-14] MEDS ORDERED: inSUlin DETERMIR 1 UNIT/0.01 ML (LEVEMIR) CHARGE PER UNIT SQ SCH (09:00)
[2017-12-14 12:00] VITALS: BP 114/70
--- NOTE | 2017-12-14 13:13 | Discharge Summary ---
Diagnosis/Chief Complaint Date of Admission Dec 12, 2017 at 23:22 Date of Discharge Nov Reason Hospital Visit 42-year-old male admitted for right foot diabetic ulcer with suspected infection. Patient reports he was eating supper last night and developed rigors chills tachycardia similar to his presentation in September 2017 that resulted in sepsis. Patient presented to the ER in which he received IV fluids , and was started on Zosyn and vancomycin. His white blood cells were elevated. He was tachycardic and had a temperature of 99F. He is following with Dr. Valdez wound care and patient reports he was seen on and was suppose to start minocycline but he did not start taking it until 12/12/17. His diabetes is not under control as his last hga1c was 12 on November 30 compared to 13 in June 2017. No overnight events. Patient's white blood cells were back down, pulse is in the 70-90 range and he was afebrile overnight. Of note patient has a follow-up appointment with Dr. Kaiser of endocrinology for diabetes on January 10. Patient has not followed up at [facility] for his previous 2 admissions. This was discussed with patient that he needs to keep his next follow-up appointment after this admission for continuity of care. Discharge Summary Hospital Course Hospital Course November pt complained of anxiety and I gave a verbal order for hydroxyzine 25mg q8hr. The nurse gave 25mg hydralazine and afterwards noticed the error- Patient's blood pressure was monitored. I did discuss the error with the patient around 1145am 12/14/17. I apologized for the error and explained how it happened that I gave a verbal order. Patient noted the hydralazine did not help his anxiety and I explained why it did not work because it was a blood pressure medication. Patient's mom was present and made the comment "that if it was more serious her son could lyndsay and he could own this hospital." I then discussed with patient why he was anxious and he explained he has a lot going on in his life with work and home. So I will be starting him on buspar; he is in agreeance. Labs Laboratory Tests 12/12/17 21:26: Glucometer 258H 12/12/17 21:35: White Blood Count 12.6H, Hematocrit 39L, Neutrophils (%) (Auto) 77H, Neutrophils # (Auto) 9.7H, Monocytes # (Auto) 1.2H, Blood Urea Nitrogen 21H, Glucose Level 266H 12/12/17 21:40: 12/12/17 22:30: Urine Specific [place] 1.010L, Urine Protein 1+H, Urine Glucose (UA) 4+H, Urine RBC (Auto) 1+H 12/13/17 05:13: Glucometer 218H 12/13/17 05:16: Red Blood Count 4.15L, Hemoglobin 12.6L, Hematocrit 37L, Monocytes # (Auto) 1.1H , Carbon Dioxide Level 20L, Glucose Level 224H 12/13/17 11:04: Glucometer 194H 12/13/17 16:10: Glucometer 125H 12/13/17 20:53: Glucometer 237H 12/14/17 05:29: Glucometer 135H 12/14/17 07:20: 12/14/17 11:09: Glucometer 186H Procedures None. Discharge Physical Examination Allergies: Coded Allergies: No Known Drug Allergies (Unverified , 01/29/16) Vitals & I&Os Vital Signs Date Time Temp Pulse Resp B/P (MAP) Pulse Ox O2 Delivery O2 Flow Rate FiO2 12/14/17 08:31 98.4 84 16 100/60 (73) 98 Room Air Discharge Home Medications Reviewed and agree with Discharge Medication list on patient's Discharge Instruction sheet Instructions to Patient/Family Please see electronic discharge instructions given to patient. Clinical Quality Measures DVT/VTE Risk/Contraindication: Risk Factor Score Per Nursin RFS Level Per Nursing on Admit: 4+=Very High JEREMIE SCHWAB MD Dec 14, 2017 13:13
--- NOTE | 2017-12-14 13:15 | Discharge Inst-Simple/Standard ---
Discharge Inst-Standard Patient Instructions/Follow Up Plan of Care/Instructions/FU: follow up in 1-2 weeks at [facility] complete minocycline follow up with wound care Tuesday12/16/17 Activity as Tolerated: No (continue knee scooter) Discharge Diet: ADA Diet Return to The Hospital For: new concerns JEREMIE SCHWAB MD Dec 14, 2017 13:15
[2017-12-14] MEDS ORDERED: BUSP5TAB59 PO (13:17)
[2017-12-14 14:10] VITALS: BP 114/70
== END 2017-12-14 14:10 | disposition home or self-care (01) ==
LOC: EDUNIT# 21:10 → ER 21:11 → UNDOADMOB 23:22 → 4TH 23:22 → UNDODISOB 12-14 14:10
PROVIDERS: ADMIT Family Medicine; ATTEND Family Medicine
DX: L02.611 Cutaneous abscess of right foot (principal); E11.621 Type 2 diabetes mellitus with foot ulcer; L97.514 Non-pressure chronic ulcer of other part of right foot with necrosis of bone; E11.40 Type 2 diabetes mellitus with diabetic neuropathy, unspecified; E11.65 Type 2 diabetes mellitus with hyperglycemia; F41.9 Anxiety disorder, unspecified; T46.5X1A Poisoning by other antihypertensive drugs, accidental (unintentional), initial encounter; Z79.4 Long term (current) use of insulin
CPT/HCPCS: 36415; 71045; 73630; 80053; 80202; 81000; 82962; 83605; 85025; 85610; 85730; 87040; G0378

== ENCOUNTER → 2017-12-16 | Outpatient (CLI) | payer OTHER ==
[~2017-12-16] MED LIST changes: +BUSP5TAB59 PO; +CINN500C2 PO; +MINO100C2 PO
== END ==
LOC: WOUNDCARE 08:21
PROVIDERS: ATTEND Nurse Practitioner
DX: E11.621 Type 2 diabetes mellitus with foot ulcer (principal); E11.42 Type 2 diabetes mellitus with diabetic polyneuropathy; L97.514 Non-pressure chronic ulcer of other part of right foot with necrosis of bone
CPT/HCPCS: 11042

== ENCOUNTER → 2017-12-23 | Outpatient (CLI) | payer OTHER | LOC: WOUNDCARE 08:18 | PROVIDERS: ATTEND Surgery | DX: E11.621 Type 2 diabetes mellitus with foot ulcer (principal); E11.42 Type 2 diabetes mellitus with diabetic polyneuropathy; L97.512 Non-pressure chronic ulcer of other part of right foot with fat layer exposed | CPT/HCPCS: 11042 ==

== ENCOUNTER → 2017-12-30 | Outpatient (CLI) | payer OTHER | LOC: WOUNDCARE 08:21 | PROVIDERS: ATTEND Surgery | DX: E11.69 Type 2 diabetes mellitus with other specified complication (principal); M86.471 Chronic osteomyelitis with draining sinus, right ankle and foot; E11.621 Type 2 diabetes mellitus with foot ulcer; E11.42 Type 2 diabetes mellitus with diabetic polyneuropathy; L97.514 Non-pressure chronic ulcer of other part of right foot with necrosis of bone | CPT/HCPCS: 11042; 87070; 87075; 87077; 87186; 87205 ==

== ENCOUNTER → 2018-01-05 | Outpatient (CLI) | payer OTHER | LOC: WOUNDCARE 15:29 | PROVIDERS: ATTEND Orthopaedic Surgery Hand Surgery | DX: E11.621 Type 2 diabetes mellitus with foot ulcer (principal); E11.42 Type 2 diabetes mellitus with diabetic polyneuropathy; L97.514 Non-pressure chronic ulcer of other part of right foot with necrosis of bone; M86.471 Chronic osteomyelitis with draining sinus, right ankle and foot | CPT/HCPCS: 11042 ==

== ENCOUNTER → 2018-01-19 | Outpatient (CLI) | payer OTHER | LOC: WOUNDCARE 15:29 | PROVIDERS: ATTEND Orthopaedic Surgery Hand Surgery | DX: E11.621 Type 2 diabetes mellitus with foot ulcer (principal); E11.42 Type 2 diabetes mellitus with diabetic polyneuropathy; L97.516 Non-pressure chronic ulcer of other part of right foot with bone involvement without evidence of necrosis; M86.471 Chronic osteomyelitis with draining sinus, right ankle and foot | CPT/HCPCS: 11042 ==

== ENCOUNTER → 2018-01-26 | Outpatient (CLI) | payer OTHER | LOC: WOUNDCARE 15:27 | PROVIDERS: ATTEND Orthopaedic Surgery Hand Surgery | DX: E11.621 Type 2 diabetes mellitus with foot ulcer (principal); E11.42 Type 2 diabetes mellitus with diabetic polyneuropathy; L97.516 Non-pressure chronic ulcer of other part of right foot with bone involvement without evidence of necrosis; M86.471 Chronic osteomyelitis with draining sinus, right ankle and foot | CPT/HCPCS: 97597 ==

== ENCOUNTER → 2018-02-02 | Outpatient (CLI) | payer OTHER | LOC: WOUNDCARE 15:33 | PROVIDERS: ATTEND Orthopaedic Surgery Hand Surgery | DX: E11.621 Type 2 diabetes mellitus with foot ulcer (principal); E11.42 Type 2 diabetes mellitus with diabetic polyneuropathy; L97.516 Non-pressure chronic ulcer of other part of right foot with bone involvement without evidence of necrosis; M86.471 Chronic osteomyelitis with draining sinus, right ankle and foot | CPT/HCPCS: 99212 ==

== ENCOUNTER 2018-12-13 13:03 | Emergency (ER) | payer OTHER ==
[~2018-12-13] VITALS: Ht 185.5 cm; Wt 106.8 kg
[2018-12-13] MEDS ORDERED: NS IV 1000 ML 1,000 ML IV SCH ×2 (13:15→13:30)
--- NOTE | 2018-12-13 13:27 | ED General ---
General Chief Complaint: Abdominal/GI Problems Stated Complaint: LIGHTHEADED; DIZZINESS; VOMITING; TACHYCARDIA Source of Information: Patient Exam Limitations: No Limitations History of Present Illness Date Seen by Provider: Dec 13, 2018 Time Seen by Provider: 13:15 Initial Comments The patient is a 43-year-old male presents for evaluation of dizziness, lightheadedness, nausea or vomiting, and tachycardia. He states this same set of symptoms happen to him "over 100 times". He states that normally he comes in and gets IV fluids were sometimes he stays at home. He denies fevers or chills, headache, neck pain or stiffness, vision changes, focal weakness or numbness, chest pain or shortness of breath, abdominal or back pain, diarrhea, or syncope. He is alert and oriented 4, calm, and appears to be in no distress this time. He reports that his symptoms started earlier this morning. Timing/Duration: 4-6 Hours Severity: Moderate Associated Systoms: Denies Symptoms Allergies and Home Medications Allergies Coded Allergies: Sulfa (Sulfonamide Antibiotics) (Verified Allergy, Unknown, 12/13/18) Home Medications Buspirone HCl 5 Mg Tablet, 5 MG PO BID Prescribed by: JEREMIE SCHWAB on 12/14/17 1317 Cinnamon Bark 500 Mg Capsule, 500 MG PO DAILY, (Reported) Insulin Detemir 100 Unit/1 Ml Insuln.pen, 20 UNIT SQ HS, (Reported) Insulin Detemir 100 Unit/1 Ml Insuln.pen, 10 UNIT SQ DAILY, (Reported) Metformin HCl 500 Mg Tablet, 500 MG PO BID WITH MEALS, (Reported) Metoclopramide HCl 5 Mg Tablet, 5 MG PO TID PRN for STOMACH UPSET, (Reported) Minocycline HCl 100 Mg Capsule, 100 MG PO BID, (Reported) 5 DAY LALITO PICKED UP 12-12-17 Patient Home Medication List Home Medication List Reviewed: Yes Review of Systems Review of Systems Constitutional: no symptoms reported EENTM: no symptoms reported Respiratory: no symptoms reported Cardiovascular: palpitations Gastrointestinal: nausea, vomiting Genitourinary: no symptoms reported Musculoskeletal: no symptoms reported Skin: no symptoms reported Psychiatric/Neurological: No Symptoms Reported Hematologic/Lymphatic: No Symptoms Reported Immunological/Allergic: no symptoms reported All Other Systems Reviewed Negative Unless Noted: Yes Past Ecfdpbk-Nahvbz-Dgfreo Hx Past Med/Social Hx: Reviewed Nursing Past Med/Soc Hx Patient Social History 2nd Hand Smoke Exposure: No Recent Foreign Travel: No Recent Hopitalizations: No Immunizations Up To Date Tetanus Booster (TDap): Unknown Seasonal Allergies Seasonal Allergies: No Past Medical History Surgeries: Yes (R 3rd metatarsal amputation, abscess removed x2 right thigh) Amputation, Orthopedic Respiratory: No Cardiac: No Neurological: Yes Neuropathy Reproductive Disorders: No Genitourinary: No Gastrointestinal: No Musculoskeletal: Yes (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 6.4oz. 100.954320tw; 29.2 BMI Method:Stated General Appearance: No Apparent Distress, WD/WN HEENT: PERRL/EOMI, TMs Normal Neck: Full Range of Motion, Non Tender, Supple Cardiovascular: No Edema, No Gallop, No JVD, No Murmur, Normal Peripheral Pulses, Tachycardia Gastrointestinal: Normal Bowel Sounds, Non Tender, Soft Extremity: Normal Capillary Refill, Normal Inspection, Normal Range of Motion Neurologic/Psychiatric: Alert, Oriented x3, No Motor/Sensory Deficits, Normal Mood/Affect Skin: Normal Color, Warm/Dry Progress/Results/Core Measures Suspected Sepsis SIRS Temperature: Pulse: Respiratory Rate: Laboratory Tests 12/13/18 13:25: White Blood Count 17.8H Blood Pressure / Mean: Laboratory Tests 12/13/18 13:25: Creatinine 1.33H, Platelet Count 296, Total Bilirubin 0.6 Results/Orders Lab Results Laboratory Tests Test 12/13/18 13:25 12/13/18 13:50 Range/Units White Blood Count 17.8 H 4.3-11.0 10^3/uL Red Blood Count 5.30 4.35-5.85 10^6/uL Hemoglobin 16.3 13.3-17.7 G/DL Hematocrit 47 40-54 % Mean Corpuscular Volume 89 80-99 FL Mean Corpuscular Hemoglobin 31 25-34 PG Mean Corpuscular Hemoglobin Concent 35 32-36 G/DL Red Cell Distribution Width 12.4 10.0-14.5 % Platelet Count 296 130-400 10^3/uL Mean Platelet Volume 10.0 7.4-10.4 FL Neutrophils (%) (Auto) 89 H 42-75 % Lymphocytes (%) (Auto) 3 L 12-44 % Monocytes (%) (Auto) 7 0-12 % Eosinophils (%) (Auto) 0 0-10 % Basophils (%) (Auto) 0 0-10 % Neutrophils # (Auto) 15.9 H 1.8-7.8 X 10^3 Lymphocytes # (Auto) 0.5 L 1.0-4.0 X 10^3 Monocytes # (Auto) 1.2 H 0.0-1.0 X 10^3 Eosinophils # (Auto) 0.1 0.0-0.3 10^3/uL Basophils # (Auto) 0.1 0.0-0.1 10^3/uL Neutrophils % (Manual) 57 % Lymphocytes % (Manual) 2 % Monocytes % (Manual) 5 % Eosinophils % (Manual) 1 % Basophils % (Manual) 0 % Metamyelocytes % 2 % Band Neutrophils 33 % Sodium Level 137 135-145 MMOL/L Potassium Level 4.4 3.6-5.0 MMOL/L Chloride Level 99 98-107 MMOL/L Carbon Dioxide Level 24 21-32 MMOL/L Anion Gap 14 5-14 MMOL/L Blood Urea Nitrogen 18 7-18 MG/DL Creatinine 1.33 H 0.60-1.30 MG/DL Estimat Glomerular Filtration Rate 59 BUN/Creatinine Ratio 14 Glucose Level 242 H 70-105 MG/DL Calcium Level 9.8 8.5-10.1 MG/DL Corrected Calcium 9.6 8.5-10.1 MG/DL Total Bilirubin 0.6 0.1-1.0 MG/DL Aspartate Amino Transf (AST/SGOT) 25 5-34 U/L Alanine Aminotransferase (ALT/SGPT) 34 0-55 U/L Alkaline Phosphatase 73 40-136 U/L Total Protein 7.4 6.4-8.2 GM/DL Albumin 4.3 3.2-4.5 GM/DL Lipase 6 L 8-78 U/L Urine Color YELLOW Urine Clarity CLEAR Urine pH 5.5 5-9 Urine Specific [place] >=1.030 1.016-1.022 Urine Protein 1+ H NEGATIVE Urine Glucose (UA) 2+ H NEGATIVE Urine Ketones NEGATIVE NEGATIVE Urine Nitrite NEGATIVE NEGATIVE Urine Bilirubin NEGATIVE NEGATIVE Urine Urobilinogen 0.2 NORMAL MG/DL Urine Leukocyte Esterase NEGATIVE NEGATIVE Urine RBC (Auto) NEGATIVE NEGATIVE Urine RBC NONE /HPF Urine WBC NONE /HPF Urine Squamous Epithelial Cells NONE /HPF Urine Crystals NONE /LPF Urine Bacteria NEGATIVE /HPF Urine Casts PRESENT /LPF Urine Hyaline Casts 2-5 H /LPF Urine Mucus NONE /LPF Urine Other FEW SPERM H /HPF Urine Culture Indicated NO My Orders Orders - TIN AGUIRRE DO Cbc With Automated Diff (12/13/18 13:11) Comprehensive Metabolic Panel (12/13/18 13:11) Lipase (12/13/18 13:11) Ua Culture If Indicated (12/13/18 13:11) Ed Iv/Invasive Line Start (12/13/18 13:11) Ns Iv 1000 Ml (Sodium Chloride 0.9%) (12/13/18 13:15) Ekg Tracing (12/13/18 13:11) Ondansetron Injection (Zofran Injectio (12/13/18 13:30) Lorazepam Injection (Ativan Injection) (12/13/18 13:30) Ns Iv 1000 Ml (Sodium Chloride 0.9%) (12/13/18 13:30) Manual Differential (12/13/18 13:25) Medications Given in ED Current Medications Medications Dose Ordered Sig/Amy Route Start Time Stop Time Status Last Admin Dose Admin Lorazepam 0.5 mg ONCE PRN IVP 12/13/18 13:30 12/13/18 13:32 0.5 MG Ondansetron HCl 4 mg ONCE ONCE IVP 12/13/18 13:30 12/13/18 13:31 DC 12/13/18 13:32 4 MG Vital Signs/I&O 12/13/18 13:05 Temp 37.0 Pulse 136 Resp 14 B/P (MAP) 126/83 (97) Pulse Ox 98 O2 Delivery Room Air Capillary Refill : Progress Note : Progress Note @1453 - patient updated on lab results. His heart rate is now below 110. He states that he has another appointment he has to get to and wants to leave and is feeling much better. Workup today fails to reveal any emergent pathology. The patient is stable for discharge home at this time. ECG Comment EKG@1315 - Sinus tachycardia, rate of 130, no acute ischemic findings noted, no STEMI, reviewed and interpreted by myself Departure Impression Primary Impression: Tachycardia, paroxysmal Disposition: 01 HOME, SELF-CARE Condition: Stable Departure-Patient Inst. Referrals: JEREMIE SCHWAB MD (PCP/Family) Primary Care Physician Patient Instructions: Gastroparesis (Delayed Gastric Emptying), Nausea and Vomiting, Adult, Tachycardia Add. Discharge Instructions: Take the prescribed medication as directed, as needed. Return to the Emergency Department immediately for new or worsening symptoms. Follow-up with your doctor in the next 1-2 days. Scripts Ondansetron (Ondansetron Odt) 4 Mg Tab.rapdis 4 MG PO Q6H PRN for NAUSEA/VOMITING for 5 Days, #20 TAB Prov: TIN AGUIRRE DO 12/13/18 TIN AGUIRRE DO Dec 13, 2018 13:27
[2018-12-13] MEDS ORDERED: ONDANSETRON 4 MG/2 ML (SDV) Z0FRAN IVP ONE (13:30)
[2018-12-13] MEDS ORDERED: LORazepam INJ 2 MG/ML (ATIVAN) VIAL IVP PRN (13:30)
[2018-12-13 13:35] LABS: HEMATOCRIT 47 % (40-54); HEMOGLOBIN 16.3 G/DL (13.3-17.7); MEAN CORPUSCULAR HEMOGLOBIN 31 PG (25-34); MEAN CORPUSCULAR HGB CONC 35 G/DL (32-36); MEAN CORPUSCULAR VOLUME 89 FL (80-99); PLATELET COUNT 296 10^3/uL (130-400); RED CELL DISTRIBUTION WIDTH 12.4 % (10.0-14.5); WHITE BLOOD COUNT 17.8 10^3/uL (4.3-11.0)
[2018-12-13 13:36] LABS: BASOPHILS # (AUTO) 0.1 10^3/uL (0.0-0.1); BASOPHILS % (AUTO) 0 % (0-10); EOSINOPHILS # (AUTO) 0.1 10^3/uL (0.0-0.3); EOSINOPHILS % (AUTO) 0 % (0-10); LYMPHOCYTES # (AUTO) 0.5 X 10^3 (1.0-4.0); LYMPHOCYTES % (AUTO) 3 % (12-44); MONOCYTES # (AUTO) 1.2 X 10^3 (0.0-1.0); MONOCYTES % (AUTO) 7 % (0-12); NEUTROPHILS # (AUTO) 15.9 X 10^3 (1.8-7.8); NEUTROPHILS % (AUTO) 89 % (42-75)
[2018-12-13 13:53] LABS: CREATININE SERUM 1.33 MG/DL (0.60-1.30); POTASSIUM 4.4 MMOL/L (3.6-5.0)
[2018-12-13 13:54] LABS: ALBUMIN 4.3 GM/DL (3.2-4.5); BILIRUBIN,TOTAL 0.6 MG/DL (0.1-1.0); CALCIUM 9.8 MG/DL (8.5-10.1); TOTAL PROTEIN 7.4 GM/DL (6.4-8.2)
[2018-12-13 14:05] LABS: COLOR,URINE YELLOW
[2018-12-13 14:06] LABS: BACTERIA,URINE NEGATIVE /HPF; BILIRUBIN,URINE NEGATIVE (NEGATIVE); CLARITY,URINE CLEAR; GLUCOSE, URINE (UA) 2+ (NEGATIVE); KETONES,URINE NEGATIVE (NEGATIVE); LEUKOCYTE ESTERASE ,URINE NEGATIVE (NEGATIVE); NITRITE,URINE NEGATIVE (NEGATIVE); PH,URINE 5.5 (5-9); PROTEIN,URINE 1+ (NEGATIVE)
[2018-12-13 14:07] LABS: URINE OTHER FEW SPERM /HPF
[2018-12-13 14:15] LABS: BAND NEUTROPHILS 33 %; BASOPHILS % (MANUAL) 0 %; EOSINOPHILS % (MANUAL) 1 %; LYMPHOCYTES % (MANUAL) 2 %; METAMYELOCYTES % 2 %; MONOCYTES % (MANUAL) 5 %; NEUTROPHILS % (MANUAL) 57 %
[2018-12-13] MEDS ORDERED: ONDA4TAB11 PO (14:58)
[2018-12-13 15:30] VITALS: BP 134/83
== END 2018-12-13 15:30 | disposition home or self-care (01) ==
LOC: EDUNIT# 13:03 → ER FS 13:04
DX: I47.9 Paroxysmal tachycardia, unspecified (principal); E11.40 Type 2 diabetes mellitus with diabetic neuropathy, unspecified; Z89.421 Acquired absence of other right toe(s); Z88.2 Allergy status to sulfonamides; Z79.4 Long term (current) use of insulin; Z82.49 Family history of ischemic heart disease and other diseases of the circulatory system
CPT/HCPCS: 36415; 80053; 81000; 83690; 85007; 85027; 93005; 96361; 96374; 96375

== ENCOUNTER → 2019-03-01 | Outpatient (CLI) | payer OTHER ==
[~2019-03-01] MED LIST changes: +ONDA4TAB11 PO
[2019-03-01 17:27] LABS: BASOPHILS % (AUTO) 1 % (0-10); EOSINOPHILS # (AUTO) 0.1 10^3/uL (0.0-0.3); EOSINOPHILS % (AUTO) 1 % (0-10); HEMATOCRIT 47 % (40-54); HEMOGLOBIN 16.7 G/DL (13.3-17.7); LYMPHOCYTES # (AUTO) 1.3 X 10^3 (1.0-4.0); LYMPHOCYTES % (AUTO) 17 % (12-44); MEAN CORPUSCULAR HEMOGLOBIN 31 PG (25-34); MEAN CORPUSCULAR HGB CONC 35 G/DL (32-36); MEAN CORPUSCULAR VOLUME 87 FL (80-99); MEAN PLATELET VOLUME 10.2 FL (7.4-10.4); MONOCYTES # (AUTO) 0.6 X 10^3 (0.0-1.0); MONOCYTES % (AUTO) 8 % (0-12); NEUTROPHILS # (AUTO) 5.8 X 10^3 (1.8-7.8); NEUTROPHILS % (AUTO) 74 % (42-75); PLATELET COUNT 311 10^3/uL (130-400); RED CELL DISTRIBUTION WIDTH 13.2 % (10.0-14.5); WHITE BLOOD COUNT 7.8 10^3/uL (4.3-11.0)
[2019-03-01 17:43] LABS: ALANINE AMINOTRANSFERASE 29 U/L (0-55); ALBUMIN 4.5 GM/DL (3.2-4.5); ALKALINE PHOSPHATASE 71 U/L (40-136); BILIRUBIN,TOTAL 0.6 MG/DL (0.1-1.0); BUN/CREATININE RATIO 13; CALCIUM 10.2 MG/DL (8.5-10.1); CARBON DIOXIDE 21 MMOL/L (21-32); CHLORIDE 101 MMOL/L (98-107); CREATININE SERUM 1.27 MG/DL (0.60-1.30); GFR ESTIMATED > 60; GLUCOSE 394 MG/DL (70-105); MAGNESIUM 1.4 MG/DL (1.6-2.4); POTASSIUM 4.5 MMOL/L (3.6-5.0); SODIUM 135 MMOL/L (135-145); TOTAL PROTEIN 7.5 GM/DL (6.4-8.2)
== END ==
LOC: LAB 17:08
PROVIDERS: ATTEND Family Medicine
DX: I95.9 Hypotension, unspecified (principal); R42 Dizziness and giddiness; R00.1 Bradycardia, unspecified; R53.83 Other fatigue
CPT/HCPCS: 36415; 80053; 83036; 83735; 84443; 85025

== ENCOUNTER 2020-02-16 12:27 | Emergency (ER) | payer OTHER ==
[~2020-02-16] VITALS: Ht 182 cm; Wt 106.8 kg
[~2020-02-16 12:27] MED LIST changes: +LEVO750P IV; -LEVO750P7 IV; -MINO100C2 PO; +MINO100C5 PO
--- NOTE | 2020-02-16 12:58 | ED Integumentary General ---
General Chief Complaint: Skin/Wound Problems Stated Complaint: R LEG SWELLING/FOOT WOUND Source: patient Exam Limitations: no limitations History of Present Illness Date Seen by Provider: Feb 16, 2020 Time Seen by Provider: 12:56 Initial Comments To ER with a chronic right foot wound which she has had for a very long time. However he over the past few days has developed some tender lymph nodes in the right inguinal region and some swelling of the ankle. No fevers or chills. he is diabetic. Follows with Dr. Telly Schwab. Currently on Augmentin prescribed by [facility] for this foot wound and no was continued on that by Dr. Schwab. Timing/Duration: constant Severity: moderate Location: feet Associated Symptoms: denies symptoms Allergies and Home Medications Allergies Coded Allergies: Sulfa (Sulfonamide Antibiotics) (Verified Allergy, Unknown, 12/13/18) Home Medications Buspirone HCl 5 Mg Tablet, 5 MG PO BID Prescribed by: TELLY SCHWAB on 12/14/17 1317 Cinnamon Bark 500 Mg Capsule, 500 MG PO DAILY, (Reported) Doxycycline Hyclate 100 Mg Tablet, 100 MG PO BID Prescribed by: EDUARDO LONGO on 02/16/20 1454 Hydrocodone/Acetaminophen 1 Each Tablet, 1 EACH PO Q4H PRN for PAIN-MODERATE (5-7) Prescribed by: EDUARDO LONGO on 02/16/20 1454 Insulin Detemir 100 Unit/1 Ml Insuln.pen, 20 UNIT SQ HS, (Reported) Insulin Detemir 100 Unit/1 Ml Insuln.pen, 10 UNIT SQ DAILY, (Reported) Metformin HCl 500 Mg Tablet, 500 MG PO BID WITH MEALS, (Reported) Metoclopramide HCl 5 Mg Tablet, 5 MG PO TID PRN for STOMACH UPSET, (Reported) Minocycline HCl 100 Mg Capsule, 100 MG PO BID, (Reported) 5 DAY THEARPY PICKED UP 12-12-17 Ondansetron 4 Mg Tab.rapdis, 4 MG PO Q6H PRN for NAUSEA/VOMITING Prescribed by: TIN AGUIRRE on 12/13/18 1458 Patient Home Medication List Home Medication List Reviewed: Yes Review of Systems Review of Systems Constitutional: see HPI EENTM: see HPI Respiratory: no symptoms reported Cardiovascular: no symptoms reported Genitourinary: no symptoms reported Musculoskeletal: see HPI Skin: see HPI Psychiatric/Neurological: No Symptoms Reported Endocrine: No Symptoms Reported Past Luoxuun-Jtqjzr-Xjexnn Hx Patient Social History Alcohol Use: Occasionally Uses Recreational Drug Use: No Smoking Status: Never a Smoker 2nd Hand Smoke Exposure: No Recent Foreign Travel: No Contact w/Someone Who Travel: No Recent Hopitalizations: No Immunizations Up To Date Tetanus Booster (TDap): Unknown Seasonal Allergies Seasonal Allergies: No Past Medical History Surgeries: Yes (R 3rd metatarsal amputation, abscess removed x2 right thigh) Amputation, Orthopedic Respiratory: No Cardiac: No Neurological: Yes Neuropathy Reproductive Disorders: No Genitourinary: No Gastrointestinal: No Musculoskeletal: Yes (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 Endocrine: Yes Diabetes, Insulin dep HEENT: No Cancer: No Psychosocial: No Integumentary: Yes (chronic wound bottom R foot; ABSCESs) Blood Disorders: No Family Medical History Diabetes mellitus 19 FATHER 19 MOTHER G8 BROTHER FHx: supraventricular tachycardia 19 MOTHER Cancer, Diabetes Physical Exam Vital Signs Vital Signs - First Documented 02/16/20 12:52 Temp 37.0 Pulse 122 Resp 20 B/P (MAP) 119/85 (96) Pulse Ox 100 Capillary Refill : General Appearance: WD/WN, no apparent distress, other (Very pleasant gentleman) Neck: non-tender, full range of motion Respiratory: no respiratory distress, no accessory muscle use Extremities: other (The plantar surface of the right foot there is a tunneling wound over the forefoot near the fourth metatarsal. There is no surrounding erythema. Minimal drainage. He only has 4 toes, previous resection of the third digit secondary to osteomyelitis.) Neurologic/Psychiatric: alert, normal mood/affect, oriented x 3 Skin: normal color, warm/dry, other (There is no erythema of the wound) Skin Problem Location: lower extremities Skin Problem Character: other (There is palpable right inguinal lymphadenopathy. There is trace pitting edema to the right ankle. There is a tunneling deep ulcer to the plantar surface of the right forefoot) Progress/Results/Core Measures Results/Orders Lab Results Laboratory Tests Test 02/16/20 13:00 Range/Units White Blood Count 6.0 4.3-11.0 10^3/uL Red Blood Count 3.87 L 4.30-5.52 10^6/uL Hemoglobin 12.0 L 13.3-17.7 g/dL Hematocrit 36 L 40-54 % Mean Corpuscular Volume 92 80-99 fL Mean Corpuscular Hemoglobin 31 25-34 pg Mean Corpuscular Hemoglobin Concent 34 32-36 g/dL Red Cell Distribution Width 12.8 10.0-14.5 % Platelet Count 274 130-400 10^3/uL Mean Platelet Volume 10.1 9.0-12.2 fL Immature Granulocyte % (Auto) 0 % Neutrophils (%) (Auto) 65 42-75 % Lymphocytes (%) (Auto) 21 12-44 % Monocytes (%) (Auto) 8 0-12 % Eosinophils (%) (Auto) 4 0-10 % Basophils (%) (Auto) 1 0-10 % Neutrophils # (Auto) 3.9 1.8-7.8 10^3/uL Lymphocytes # (Auto) 1.3 1.0-4.0 10^3/uL Monocytes # (Auto) 0.5 0.0-1.0 10^3/uL Eosinophils # (Auto) 0.2 0.0-0.3 10^3/uL Basophils # (Auto) 0.1 0.0-0.1 10^3/uL Immature Granulocyte # (Auto) 0.0 0.0-0.1 10^3/uL Erythrocyte Sedimentation Rate 57 H 0-15 MM/HR D-Dimer 0.27 0.00-0.49 UG/ML Sodium Level 136 135-145 MMOL/L Potassium Level 4.4 3.6-5.0 MMOL/L Chloride Level 101 98-107 MMOL/L Carbon Dioxide Level 23 21-32 MMOL/L Anion Gap 12 5-14 MMOL/L Blood Urea Nitrogen 20 H 7-18 MG/DL Creatinine 1.00 0.60-1.30 MG/DL Estimat Glomerular Filtration Rate > 60 BUN/Creatinine Ratio 20 Glucose Level 240 H 70-105 MG/DL Calcium Level 9.0 8.5-10.1 MG/DL Corrected Calcium 9.2 8.5-10.1 MG/DL Total Bilirubin 0.2 0.1-1.0 MG/DL Aspartate Amino Transf (AST/SGOT) 13 5-34 U/L Alanine Aminotransferase (ALT/SGPT) 16 0-55 U/L Alkaline Phosphatase 72 40-136 U/L Total Protein 7.1 6.4-8.2 GM/DL Albumin 3.7 3.2-4.5 GM/DL Beta-Hydroxybutyrate (Chem panel) 0.08 0.00-0.27 MMOL/L My Orders Orders - EDUARDO LONGO APRN Cbc With Automated Diff (02/16/20 12:55) Erythrocyte Sedimentation Rate (02/16/20 12:55) Comprehensive Metabolic Panel (02/16/20 12:55) Ed Iv/Invasive Line Start (02/16/20 12:55) Beta Hydroxybutyrate (02/16/20 12:55) Foot, Right, 3 View (02/16/20 12:55) Fibrin Degradation Products (02/16/20 14:14) Vital Signs/I&O 02/16/20 12:52 Temp 37.0 Pulse 122 Resp 20 B/P (MAP) 119/85 (96) Pulse Ox 100 Departure Communication (Admissions) 1449-I spoke with Dr. Telly Schwab patient's primary care provider agrees with continuing outpatient therapy. The patient has an appointment with fish tender Dr. Cowan on 02/24/2019. His labs are unremarkable and there is no need for hospitalization At this time. D-dimer is negative. Impression Primary Impression: Osteomyelitis of right foot Disposition: 01 HOME, SELF-CARE Condition: Stable Departure-Patient Inst. Decision time for Depature: 14:52 Referrals: TELLY SCHWAB MD (PCP/Family) Primary Care Physician Patient Instructions: Osteomyelitis in Adults Add. Discharge Instructions: Call Dr. Cowan on Tuesday and let him know that there is evidence of osteomyelitis on x-ray. He may be fine with seeing you on 02/24/2019 or he may want to see you sooner. In the meantime keep an eye out for any systemic symptoms such as fevers chills or redness of the foot. These would indicate need for hospital admission. In the meantime we can continue oral antibiotics. Your labs today do not suggest any systemic infection, only the localized infection seen on x-ray. This will need antibiotics and probably surgical debridement of the infected tissue. All discharge instructions reviewed with patient and/or family. Voiced understanding. Scripts Hydrocodone/Acetaminophen (Hydrocodone-Acetamin 5-325 mg) 1 Each Tablet 1 EACH PO Q4H PRN for PAIN-MODERATE (5-7), #14 TAB Prov: EDUARDO LONGO APRN 02/16/20 Doxycycline Hyclate (Doxycycline Hyclate) 100 Mg Tablet 100 MG PO BID, #20 TAB 0 Refills Prov: EDUARDO LONGO APRN 02/16/20 Copy Copies To 1: TELLY SCHWAB MD, PETER J APRN Feb 16, 2020 12:58
[2020-02-16 13:37] LABS: BASOPHILS # (AUTO) 0.1 10^3/uL (0.0-0.1); BASOPHILS % (AUTO) 1 % (0-10); EOSINOPHILS # (AUTO) 0.2 10^3/uL (0.0-0.3); EOSINOPHILS % (AUTO) 4 % (0-10); HEMATOCRIT 36 % (40-54); LYMPHOCYTES # (AUTO) 1.3 10^3/uL (1.0-4.0); LYMPHOCYTES % (AUTO) 21 % (12-44); MEAN CORPUSCULAR HEMOGLOBIN 31 pg (25-34); MEAN CORPUSCULAR HGB CONC 34 g/dL (32-36); MEAN CORPUSCULAR VOLUME 92 fL (80-99); MEAN PLATELET VOLUME 10.1 fL (9.0-12.2); MONOCYTES # (AUTO) 0.5 10^3/uL (0.0-1.0); MONOCYTES % (AUTO) 8 % (0-12); NEUTROPHILS # (AUTO) 3.9 10^3/uL (1.8-7.8); NEUTROPHILS % (AUTO) 65 % (42-75); PLATELET COUNT 274 10^3/uL (130-400)
--- NOTE | 2020-02-16 13:51 | Diagnostic Imaging Report ---
EXAMINATION: Right foot radiographs, 3 views. COMPARISON: Right foot radiographs December 12, 2017. HISTORY: 44-year-old male, right foot ulcer. FINDINGS: There is abnormal gas centered in the region of the fourth metatarsophalangeal joint. There is interval bone destruction of the fourth metatarsal and fourth proximal phalanx subjacent to the fourth metatarsophalangeal joint compatible with osteomyelitis. There is postoperative absence of the distal aspect of the third metatarsal and absence of the third digit phalanges. 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 There is a bipartite medial sesamoid. There is mild degenerative type enthesopathy at the Achilles tendon insertion. IMPRESSION: 1. Findings consistent with osteomyelitis subjacent of the fourth metatarsal phalangeal joint given the presence of osteomyelitis on both sides of the joint, there is likely septic arthritis. Dictated by: Dictated on workstation # [id number]
[2020-02-16 13:53] LABS: ALBUMIN 3.7 GM/DL (3.2-4.5); CHLORIDE 101 MMOL/L (98-107); POTASSIUM 4.4 MMOL/L (3.6-5.0); SODIUM 136 MMOL/L (135-145)
[2020-02-16 13:55] LABS: GLUCOSE 240 MG/DL (70-105); TOTAL PROTEIN 7.1 GM/DL (6.4-8.2)
[2020-02-16 13:56] LABS: CARBON DIOXIDE 23 MMOL/L (21-32)
[2020-02-16 13:57] LABS: BILIRUBIN,TOTAL 0.2 MG/DL (0.1-1.0)
[2020-02-16 13:58] LABS: ERYTHROCYTE SEDIMENTATION RATE 57 MM/HR (0-15)
[2020-02-16 13:59] LABS: ALKALINE PHOSPHATASE 72 U/L (40-136); GFR ESTIMATED > 60
[2020-02-16 14:00] LABS: BUN/CREATININE RATIO 20
[2020-02-16 14:02] LABS: ALANINE AMINOTRANSFERASE 16 U/L (0-55)
[2020-02-16] MEDS ORDERED: ACHD5005 PO (14:54)
[2020-02-16] MEDS ORDERED: DOXY100T2 PO (14:54)
[2020-02-16 15:05] VITALS: BP 119/85
== END 2020-02-16 15:05 | disposition home or self-care (01) ==
LOC: EDUNIT# 12:27 → ER 12:29
DX: M86.171 Other acute osteomyelitis, right ankle and foot (principal); E11.9 Type 2 diabetes mellitus without complications; Z88.2 Allergy status to sulfonamides; Z83.3 Family history of diabetes mellitus; Z80.9 Family history of malignant neoplasm, unspecified; Z79.4 Long term (current) use of insulin
CPT/HCPCS: 36415; 73630; 80053; 82010; 85025; 85379; 85652; 86141

== ENCOUNTER 2021-04-15 11:21 | Outpatient (RCR) | payer OTHER ==
[2021-03-30 13:55] VITALS: BP 171/94
[2021-03-30 14:16] LABS: BASOPHILS # (AUTO) 0.1 10^3/uL (0.0-0.1); BASOPHILS % (AUTO) 1 % (0-10); EOSINOPHILS # (AUTO) 0.4 10^3/uL (0.0-0.3); EOSINOPHILS % (AUTO) 4 % (0-10); HEMATOCRIT 31 % (40-54); HEMOGLOBIN 10.2 g/dL (13.3-17.7); LYMPHOCYTES # (AUTO) 1.3 10^3/uL (1.0-4.0); LYMPHOCYTES % (AUTO) 12 % (12-44); MEAN CORPUSCULAR HEMOGLOBIN 29 pg (25-34); MEAN CORPUSCULAR HGB CONC 33 g/dL (32-36); MEAN CORPUSCULAR VOLUME 89 fL (80-99); MEAN PLATELET VOLUME 9.1 fL (9.0-12.2); MONOCYTES # (AUTO) 0.7 10^3/uL (0.0-1.0); MONOCYTES % (AUTO) 7 % (0-12); NEUTROPHILS # (AUTO) 8.1 10^3/uL (1.8-7.8); NEUTROPHILS % (AUTO) 76 % (42-75); PLATELET COUNT 425 10^3/uL (130-400); WHITE BLOOD COUNT 10.6 10^3/uL (4.3-11.0)
[2021-03-30 14:27] LABS: POTASSIUM 4.1 MMOL/L (3.6-5.0)
[2021-03-30 14:28] LABS: CALCIUM 9.2 MG/DL (8.5-10.1)
[2021-03-30 14:31] LABS: BILIRUBIN,TOTAL 0.2 MG/DL (0.1-1.0)
[2021-03-30 14:33] LABS: CREATININE SERUM 1.2 MG/DL (0.60-1.30)
[2021-03-30 14:34] LABS: ERYTHROCYTE SEDIMENTATION RATE > 140 MM/HR (0-15)
[2021-04-06 11:50] VITALS: BP 173/105
[2021-04-06 12:09] LABS: HEMATOCRIT 30 % (40-54); HEMOGLOBIN 9.9 g/dL (13.3-17.7); MEAN CORPUSCULAR HEMOGLOBIN 29 pg (25-34); MEAN CORPUSCULAR HGB CONC 33 g/dL (32-36); MEAN CORPUSCULAR VOLUME 90 fL (80-99); MEAN PLATELET VOLUME 9.3 fL (9.0-12.2); PLATELET COUNT 380 10^3/uL (130-400); WHITE BLOOD COUNT 15.4 10^3/uL (4.3-11.0)
[2021-04-06 12:23] LABS: ALBUMIN 3.1 GM/DL (3.2-4.5); POTASSIUM 4.1 MMOL/L (3.6-5.0)
[2021-04-06 12:24] LABS: CALCIUM 8.5 MG/DL (8.5-10.1)
[2021-04-06 12:25] LABS: TOTAL PROTEIN 7.2 GM/DL (6.4-8.2)
[2021-04-06 12:27] LABS: BILIRUBIN,TOTAL 0.4 MG/DL (0.1-1.0)
[2021-04-06 12:29] LABS: CREATININE SERUM 1.38 MG/DL (0.60-1.30)
[2021-04-06 12:32] LABS: ERYTHROCYTE SEDIMENTATION RATE 90 MM/HR (0-15)
[~2021-04-15 11:21] MED LIST changes: +ACHD5005 PO; +DAPT500V18 IV; -DAPT500V3 IV; -DOXY100C2 PO; +DOXY100C5 PO; +DOXY100T2 PO; -LISI10TA2 PO; +LISI10TA25 PO; +LISI5TAB20 PO; -SULF1TAB35 PO; +SULF1TAB38 PO
[2021-04-15 11:40] VITALS: BP 175/107
[2021-04-15 11:54] LABS: HEMATOCRIT 27 % (40-54); MEAN CORPUSCULAR HEMOGLOBIN 29 pg (25-34); MEAN CORPUSCULAR HGB CONC 33 g/dL (32-36); MEAN CORPUSCULAR VOLUME 89 fL (80-99); MEAN PLATELET VOLUME 9.6 fL (9.0-12.2); PLATELET COUNT 278 10^3/uL (130-400); WHITE BLOOD COUNT 7.6 10^3/uL (4.3-11.0)
[2021-04-15 12:13] LABS: BILIRUBIN,TOTAL 0.2 MG/DL (0.1-1.0); CALCIUM 8.6 MG/DL (8.5-10.1); CREATININE SERUM 1.8 MG/DL (0.60-1.30); POTASSIUM 4.7 MMOL/L (3.6-5.0); TOTAL PROTEIN 7.1 GM/DL (6.4-8.2)
[2021-04-15 12:34] LABS: ERYTHROCYTE SEDIMENTATION RATE > 140 MM/HR (0-15)
[2021-04-28] MEDS ORDERED: AMOX1TAB12 PO (11:57)
== END 2021-04-20 | disposition home or self-care (01) ==
LOC: SDC 11:21
PROVIDERS: ATTEND Internal Medicine Infectious Disease
DX: A49.02 Methicillin resistant Staphylococcus aureus infection, unspecified site (principal); L02.612 Cutaneous abscess of left foot; E11.65 Type 2 diabetes mellitus with hyperglycemia
CPT/HCPCS: 80053; 82550; 85025; 85652; G0463; 36415; 85027; 99211

== ENCOUNTER 2021-04-27 09:20 | Observation (INO) | payer OTHER ==
[~2021-04-27] VITALS: Ht 185 cm; Wt 100.5 kg
[2021-04-27 09:51] LABS: BASOPHILS # (AUTO) 0.1 10^3/uL (0.0-0.1); BASOPHILS % (AUTO) 1 % (0-10); EOSINOPHILS # (AUTO) 0.1 10^3/uL (0.0-0.3); EOSINOPHILS % (AUTO) 1 % (0-10); HEMATOCRIT 32 % (40-54); HEMOGLOBIN 10.7 g/dL (13.3-17.7); LYMPHOCYTES # (AUTO) 1.2 10^3/uL (1.0-4.0); LYMPHOCYTES % (AUTO) 10 % (12-44); MEAN CORPUSCULAR HEMOGLOBIN 29 pg (25-34); MEAN CORPUSCULAR HGB CONC 34 g/dL (32-36); MEAN CORPUSCULAR VOLUME 85 fL (80-99); MEAN PLATELET VOLUME 9.7 fL (9.0-12.2); MONOCYTES # (AUTO) 0.7 10^3/uL (0.0-1.0); MONOCYTES % (AUTO) 6 % (0-12); NEUTROPHILS # (AUTO) 9.6 10^3/uL (1.8-7.8); NEUTROPHILS % (AUTO) 82 % (42-75); PLATELET COUNT 414 10^3/uL (130-400); WHITE BLOOD COUNT 11.8 10^3/uL (4.3-11.0)
[2021-04-27] MEDS ORDERED: FAMOTIDINE 20MG/2ML IV (PEPCID) IVP ONE (10:00)
[2021-04-27] MEDS ORDERED: inSUlin (REGULAR) HUMAN 1 UNIT/0.01 ML (CHARGE PER UNIT) IV ONE (10:00)
[2021-04-27] MEDS ORDERED: ONDANSETRON 4 MG/2 ML (SDV) Z0FRAN IVP ONE ×2 (10:00→14:00)
[2021-04-27 10:06] LABS: INR 0.9 (0.8-1.4); PROTHROMBIN TIME PATIENT 12.9 SEC (12.2-14.7)
[2021-04-27 10:08] LABS: ALBUMIN 3.2 GM/DL (3.2-4.5)
[2021-04-27 10:09] LABS: POTASSIUM 4.6 MMOL/L (3.6-5.0)
[2021-04-27 10:10] LABS: CALCIUM 9.9 MG/DL (8.5-10.1)
[2021-04-27 10:11] LABS: TOTAL PROTEIN 7.5 GM/DL (6.4-8.2)
[2021-04-27 10:13] LABS: BILIRUBIN,TOTAL 0.4 MG/DL (0.1-1.0)
[2021-04-27 10:15] LABS: CREATININE SERUM 2.02 MG/DL (0.60-1.30)
[2021-04-27] MEDS ORDERED: NS IV 1000 ML 1,000 ML IV SCH (11:15)
[2021-04-27] MEDS ORDERED: fentaNYL INJ 100 MCG/2 ML AMP ONE (11:26)
[2021-04-27] MEDS ORDERED: meTOprolol 5 MG/5 ML (LOPRESSOR) VIAL ONE (11:26)
[2021-04-27] MEDS ORDERED: fentaNYL INJ 100 MCG/2 ML AMP IVP ONE (11:30)
[2021-04-27] MEDS ORDERED: LABETALOL HCL 20 MG/4 ML VIAL IV ONE (11:30)
[2021-04-27] MEDS ORDERED: PROMETHAZINE INJ 25 MG/ML (PHENERGAN) AMP IVP ONE ×2 (11:30→14:00)
[2021-04-27 11:39] LABS: BILIRUBIN,URINE NEGATIVE (NEGATIVE); CLARITY,URINE CLEAR; COLOR,URINE YELLOW; GLUCOSE, URINE (UA) 3+ (NEGATIVE); KETONES,URINE NEGATIVE (NEGATIVE); LEUKOCYTE ESTERASE ,URINE NEGATIVE (NEGATIVE); NITRITE,URINE NEGATIVE (NEGATIVE); PH,URINE 6.5 (5-9); PROTEIN,URINE 2+ (NEGATIVE)
[2021-04-27 11:48] LABS: BACTERIA,URINE NEGATIVE /HPF; WBC,URINE RARE /HPF
--- NOTE | 2021-04-27 12:04 | Diagnostic Imaging Report ---
CLINICAL INDICATION: Patient with high blood sugar and confused. EXAM: Axial CT scan of the brain performed without IV contrast. High-resolution axial CT brain images with sagittal and coronal reformations were also created. Auto Exposure Controls were utilized during the CT exam to meet ALARA standards for radiation dose reduction. COMPARISON: None. FINDINGS: There is no evidence of acute cerebral infarct, intracranial hemorrhage, or gross mass effect. There is no dense vessel sign. There is a 6 mm x 4 mm circumscribed low-density area involving the posterior external capsular region which may represent a prominent perivascular space versus area of chronic infarct. Otherwise, the remainder of the brain parenchyma is unremarkable for age. The brain parenchymal volume appears appropriate for patient's age. There is normal lennon-white matter distinction. There is no significant midline shift or herniation. There is no evidence of hydrocephalus. The basal cisterns are unremarkable. The skull, extracranial soft tissue, and orbits are unremarkable. There is mild mucosal thickening involving both maxillary sinuses. Temporal bones show no significant abnormality. IMPRESSION: 1: There is no evidence of acute intracranial process. There is no dense vessel sign seen. 2: Small prominent perivascular space versus chronic infarct in the posterior right external capsular region; otherwise, unremarkable CT scan of the brain for age. 3: Mild paranasal sinus disease. 4: The results of this report were discussed with Vladimir Rueda APRN, via the telephone on 04/27/2021 at 1200 hours. Dictated by: Dictated on workstation # [id number]
--- NOTE | 2021-04-27 12:05 | Diagnostic Imaging Report ---
INDICATION: Tachycardia Portable chest 11:49 AM Heart size and pulmonary vascularity are normal. Lungs are clear. There are no effusions or pneumothoraces. IMPRESSION: No acute abnormalities in the chest. Dictated by: Dictated on workstation # [id number]
--- NOTE | 2021-04-27 12:10 | ED General ---
General Chief Complaint: Glucose Problems Stated Complaint: HIGH BLOOD SUGAR Nursing Triage Note: PT TO RM 3 PER EMS, EMS CALLED BY CO WORKER, PT BS ELEVATED AND PT CONFUSED. PT REMAINS CONFUSED, BUT ALERT. PT IS INSULIN DEPENDANT DIABETIC SUGAR READS TO HIGH TO READ, PT HAS IV NS INFUSING IN L AC #18 BY EMS. PT HAS SURGICAL WOUND ON L FT DRAINING MOD AMT OF JOSHUA DRAINAGE, FOOT HAS 2 WOUNDS PACKED W PACKING, FOOT HAS LARGE AMOUNT OF EMACERATED NOTED. PT IS BLIND IN R EYE, BUT CO OF DIFFICULTY SEEING, PT DOES NOT KNOW AGE, OR AND IS NOT ABLE TO COMPLETE SENTENCES.PT HAS HAD 4MG ZOFRAN BY EMS Source of Information: Patient Exam Limitations: No Limitations History of Present Illness Date Seen by Provider: Apr 27, 2021 Time Seen by Provider: 09:23 Initial Comments This 45-year-old gentleman presents to the emergency room via EMS from his workplace where he was found slumped over his desk with significant decrease in alertness. Patient was able to answer questions but was a rather confused historian and seemed to have significant difficulty with memory. According to patient and his , he was at baseline status last night and was feeling well. As far as his is concerned, he was normal when she left the house around 06:15. She stated that he sent her a normal appearing text message at about 08:15 from work stating he had locked his keys in the car. Patient also complained of nausea and vomiting. He is a diabetic who uses sliding scale insulin. EMS reports blood sugar was undetectably high. Patient is also being treated for a chronic left foot infected diabetic ulcer by a binder coverstitch in [place]. We contacted the binder coverstitch office and discovered that he had cultures recently growing MRSA. Patient's stated she had no suspicion of drug or alcohol use and that he had no history of prior drug or alcohol use. However, after urinalysis was obtained we noted a positive THC on the urine drug screen. Patient was confronted and admitted that he had tried edible THC products a couple of times. The most recent usage was last night. Patient's believes this may have come from her sister who makes a THC butter. There was some concern for sepsis on presentation. Patient's states he has been septic from diabetic wounds in the past but has never had this type of altered mental status. Patient was also noted to be rather hypertensive intermittently with some systolic blood pressures measuring over 200. He was also tachycardic on arrival. In general he appeared in mild distress with discomfort, confusion, nausea, and vomiting upon arrival. Zofran 4 mg was administered by EMS but patient was still nauseous. Allergies and Home Medications Allergies Coded Allergies: Sulfa (Sulfonamide Antibiotics) (Verified Allergy, Unknown, 12/13/18) Patient Home Medication List Home Medication List Reviewed: Yes Buspirone HCl (Buspirone HCl) 5 Mg Tablet, 5 MG PO BID Prescribed by: JEREMIE SCHWAB on 12/14/17 1317 Cinnamon Bark (Cinnamon) 500 Mg Capsule, 500 MG PO DAILY, (Reported) Entered as Reported by: EVA ERWIN on 12/13/17 0949 Doxycycline Hyclate (Doxycycline Hyclate) 100 Mg Tablet, 100 MG PO BID Prescribed by: EDUARDO LONGO on 02/16/20 1454 Hydrocodone/Acetaminophen (Hydrocodone-Acetamin 5-325 mg) 1 Each Tablet, 1 EACH PO Q4H PRN for PAIN-MODERATE (5-7) Prescribed by: EDUARDO LONGO on 02/16/20 1454 Insulin Detemir (Levemir Flextouch) 100 Unit/1 Ml Insuln.pen, 20 UNIT SQ HS, (Reported) Entered as Reported by: EVA ERWIN on 12/13/17 0948 Insulin Detemir (Levemir Flextouch) 100 Unit/1 Ml Insuln.pen, 10 UNIT SQ DAILY, (Reported) Entered as Reported by: EVA ERWIN on 12/13/17 0949 Metformin HCl (Metformin HCl) 500 Mg Tablet, 500 MG PO BID WITH MEALS, (Reported) Entered as Reported by: EVA ERWIN on 06/07/17 0959 Metoclopramide HCl (Reglan) 5 Mg Tablet, 5 MG PO TID PRN for STOMACH UPSET, (Reported) Entered as Reported by: MUNIRA ENAMORADO on 07/19/17 1339 Minocycline HCl (Minocycline HCl) 100 Mg Capsule, 100 MG PO BID, (Reported) Entered as Reported by: EVA ERWIN on 12/13/17 0958 Ondansetron (Ondansetron Odt) 4 Mg Tab.rapdis, 4 MG PO Q6H PRN for NAUSEA/VOMITING Prescribed by: TIN AGUIRRE on 12/13/18 5678 Review of Systems Review of Systems Constitutional: see HPI, weakness EENTM: other (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) Respiratory: no symptoms reported Cardiovascular: see HPI Gastrointestinal: see HPI Musculoskeletal: see HPI Skin: see HPI Psychiatric/Neurological: See HPI Hematologic/Lymphatic: No Symptoms Reported Immunological/Allergic: no symptoms reported Past Pidtzun-Ncplxi-Qyjbyc Hx Patient Social History Tobacco Use?: No Substance use?: Yes Substance type: Marijuana (Edibles) Alcohol Use?: No Pt feels they are or have been: No Immunizations Up To Date Tetanus Booster (TDap): Unknown Influenza Vaccine Up-to-Date: Yes; Up-to-Date First/Initial COVID19 Vaccinat: 2020 Second COVID19 Vaccination Rai: 2020 Seasonal Allergies Seasonal Allergies: No Past Medical History Surgeries: Yes (R 3rd metatarsal amputation, abscess removed x2 right thigh) Amputation, Orthopedic Respiratory: No Cardiac: No Neurological: Yes Neuropathy Reproductive Disorders: No Genitourinary: No Gastrointestinal: No Musculoskeletal: Yes (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, history osteomyelitis) Amputee Endocrine: Yes Diabetes, Insulin dep HEENT: No Cancer: No Psychosocial: No Integumentary: Yes (chronic wound bottom R foot; ABSCESs) Blood Disorders: No Family Medical History Diabetes mellitus 19 FATHER 19 MOTHER G8 BROTHER FHx: supraventricular tachycardia 19 MOTHER Cancer, Diabetes Physical Exam-Suspected Sepsis Physical Exam Vital Signs Vital Signs - First Documented 04/27/21 09:20 Temp 35.8 Pulse 110 Resp 22 B/P (MAP) 185/102 (129) Pulse Ox 100 O2 Delivery Room Air Capillary Refill : Less Than 3 Seconds Blood Pressure Mean: 129 Height, Weight, BMI Height: 6'1.00" Weight: 221lbs. 6.4oz. 100.027810ko; 29.00 BMI Method:Stated General Appearance: WD/WN HEENT: PERRL/EOMI, Normal ENT Inspection Neck: Normal Inspection; No JVD Respiratory: Lungs Clear, Normal Breath Sounds, No Accessory Muscle Use Cardiovascular: No Edema, No Murmur, Tachycardia (Sinus) Gastrointestinal: Normal Bowel Sounds, Non Tender, Soft; No Distended Extremity: Other (Mild edema and erythema of the left foot associated with chronic wounds on the medial aspect) Neurologic/Psychiatric: Alert, No Motor/Sensory Deficits, Other (Somewhat disoriented and confused historian no other focal deficits appreciated on initial exam) Skin: normal color, warm/dry, other (See extremity exam) Focused Exam Lactate Level 04/27/21 09:25: Lactic Acid Level 2.55*H 04/27/21 11:25: Lactic Acid Level 1.78 Lactic Acid Level Progress/Results/Core Measures Suspected Sepsis SIRS Temperature: Pulse: 110 Respiratory Rate: 22 Laboratory Tests 04/27/21 09:25: White Blood Count 11.8H Blood Pressure 185 /102 Mean: 129 04/27/21 09:25: Lactic Acid Level 2.55*H 04/27/21 11:25: Lactic Acid Level 1.78 Laboratory Tests 04/27/21 09:25: Creatinine 2.02H, INR Comment 0.9, Platelet Count 414H, Total Bilirubin 0.4 Results/Orders Lab Results Laboratory Tests Test 04/27/21 09:25 04/27/21 09:56 04/27/21 10:55 04/27/21 11:25 Range/Units White Blood Count 11.8 H 4.3-11.0 10^3/uL Red Blood Count 3.74 L 4.30-5.52 10^6/uL Hemoglobin 10.7 L 13.3-17.7 g/dL Hematocrit 32 L 40-54 % Mean Corpuscular Volume 85 80-99 fL Mean Corpuscular Hemoglobin 29 25-34 pg Mean Corpuscular Hemoglobin Concent 34 32-36 g/dL Red Cell Distribution Width 13.2 10.0-14.5 % Platelet Count 414 H 130-400 10^3/uL Mean Platelet Volume 9.7 9.0-12.2 fL Immature Granulocyte % (Auto) 0 % Neutrophils (%) (Auto) 82 H 42-75 % Lymphocytes (%) (Auto) 10 L 12-44 % Monocytes (%) (Auto) 6 0-12 % Eosinophils (%) (Auto) 1 0-10 % Basophils (%) (Auto) 1 0-10 % Neutrophils # (Auto) 9.6 H 1.8-7.8 10^3/uL Lymphocytes # (Auto) 1.2 1.0-4.0 10^3/uL Monocytes # (Auto) 0.7 0.0-1.0 10^3/uL Eosinophils # (Auto) 0.1 0.0-0.3 10^3/uL Basophils # (Auto) 0.1 0.0-0.1 10^3/uL Immature Granulocyte # (Auto) 0.0 0.0-0.1 10^3/uL Prothrombin Time 12.9 12.2-14.7 SEC INR Comment 0.9 0.8-1.4 Activated Partial Thromboplast Time 33 24-35 SEC Sodium Level 125 *L 135-145 MMOL/L Potassium Level 4.6 3.6-5.0 MMOL/L Chloride Level 92 L 98-107 MMOL/L Carbon Dioxide Level 21 21-32 MMOL/L Anion Gap 12 5-14 MMOL/L Blood Urea Nitrogen 42 H 7-18 MG/DL Creatinine 2.02 H 0.60-1.30 MG/DL Estimat Glomerular Filtration Rate 41 BUN/Creatinine Ratio 21 Glucose Level 756 *H 70-105 MG/DL Lactic Acid Level 2.55 *H 1.78 0.50-2.00 MMOL/L Calcium Level 9.9 8.5-10.1 MG/DL Corrected Calcium 10.5 H 8.5-10.1 MG/DL Total Bilirubin 0.4 0.1-1.0 MG/DL Aspartate Amino Transf (AST/SGOT) 12 5-34 U/L Alanine Aminotransferase (ALT/SGPT) 13 0-55 U/L Alkaline Phosphatase 156 H 40-136 U/L C-Reactive Protein High Sensitivity 1.74 H 0.00-0.50 MG/DL Total Protein 7.5 6.4-8.2 GM/DL Albumin 3.2 3.2-4.5 GM/DL Procalcitonin 0.05 <0.10 NG/ML Urine Opiates Screen NEGATIVE NEGATIVE Urine Oxycodone Screen NEGATIVE NEGATIVE Urine Methadone Screen NEGATIVE NEGATIVE Urine Propoxyphene Screen NEGATIVE NEGATIVE Urine Barbiturates Screen NEGATIVE NEGATIVE Ur Tricyclic Antidepressants Screen NEGATIVE NEGATIVE Urine Phencyclidine Screen NEGATIVE NEGATIVE Urine Amphetamines Screen NEGATIVE NEGATIVE Urine Methamphetamines Screen NEGATIVE NEGATIVE Urine Benzodiazepines Screen NEGATIVE NEGATIVE Urine Cocaine Screen NEGATIVE NEGATIVE Urine Cannabinoids Screen POSITIVE H NEGATIVE Serum Alcohol < 10 <10 MG/DL Influenza Type A (RT-PCR) Not Detected Not Detecte Influenza Type B (RT-PCR) Not Detected Not Detecte SARS-CoV-2 RNA (RT-PCR) Not Detected Not Detecte Glucometer 465 *H 70-110 MG/DL Test 04/27/21 11:29 04/27/21 13:30 04/27/21 14:30 04/27/21 20:07 Range/Units Urine Color YELLOW Urine Clarity CLEAR Urine pH 6.5 5-9 Urine Specific [place] 1.015 L 1.016-1.022 Urine Protein 2+ H NEGATIVE Urine Glucose (UA) 3+ H NEGATIVE Urine Ketones NEGATIVE NEGATIVE Urine Nitrite NEGATIVE NEGATIVE Urine Bilirubin NEGATIVE NEGATIVE Urine Urobilinogen 0.2 < = 1.0 MG/DL Urine Leukocyte Esterase NEGATIVE NEGATIVE Urine RBC (Auto) 3+ H NEGATIVE Urine RBC 10-25 H /HPF Urine WBC RARE /HPF Urine Crystals NONE /LPF Urine Bacteria NEGATIVE /HPF Urine Casts NONE /LPF Urine Mucus NEGATIVE /LPF Urine Culture Indicated NO Glucometer 525 *H 401 *H 70-110 MG/DL CSF Tube Number 4 CSF Appearance CLEAR CSF Color COLORLESS CSF WBC 1 0-5 CELLS CSF RBC 3 H 0-0 CELLS CSF Lymphocytes % CSF Mononuclear WBCs % CSF Polynuclear WBCs % CSF Glucose 263 H 50-80 MG/DL CSF Total Protein 43 H 15-40 MG/DL Micro Results Microbiology 04/27/21 Gram Stain - Final, Resulted 04/27/21 CSF Culture, Resulted Pending My Orders Orders - RENATA METZGER MD Cbc With Automated Diff (04/27/21 09:37) Comprehensive Metabolic Panel (04/27/21 09:37) Blood Culture (04/27/21 09:37) Sputum Culture (04/27/21 09:37) Urinalysis (04/27/21 09:37) Urine Culture (04/27/21 09:37) Protime With Inr (04/27/21 09:37) Partial Thromboplastin Time (04/27/21 09:37) Chest 1 View, Ap/Pa Only (04/27/21 09:37) Ed Iv/Invasive Line Start (04/27/21 09:37) Ed Iv/Invasive Line Start (04/27/21 09:37) Vital Signs Adult Sepsis Patie Q15M (04/27/21 09:37) O2 (04/27/21 09:37) Remove Rings In Anticipation O (04/27/21 09:37) Lactic Acid Analyzer (04/27/21 09:37) Ekg Tracing (04/27/21 09:37) Monitor-Rhythm Ecg Trace Only (04/27/21 09:37) Hs C Reactive Protein (04/27/21 09:37) Procalcitonin (Pct) (04/27/21 09:37) Foot, Left, 2 View (04/27/21 09:37) Insulin (Regular) Human (Novolin R (Per (04/27/21 10:00) Famotidine Injection (Pepcid Injection) (04/27/21 10:00) Ondansetron Injection (Zofran Injectio (04/27/21 10:00) Accucheck Stat ONCE (04/27/21 09:54) Accucheck Stat ONCE (04/27/21 09:54) Accucheck Stat ONCE (04/27/21 09:54) Covid 19 Inhouse Test (04/27/21 10:17) Influenza A And B By Pcr (04/27/21 10:17) Ns Iv 1000 Ml (Sodium Chloride 0.9%) (04/27/21 11:15) Promethazine Injection (Phenergan Injec (04/27/21 11:30) Labetalol Injection (Normodyne Injection (04/27/21 11:30) Fentanyl Inj (Sublimaze Injection) (04/27/21 11:30) Ct Head Wo-R/O Stroke (04/27/21 11:24) Metoprolol Tartrate Injection (Lopressor (04/27/21 11:26) Fentanyl Inj (Sublimaze Injection) (04/27/21 11:26) Alcohol (04/27/21 13:28) Drug Screen Stat (Urine) (04/27/21 13:28) Vancomycin Injection (Vancomycin Injecti (04/27/21 13:45) Piperacillin Sodium/Tazobactam (Zosyn Vi (04/27/21 13:45) Insulin (Regular) Human (Novolin R (Per (04/27/21 13:45) Vancomycin Injection (Vancomycin Injecti (04/27/21 14:00) Ondansetron Injection (Zofran Injectio (04/27/21 14:00) Promethazine Injection (Phenergan Injec (04/27/21 14:00) Csf Cell Count (04/27/21 14:36) Csf Glucose (04/27/21 14:36) Csf Total Protein (04/27/21 14:36) Csf Culture (04/27/21 14:36) Lorazepam Injection (Ativan Injection) (04/27/21 15:00) Mri Brain W/O Contrast (04/27/21 14:57) Mra Head W/O Contrast (04/27/21 14:57) Us Carotid Marcia Complete 60216 (04/27/21 14:57) Haloperidol Injection (Haldol Injectio (04/27/21 15:45) Accucheck Stat ONCE (04/27/21 16:01) Medications Given in ED Current Medications Medications Dose Ordered Sig/Amy Route Start Time Stop Time Status Last Admin Dose Admin Famotidine 20 mg ONCE ONCE IVP 04/27/21 10:00 04/27/21 10:01 DC 04/27/21 09:54 20 MG Fentanyl Citrate 50 mcg ONCE ONCE IVP 04/27/21 11:30 04/27/21 11:31 DC 04/27/21 11:29 50 MCG Haloperidol Lactate 2.5 mg ONCE ONCE IV 04/27/21 15:45 04/27/21 15:46 DC 04/27/21 15:52 2.5 MG Insulin Human Regular 5 unit ONCE ONCE IV 04/27/21 10:00 04/27/21 10:01 DC 04/27/21 09:53 5 UNIT Insulin Human Regular 10 unit ONCE ONCE SC 04/27/21 13:45 04/27/21 13:46 DC 04/27/21 14:10 10 UNIT Labetalol HCl 10 mg ONCE ONCE IV 04/27/21 11:30 04/27/21 11:31 DC 04/27/21 11:34 10 MG Ondansetron HCl 4 mg ONCE ONCE IVP 04/27/21 10:00 04/27/21 10:01 DC 04/27/21 09:53 4 MG Ondansetron HCl 4 mg ONCE ONCE IVP 04/27/21 14:00 04/27/21 14:01 DC 04/27/21 14:05 4 MG Piperacillin Sod/ Tazobactam Sod 4.5 gm/Sodium Chloride 100 ml @ 200 mls/hr ONCE ONCE IV 04/27/21 13:45 04/27/21 14:14 DC 04/27/21 14:12 200 MLS/HR Promethazine HCl 12.5 mg ONCE ONCE IVP 04/27/21 11:30 04/27/21 11:31 DC 04/27/21 11:20 12.5 MG Promethazine HCl 12.5 mg ONCE ONCE IVP 04/27/21 14:00 04/27/21 14:01 DC 04/27/21 14:05 12.5 MG Vital Signs/I&O 04/27/21 04/27/21 04/27/21 04/27/21 09:20 18:17 19:00 19:00 Temp 35.8 Pulse 110 107 105 105 Resp 22 16 14 B/P (MAP) 185/102 (129) 155/83 161/94 Pulse Ox 100 96 96 O2 Delivery Room Air Room Air 04/27/21 04/27/21 04/27/21 04/27/21 19:15 19:30 19:45 20:00 Temp 36.8 Pulse 105 105 103 Resp 16 17 15 B/P (MAP) 154/89 155/90 156/94 Pulse Ox 96 96 95 O2 Delivery Room Air Room Air Room Air 04/27/21 20:00 Pulse 101 Resp 15 B/P (MAP) 163/92 Pulse Ox 97 O2 Delivery Room Air Capillary Refill : Less Than 3 Seconds Blood Pressure Mean: 129 Point of Care Testing Finger Stick Blood Glucose: 465 Blood Glucose Action Taken: TO HIGH TO READ ON GLUECOMETER Progress Note : Time: 14:21 Progress Note Patient was treated with IV fluids as well as Zofran. He continued to have vomiting. He was additionally treated with Phenergan. He still had refractory vomiting even after Phenergan. Eventually Haldol was ordered after the discovery of THC edible consumption. IV fluids were infused along with regular insulin 5 units by IV route. A second liter of normal saline was additionally infused and he was then also given regular insulin 10 units subcutaneously. Blood sugar overall was trending down during the ER stay. Patient continued to have altered mental status and difficulty with nausea and vomiting. Sepsis was a consideration but labs did not seem consistent with severe sepsis. Due to the infection on his foot and known MRSA, he was treated with Zosyn and vancomycin after blood cultures were obtained. Patient did develop significant headache that required treatment with fentanyl. Because of the altered mental status in conjunction with headache and this susceptible diabetic with markedly elevated blood sugar, meningitis became a consideration. LP was performed by Dr. Chaney. CSF studies were not consistent with meningitis. CT of the head did not reveal any significant abnormalities. I discussed the case with stroke neurologist Dr. Fonseca at [facility] who recommended further imaging with MRI/MRA to rule out stroke. This was also discussed with Dr. Gomez who is agreeable. MRI demonstrated some nonacute white matter changes that were likely not contributory to his acute illness. Ultrasound of the carotid arteries was also obtained and showed no stenosis or occlusion. Ultimately patient was admitted to the ICU to Dr. Wood's service. He was in stable condition. His altered mental status was thought to be multifactorial with contributing factors including THC use, severe hyperglycemia, and chronic wound infection with possible sepsis. ECG Initial ECG Impression Date: Apr 27, 2021 Initial ECG Impression Time: 09:29 Initial ECG Rate: 106 Initial ECG Rhythm: S.Tach Comment Sinus tachycardia with no ST elevation or depression. No abnormal intervals or axis deviation. Diagnostic Imaging Diagonstic Imaging: CT Plain Films/CT/US/NM/MRI: head Comments CT head viewed by me and report reviewed. Discussed with Dr. Gomez. See report below: NAME: CHETNA BRENNER [facility] REC#: [id number] PT STATUS: REG ER : 1975 PHYSICIAN: RENATA METZGER MD ADMIT DATE: 04/27/21/ER Draft Date of Exam:04/27/21 CT HEAD WO-R/O STROKE CLINICAL INDICATION: Patient with high blood sugar and confused. EXAM: Axial CT scan of the brain performed without IV contrast. High-resolution axial CT brain images with sagittal and coronal reformations were also created. Auto Exposure Controls were utilized during the CT exam to meet ALARA standards for radiation dose reduction. COMPARISON: None. FINDINGS: There is no evidence of acute cerebral infarct, intracranial hemorrhage, or gross mass effect. There is no dense vessel sign. There is a 6 mm x 4 mm circumscribed low-density area involving the posterior external capsular region which may represent a prominent perivascular space versus area of chronic infarct. Otherwise, the remainder of the brain parenchyma is unremarkable for age. The brain parenchymal volume appears appropriate for patient's age. There is normal warren-white matter distinction. There is no significant midline shift or herniation. There is no evidence of hydrocephalus. The basal cisterns are unremarkable. The skull, extracranial soft tissue, and orbits are unremarkable. There is mild mucosal thickening involving both maxillary sinuses. Temporal bones show no significant abnormality. IMPRESSION: 1: There is no evidence of acute intracranial process. There is no dense vessel sign seen. 2: Small prominent perivascular space versus chronic infarct in the posterior right external capsular region; otherwise, unremarkable CT scan of the brain for age. 3: Mild paranasal sinus disease. 4: The results of this report were discussed with Eduardo Longo APRN, via the telephone on 04/27/2021 at 1200 hours. Dictated on workstation # [id number] Dict: 04/27/21 1149 Trans: 04/27/21 1203 [id number] Interpreted by: SOPHIE RICHARD MD Diagonstic Imaging: Xray Plain Films/CT/US/NM/MRI: chest Comments Chest x-ray viewed by me and report reviewed. See report below: NAME: JORDINCHETNA D [facility] REC#: [id number] PT STATUS: REG ER : 1975 PHYSICIAN: RENATA METZGER MD ADMIT DATE: 04/27/21/ER Signed Date of Exam:04/27/21 CHEST 1 VIEW, AP/PA ONLY INDICATION: Tachycardia Portable chest 11:49 AM Heart size and pulmonary vascularity are normal. Lungs are clear. There are no effusions or pneumothoraces. IMPRESSION: No acute abnormalities in the chest. Dictated by: Dictated on workstation # [id number] Dict: 04/27/21 1203 Trans: 04/27/21 1224 [facility] [id number] Interpreted by: NOAH SAMANO MD Electronically signed by: NOAH SAMANO MD 04/27/21 1224 Diagonstic Imaging: Xray Plain Films/CT/US/NM/MRI: other (Left foot) Comments Foot x-rays reviewed by me and report reviewed. See report below: NAME: CHETNA BRENNER [facility] REC#: [id number] PT STATUS: REG ER : 1975 PHYSICIAN: RENATA METZGER MD ADMIT DATE: 04/27/21/ER Signed Date of Exam:04/27/21 FOOT, LEFT, 2 VIEW INDICATION: Left foot pain. FINDINGS: Two views of the left foot show no fracture, dislocation, or other acute abnormalities. IMPRESSION: Negative left foot. Dictated by: Dictated on workstation # [id number] Dict: 04/27/21 1204 Trans: 04/27/21 1224 [id number] Interpreted by: NOAH SAMANO MD Electronically signed by: NOAH SAMANO MD 04/27/21 1224 Diagonstic Imaging: Ultrasound Comments Carotid ultrasound discussed with drafting technician and report reviewed. See report below: NAME: CHETNA BRENNER [facility] REC#: [id number] PT STATUS: REG ER : 1975 PHYSICIAN: RENATA METZGER MD ADMIT DATE: 04/27/21/ER Signed Date of Exam:04/27/21 US CAROTID MARCIA COMPLETE [id number] PROCEDURE: US carotid duplex, bilateral. TECHNIQUE: Multiple real-time grayscale images were obtained over the carotid arteries in various projections, bilaterally. Additional spectral analysis and color Doppler duplex images were also obtained. INDICATION: Stroke. FINDINGS: There are no focally elevated velocities in either internal carotid artery. The ICA/CCA ratios are within normal limits, bilaterally. There is antegrade flow in the vertebral arteries, bilaterally. Grayscale images demonstrate minimal carotid plaque, bilaterally. IMPRESSION: Minimal bilateral carotid plaque however spectral analysis shows no evidence of a hemodynamically significant stenosis in either internal carotid artery. Parameters based on the consensus panel Warren-Scale and Doppler ultrasound criteria published December 2002, Radiology, Volume 229. DOPPLER (peak systolic velocity M/S Right Left CCA .86 .80 ICA Proximal .32 .76 ICA Mid .45 .59 ICA Distal .50 .79 RATIO .58 .99 ECA 1.2 .91 VERT .30 .44 Dictated by: Dictated on workstation # [id number] Dict: 04/27/21 1611 Trans: 04/27/21 1612 [id number] Interpreted by: FAIZAN HERNANDEZ MD Electronically signed by: FAIZAN HERNANDEZ MD 04/27/21 6183 Diagonstic Imaging: MRI Plain Films/CT/US/NM/MRI: head Comments MRI/MRA of the head report reviewed. See report below: NAME: CHETNA BRENNER [facility] REC#: [id number] PT STATUS: REG ER : 1975 PHYSICIAN: RENATA METZGER MD ADMIT DATE: 04/27/21/ER Signed Date of Exam:04/27/21 MRI BRAIN W/O CONTRAST CLINICAL INDICATION: Possible stroke, stroke-like symptoms. Patient with high blood pressure and confused. EXAMS: 1: MRI of the brain performed without IV contrast. Sequences include axial DWI, ADC map, axial T2, axial T1, axial FLAIR, axial gradient echo, and sagittal T1. 2: MRA of the [place] without contrast using 3-D eoak-ic-syalqa. Rotating 3-D MIP images were created. COMPARISON: Head CT without contrast dated 04/27/2021. FINDINGS: MRI OF THE BRAIN: There is no evidence of acute cerebral infarct, intracranial hemorrhage, brain herniation, or midline shift. There are multiple focal and mildly confluent areas of high T2 signal white matter changes involving both cerebral hemispheres and periventricular regions. Mildly prominent perivascular spaces in the bilateral basal ganglia regions are noted. The area previously described on the prior head CT in the right external capsule region likely represents prominent perivascular space. There is no hydrocephalus. Basal cisterns are unremarkable. The [place] vascular structures show no gross abnormality as visualized. The pituitary gland, sella, and suprasellar regions are unremarkable as visualized. The extracranial soft tissue, skull, and orbits are unremarkable. There is mild mucosal thickening involving the left maxillary sinus. Mastoid air cells are clear. MRA OF THE [place]: Of note, the proximal intracranial vertebral arteries are not completely imaged on this exam. The visualized intradural bilateral vertebral arteries, basilar artery, bilateral superior cerebellar arteries, and bilateral [place] FEEDER are patent. The petrous, cavernous, and supraclinoid ICA are patent. The bilateral ACAs and bilateral MCAs and distal branches are patent. IMPRESSION: MRI Brain: 1: There is no evidence of acute intracranial process. There is no intracranial hemorrhage, brain herniation, or hydrocephalus. 2: There are multiple focal and mildly confluent areas involving white matter of both cerebral hemispheres and periventricular regions, which appear advanced for patient's age. These may be related to early chronic small vessel ischemic changes. Although this does not have the typical appearance of a demyelinating process, this also should be excluded. 3: There is mild left maxillary sinus disease. MRA [place]: Unremarkable MRA of the [place] with no large vessel occlusion, significant stenosis, vascular malformation, or aneurysm, as visualized. Dictated by: Dictated on workstation # [id number] Dict: 04/27/21 1629 Trans: 04/27/21 1706 [id number] Interpreted by: SOPHIE RICHARD MD Electronically signed by: SOPHIE RICHARD MD 04/27/216 Departure Communication (Admissions) Time/Spoke to Admitting Phy: 17:15 Dr. 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 Referrals: JEREMIE SCHWAB MD (PCP/Family) Primary Care Physician Copy Copies To 1: JEREMIE SCHWAB MD Stroke NIH Stroke Scale Assessment Level of Consciousness: 0=Alert (0), Level of Consciousness-Questions: 1=Answers one question (1), LOC Commands: 0=Performs both tasks (0), Visual Mims: 0=No visual loss (0), Facial Movement (Facial Paresis): 0=Normal symmetrical mnt (0), Motor Function-Arms Right: 0=No drift (0), Motor Function-Arms Left: 0=No drift (0), Motor Function-Legs Right: 0=No drift (0), Limb Ataxia: 0=Absent (0), Sensory: 0=Normal:no loss (0), Best Language: 1=Mild to moderat aphasia (1), Dysarthria: 1=Mild to moderate loss (1), Extinction & Inattention: 1=Visual,tactile,auditory (1), Total: 4 RENATA METZGER MD Apr 27, 2021 12:10
[2021-04-27] MEDS ORDERED: inSUlin (REGULAR) HUMAN 1 UNIT/0.01 ML (CHARGE PER UNIT) SC ONE (13:45)
[2021-04-27] MEDS ORDERED: VANCOMYCIN INJECTION 1,000 MG in NS (IVPB) 250 ML IV SCH (13:45)
[2021-04-27] MEDS ORDERED: PIPERACILLIN SODIUM/TAZOBACTAM 4.5 GM in NS (IVPB) 100 ML IV ONE (13:45)
[2021-04-27 13:53] LABS: AMPHETAMINE SCREEN, URINE NEGATIVE (NEGATIVE); BARBITURATE SCREEN URINE NEGATIVE (NEGATIVE); BENZODIAZEPINES SCREEN URINE NEGATIVE (NEGATIVE); CANNABINOID SCREEN, URINE POSITIVE (NEGATIVE); COCAINE SCREEN URINE NEGATIVE (NEGATIVE); METHADONE STAT NEGATIVE (NEGATIVE); METHAMPHETAMINE SCREEN URINE S NEGATIVE (NEGATIVE); OPIATE SCREEN URINE NEGATIVE (NEGATIVE); OXYCODONE STAT NEGATIVE (NEGATIVE); PROPOXYPHENE STAT NEGATIVE (NEGATIVE); TRICYCLIC ANTIDEPRESSANTS SCRE NEGATIVE (NEGATIVE)
[2021-04-27] MEDS ORDERED: VANCOMYCIN 2000 MG/NS 500 ML IVPB IV NR ×2 (14:00)
[2021-04-27 15:00] LABS: APPEARANCE,CSF CLEAR; COLOR,CSF COLORLESS
[2021-04-27] MEDS ORDERED: LORazepam INJ 2 MG/ML (ATIVAN) VIAL IVP ONE (15:00)
[2021-04-27 15:01] LABS: RED BLOOD CELL,CSF 3 CELLS (0-0); WHITE BLOOD CELL,CSF 1 CELLS (0-5)
[2021-04-27 15:15] LABS: CSF GLUCOSE 263 MG/DL (50-80)
[2021-04-27 15:21] LABS: CSF TOTAL PROTEIN 43 MG/DL (15-40)
[2021-04-27 15:24] LABS: CSF TUBE NUMBER 4
--- NOTE | 2021-04-27 15:37 | Anesthesia-Procedure Note ---
Procedures/Interventions Procedure Start/Stop/Diagnosis Date of Procedure: Apr 27, 2021 Start Time: 14:15 Referring Physician: Dr Glover Preprocedural Diagnosis: Elevated Blood Glucose, Mental Status Change, Wound Lt Foot, Headache Brief History Called to the ER for a diagnositic Lumbar Puncture per Dr Glover. Brief history obtained from Dr Glover and patients : EMS called to patients work for confusion. BG 756 on arrival to ER. Also hyponatremic with elevated BUN/Cr. He was a wound on his left foot and C/O headache onset in the ER in addition to his confusion. WBC 11.8 and Plt count 414. Lumbar puncture procedure described to , who is a nurse and familiar with the procedure. All ?'s answered and consent signed. Stop Time: 14:40 Postprocedural Diagnosis: Same Lumbar Puncture Discussed Risk,Benefits: Yes Patient Consents: Yes Position: L3-4, Left Sterile Technique: Yes (ChloraPrep and drape) Opening Pressure: 22 cm CSF Fluid Color: clear Spinal Needle Used: Other (22 G Quinke 5 inch) Procedure Notes See above for procedure details. Pt with uncontrolled shaking movements throughout the procedure. Localized at L3-4 and only had bony contact with a 22 G Jiang needle. Relocalized at L2-3 and used Quinke needle. + clear CSF after multiple redirects. ~2 ml csf times 4 vials sent to the lab per Dr Glover's orders. Sterile bandage applied. Pt tolerated the procedure well in spite of his confusion and movement. Will be available if needed. REMBERTO KATZ DO Apr 27, 2021 15:37
[2021-04-27] MEDS ORDERED: HALOPERIDOL 5 MG/ML (HALDOL) VIAL IV ONE (15:45)
--- NOTE | 2021-04-27 16:12 | Diagnostic Imaging Report ---
PROCEDURE: US carotid duplex, bilateral. TECHNIQUE: Multiple real-time grayscale images were obtained over the carotid arteries in various projections, bilaterally. Additional spectral analysis and color Doppler duplex images were also obtained. INDICATION: Stroke. FINDINGS: There are no focally elevated velocities in either internal carotid artery. The ICA/CCA ratios are within normal limits, bilaterally. There is antegrade flow in the vertebral arteries, bilaterally. Grayscale images demonstrate minimal carotid plaque, bilaterally. IMPRESSION: Minimal bilateral carotid plaque however spectral analysis shows no evidence of a hemodynamically significant stenosis in either internal carotid artery. Parameters based on the consensus panel Warren-Scale and Doppler ultrasound criteria published December 2002, Radiology, Volume 229. DOPPLER (peak systolic velocity M/S Right Left CCA .86 .80 ICA Proximal .32 .76 ICA Mid .45 .59 ICA Distal .50 .79 RATIO .58 .99 ECA 1.2 .91 VERT .30 .44 Dictated by: Dictated on workstation # [id number]
--- NOTE | 2021-04-27 16:47 | Diagnostic Imaging Report ---
CLINICAL INDICATION: Possible stroke, stroke-like symptoms. Patient with high blood pressure and confused. EXAMS: 1: MRI of the brain performed without IV contrast. Sequences include axial DWI, ADC map, axial T2, axial T1, axial FLAIR, axial gradient echo, and sagittal T1. 2: MRA of the [place] without contrast using 3-D [id number]. Rotating 3-D MIP images were created. COMPARISON: Head CT without contrast dated 04/27/2021. FINDINGS: MRI OF THE BRAIN: There is no evidence of acute cerebral infarct, intracranial hemorrhage, brain herniation, or midline shift. There are multiple focal and mildly confluent areas of high T2 signal white matter changes involving both cerebral hemispheres and periventricular regions. Mildly prominent perivascular spaces in the bilateral basal ganglia regions are noted. The area previously described on the prior head CT in the right external capsule region likely represents prominent perivascular space. There is no hydrocephalus. Basal cisterns are unremarkable. The [place] vascular structures show no gross abnormality as visualized. The pituitary gland, sella, and suprasellar regions are unremarkable as visualized. The extracranial soft tissue, skull, and orbits are unremarkable. There is mild mucosal thickening involving the left maxillary sinus. Mastoid air cells are clear. MRA OF THE [place]: Of note, the proximal intracranial vertebral arteries are not completely imaged on this exam. The visualized intradural bilateral vertebral arteries, basilar artery, bilateral superior cerebellar arteries, and bilateral FINANCIAL REPORTING SPECIALIST are patent. The petrous, cavernous, and supraclinoid ICA are patent. The bilateral ACAs and bilateral MCAs and distal branches are patent. IMPRESSION: MRI Brain: 1: There is no evidence of acute intracranial process. There is no intracranial hemorrhage, brain herniation, or hydrocephalus. 2: There are multiple focal and mildly confluent areas involving white matter of both cerebral hemispheres and periventricular regions, which appear advanced for patient's age. These may be related to early chronic small vessel ischemic changes. Although this does not have the typical appearance of a demyelinating process, this also should be excluded. 3: There is mild left maxillary sinus disease. MRA [place]: Unremarkable MRA of the [place] with no large vessel occlusion, significant stenosis, vascular malformation, or aneurysm, as visualized. Dictated by: Dictated on workstation # [id number]
--- NOTE | 2021-04-27 17:07 | Diagnostic Imaging Report ---
CLINICAL INDICATION: Possible stroke, stroke-like symptoms. Patient with high blood pressure and confused. EXAMS: 1: MRI of the brain performed without IV contrast. Sequences include axial DWI, ADC map, axial T2, axial T1, axial FLAIR, axial gradient echo, and sagittal T1. 2: MRA of the [place] without contrast using 3-D [id number]. Rotating 3-D MIP images were created. COMPARISON: Head CT without contrast dated 04/27/2021. FINDINGS: MRI OF THE BRAIN: There is no evidence of acute cerebral infarct, intracranial hemorrhage, brain herniation, or midline shift. There are multiple focal and mildly confluent areas of high T2 signal white matter changes involving both cerebral hemispheres and periventricular regions. Mildly prominent perivascular spaces in the bilateral basal ganglia regions are noted. The area previously described on the prior head CT in the right external capsule region likely represents prominent perivascular space. There is no hydrocephalus. Basal cisterns are unremarkable. The [place] vascular structures show no gross abnormality as visualized. The pituitary gland, sella, and suprasellar regions are unremarkable as visualized. The extracranial soft tissue, skull, and orbits are unremarkable. There is mild mucosal thickening involving the left maxillary sinus. Mastoid air cells are clear. MRA OF THE [place]: Of note, the proximal intracranial vertebral arteries are not completely imaged on this exam. The visualized intradural bilateral vertebral arteries, basilar artery, bilateral superior cerebellar arteries, and bilateral APPLE THINNER are patent. The petrous, cavernous, and supraclinoid ICA are patent. The bilateral ACAs and bilateral MCAs and distal branches are patent. IMPRESSION: MRI Brain: 1: There is no evidence of acute intracranial process. There is no intracranial hemorrhage, brain herniation, or hydrocephalus. 2: There are multiple focal and mildly confluent areas involving white matter of both cerebral hemispheres and periventricular regions, which appear advanced for patient's age. These may be related to early chronic small vessel ischemic changes. Although this does not have the typical appearance of a demyelinating process, this also should be excluded. 3: There is mild left maxillary sinus disease. MRA [place]: Unremarkable MRA of the [place] with no large vessel occlusion, significant stenosis, vascular malformation, or aneurysm, as visualized. Dictated by: Dictated on workstation # [id number]
[2021-04-27 18:17] VITALS: BP 155/83
[2021-04-27] MEDS ORDERED: CATHETER FLUSH 10 ML SYR IVP PRN (19:00)
[2021-04-27] MEDS ORDERED: ONDANSETRON 4 MG/2 ML (SDV) Z0FRAN IV PRN (19:00)
[2021-04-27] MEDS ORDERED: HALOPERIDOL 5 MG/ML (HALDOL) VIAL IV PRN (19:00)
--- NOTE | 2021-04-27 19:22 | Tele-ICU Consult ---
History of Present Illness History of Present Illness Date Seen by Provider: Apr 27, 2021 Time Seen by Provider: 18:50 Date of Admission (Tele-ICU Physician , consultation) Resting comfortably. VSS 155/89. Cheat clear. No Lentz S1S2 RRR No edema. Available chart/ vitals / labs / Images reviewed H&P is from ER notes Patient's information available about PMH, Shx, Fhx allergy reviewed in EMR. ROS as per chart and RN report Now in ICU, hemodynamically stable Video assessment done using teleICU camera, rest of exam as per RN Discussed with RN. Consultants: Hospital course: 04/27 - ER -> ICU with left foot infection , AURY , hyperglycemia A/P Hyperglycemia, HHS - AURY - dehydration, HTN - cont IVF - follow closely Leukocytosis , LEFT FOOT INFECTION -chest x-ray was normal , UA unremarkable , NEG covid and flu - ? osteo of left foot - as per queta RICCI exam /eval - empiric ABX Zosyn and VAnco started HTN: PRN - Pseudo Hyponatremia - follow Encephalopathy -TME and HTN - CTH - no acute findings - MRI head - early chronic small vessel ischemic changes, no large vessel occlusion, significant stenosis Anemia -chronic , follow Lines : (Central Line Necessity Reviewed) Lentz: void OG: Nutrition: Analgesia: Anxiety/ delirium : Haldol PRN. VTE Prophylaxis: Ella. Stress Ulcer Prophylaxis: PPI. Plans in collaboration with bedside consultants and IM MDs. Discussed with RN to reach out if any questions or concerns A total of 25 minutes of critical care time was devoted to this patient today, required to treat and/or prevent further deterioration of critical care condition ( as above ) . Allergies and Home Medications Allergies Coded Allergies: Sulfa (Sulfonamide Antibiotics) (Verified Allergy, Unknown, 12/13/18) Home Medications Buspirone HCl 5 Mg Tablet, 5 MG PO BID Prescribed by: JEREMIE SCHWAB on 12/14/17 1317 Cinnamon Bark 500 Mg Capsule, 500 MG PO DAILY, (Reported) Doxycycline Hyclate 100 Mg Tablet, 100 MG PO BID Prescribed by: EDUARDO LONGO on 02/16/20 1454 Hydrocodone/Acetaminophen 1 Each Tablet, 1 EACH PO Q4H PRN for PAIN-MODERATE (5- 7) Prescribed by: EDUARDO LONGO on 02/16/20 1454 Insulin Detemir 100 Unit/1 Ml Insuln.pen, 20 UNIT SQ HS, (Reported) Insulin Detemir 100 Unit/1 Ml Insuln.pen, 10 UNIT SQ DAILY, (Reported) Metformin HCl 500 Mg Tablet, 500 MG PO BID WITH MEALS, (Reported) Metoclopramide HCl 5 Mg Tablet, 5 MG PO TID PRN for STOMACH UPSET, (Reported) Minocycline HCl 100 Mg Capsule, 100 MG PO BID, (Reported) 5 DAY THEARPY PICKED UP 12-12-17 Ondansetron 4 Mg Tab.rapdis, 4 MG PO Q6H PRN for NAUSEA/VOMITING Prescribed by: TIN AGUIRRE on 12/13/18 1458 Past Medical/Social/Family Hx Patient Social History Tobacco Use?: No Substance use?: No Alcohol Use?: No Pt stated abuse/neglect: No Immunizations Up To Date Influenza Vaccine Up-to-Date: Yes; Up-to-Date First/Initial COVID19 Vaccinat: 2020 Second COVID19 Vaccination Rai: 2020 Tetanus Booster (TDap): Unknown Current Status Advance Directives: No Communicates: Verbally Primary Language: Malian Preferred Spoken Language: Malian Is interpretation needed?: No Sensory deficits: Vision impairment 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 6.4oz. 100.670891ti; 29.00 BMI Method:Stated Exam Exam Patient acknowledged, consented, and participated in this virtual visit which was conducted using real time audio/video Vital Signs Date Time Temp Pulse Resp B/P (MAP) Pulse Ox O2 Delivery O2 Flow Rate FiO2 04/27/21 18:17 107 16 155/83 96 04/27/21 09:20 35.8 110 22 185/102 (129) 100 Room Air Height & Weight Height: 6'1.00" Weight: 221lbs. 6.4oz. 100.106770rd; 29.00 BMI Method:Stated General Appearance: No Apparent Distress (See free text) Capillary Refill: Less Than 3 Seconds Peripheral Pulses: 1+ Dorsalis Pedis (R), 1+ Left Dors-Pedis (L) Results Lab Laboratory Tests 04/27/21 09:25 Assessment/Plan Assessment/Plan See free text Critical Care: Critically Ill Patient CAMPOS YOON MD Apr 27, 2021 19:22
[2021-04-27] MEDS ORDERED: ENOXAPARIN 40 MG/0.4 ML (LOVENOX) SYR SC SCH (19:30)
[2021-04-27] MEDS: LACTATED RINGERS 1,000 ML IV SCH (20:52)
[2021-04-27] MEDS: PIPERACILLIN SODIUM/TAZOBACTAM 4.5 GM in NS (IVPB) 100 ML IV SCH (20:54)
[2021-04-27] MEDS ORDERED: inSUlin ASPART (NovoLOG) 1 UNIT/0.01 ML (CHARGE PER UNIT) SC SCH (21:00)
[2021-04-28] MEDS: inSUlin ASPART (NovoLOG) 1 UNIT/0.01 ML (CHARGE PER UNIT) SC SCH ×4 (00:21→12:13)
[2021-04-28] MEDS: LACTATED RINGERS 1,000 ML IV SCH ×3 (03:37→10:31)
[2021-04-28 04:52] LABS: BASOPHILS # (AUTO) 0.1 10^3/uL (0.0-0.1); BASOPHILS % (AUTO) 1 % (0-10); EOSINOPHILS # (AUTO) 0.2 10^3/uL (0.0-0.3); EOSINOPHILS % (AUTO) 2 % (0-10); HEMATOCRIT 28 % (40-54); HEMOGLOBIN 9.2 g/dL (13.3-17.7); LYMPHOCYTES # (AUTO) 1.2 10^3/uL (1.0-4.0); LYMPHOCYTES % (AUTO) 12 % (12-44); MEAN CORPUSCULAR HEMOGLOBIN 29 pg (25-34); MEAN CORPUSCULAR HGB CONC 33 g/dL (32-36); MEAN CORPUSCULAR VOLUME 86 fL (80-99); MEAN PLATELET VOLUME 9.6 fL (9.0-12.2); MONOCYTES # (AUTO) 0.8 10^3/uL (0.0-1.0); MONOCYTES % (AUTO) 8 % (0-12); NEUTROPHILS # (AUTO) 7.9 10^3/uL (1.8-7.8); NEUTROPHILS % (AUTO) 78 % (42-75); PLATELET COUNT 370 10^3/uL (130-400); WHITE BLOOD COUNT 10.2 10^3/uL (4.3-11.0)
[2021-04-28] MEDS: PIPERACILLIN SODIUM/TAZOBACTAM 4.5 GM in NS (IVPB) 100 ML IV SCH (04:58)
[2021-04-28 05:00] LABS: ALBUMIN 2.5 GM/DL (3.2-4.5)
[2021-04-28 05:01] LABS: POTASSIUM 3.5 MMOL/L (3.6-5.0)
[2021-04-28 05:05] LABS: BILIRUBIN,TOTAL 0.3 MG/DL (0.1-1.0)
[2021-04-28 05:06] LABS: PHOSPHORUS 4.2 MG/DL (2.3-4.7)
[2021-04-28 05:07] LABS: CREATININE SERUM 1.94 MG/DL (0.60-1.30)
[2021-04-28 05:10] LABS: MAGNESIUM 1.7 MG/DL (1.6-2.4)
[2021-04-28] MEDS ORDERED: MAGNESIUM 1 GM/100 ML IVPB 100 ML IV SCH (06:00)
[2021-04-28] MEDS ORDERED: POTASSIUM CL 10MEQ/50ML IVPB 50 ML IV SCH (06:00)
[2021-04-28] MEDS ORDERED: KCL 20 MEQ TAB (K-DUR) PO SCH (06:00)
[2021-04-28] MEDS ORDERED: IBUPROFEN 600 MG (MOTRIN) TAB PO PRN (08:30)
--- NOTE | 2021-04-28 08:35 | Short Stay Summary-Hospitalist ---
History of Present Illness HPI/Chief Complaint Is a 45-year-old male with past medical history of insulin-dependent diabetes type 2, hypertension, chronic osteomyelitis who presented to the emergency department due to confusion. He states he was at work and became very confused and did not know who he was or where he was. An ambulance was called to bring him in for evaluation. He was activated as a code stroke and a CT head was done and was negative. He remained quite obtunded and LP was done in the ER. He also had an MRI of his head. After this extensive work-up he admitted to having a "special brownie" which is atypical for him. He also complained of nausea and vomiting which responded to Phenergan and Haldol though those did make him quite drowsy. He was admitted to the ICU overnight for monitoring. This morning he states he is feeling nearly back to normal though has a headache. Source: patient Date Seen 04/28/21 Time Seen by a Provider: 08:28 Attending Physician Franco Wood MD PCP Telly Young MD Referring Physician Date of Admission Apr 27, 2021 at 17:23 Home Medications & Allergies Home Medications Reviewed patient Home Medication Reconciliation performed by pharmacy medication reconciliations audio video technician and/or nursing. Patients Allergies have been reviewed. Allergies Allergies Coded Allergies Sulfa (Sulfonamide Antibiotics) (Verified Allergy, Unknown, 12/13/18) Past Hesmdnv-Tzonzn-Qgebol Hx Patient Social History Marrital Status: Employed/Student: employed Tobacco Use?: No Substance use?: Yes Substance type: Marijuana (Edibles) Alcohol Use?: No Pt feels they are or have been: No Immunizations Up To Date First/Initial COVID19 Vaccinat: 2020 Second COVID19 Vaccination Rai: 2020 Tetanus Booster (TDap): Unknown Seasonal Allergies Seasonal Allergies: No Current Status Advance Directives: No Communicates: Verbally Primary Language: Congolese Preferred Spoken Language: Congolese Is interpretation needed?: No Sensory deficits: Vision impairment Additional sensory deficits: BLIND R EYE Implanted or Applied Medical D: None Past Medical History Surgeries: Amputation, Orthopedic Neuropathy Amputee Diabetes, Insulin dep Blood Disorders: No Family Medical History Reviewed Nursing Family Hx Diabetes mellitus 19 FATHER 19 MOTHER G8 BROTHER FHx: supraventricular tachycardia 19 MOTHER Cancer, Diabetes Review of Systems Constitutional: No chills, No fever, No weakness EENTM: no symptoms reported Respiratory: No cough, No short of breath Cardiovascular: No chest pain, No palpitations Gastrointestinal: nausea, vomiting Genitourinary: no symptoms reported Musculoskeletal: no symptoms reported Skin: no symptoms reported Psychiatric/Neurological: See HPI Physical Exam Physical Exam Vital Signs Vital Signs - First Documented 04/27/21 09:20 Temp 35.8 Pulse 110 Resp 22 B/P (MAP) 185/102 (129) Pulse Ox 100 O2 Delivery Room Air Capillary Refill : Less Than 3 Seconds Height, Weight, BMI Height: 6'1.00" Weight: 221lbs. 6.4oz. 100.346902eh; 29.00 BMI Method:Stated General Appearance: No Apparent Distress, WD/WN HEENT: Moist Mucous Membranes; No Scleral Icterus (L), No Scleral Icterus (R) Neck: Normal Inspection; No JVD Respiratory: Lungs Clear, No Accessory Muscle Use, No Respiratory Distress Cardiovascular: Regular Rate, Rhythm, No Edema, No Murmur Gastrointestinal: Normal Bowel Sounds, Non Tender, Soft; No Distended, No Guarding, No Rebound Extremity: Other (Mild edema and erythema of the left foot associated with chronic wounds on the medial aspect) Neurologic/Psychiatric: Alert, Oriented x3, No Motor/Sensory Deficits; No Aphasia, No Facial Droop, No Motor Weakness Skin: Normal Color, Warm/Dry Results Results/Procedures Labs Laboratory Tests 04/27/21 09:25 04/28/21 04:34 Patient resulted labs reviewed. Imaging: Reviewed Imaging Report Imaging [facility], [place] NAME: CHETNA BRENNER [facility] REC#: [id number] PT STATUS: REG ER : 1975 PHYSICIAN: RENATA METZGER MD ADMIT DATE: 04/27/21/ER Signed Date of Exam:04/27/21 CHEST 1 VIEW, AP/PA ONLY INDICATION: Tachycardia Portable chest 11:49 AM Heart size and pulmonary vascularity are normal. Lungs are clear. There are no effusions or pneumothoraces. IMPRESSION: No acute abnormalities in the chest. Dictated by: Dictated on workstation # [id number] Dict: 04/27/21 1203 Trans: 04/27/21 1224 CV [id number] Interpreted by: NOAH SAMANO MD Electronically signed by: NOAH SAMANO MD 04/27/214 [facility], [place] NAME: CHETNA BRENNER [facility] REC#: [id number] PT STATUS: REG ER : 1975 PHYSICIAN: RENATA METZGER MD ADMIT DATE: 04/27/21/ER Signed Date of Exam:04/27/21 FOOT, LEFT, 2 VIEW INDICATION: Left foot pain. FINDINGS: Two views of the left foot show no fracture, dislocation, or other acute abnormalities. IMPRESSION: Negative left foot. Dictated by: Dictated on workstation # [id number] Dict: 04/27/21 1204 Trans: 04/27/21 1224 [id number] Interpreted by: NOAH SAMANO MD Electronically signed by: NOAH SAMANO MD 04/27/214 [facility] [place] NAME: CHETNA BRENNER [facility] REC#: [id number] PT STATUS: REG ER : 1975 PHYSICIAN: RENATA METZGER MD ADMIT DATE: 04/27/21/ER Signed Date of Exam:04/27/21 CT HEAD WO-R/O STROKE CLINICAL INDICATION: Patient with high blood sugar and confused. EXAM: Axial CT scan of the brain performed without IV contrast. High-resolution axial CT brain images with sagittal and coronal reformations were also created. Auto Exposure Controls were utilized during the CT exam to meet ALARA standards for radiation dose reduction. COMPARISON: None. FINDINGS: There is no evidence of acute cerebral infarct, intracranial hemorrhage, or gross mass effect. There is no dense vessel sign. There is a 6 mm x 4 mm circumscribed low-density area involving the posterior external capsular region which may represent a prominent perivascular space versus area of chronic infarct. Otherwise, the remainder of the brain parenchyma is unremarkable for age. The brain parenchymal volume appears appropriate for patient's age. There is normal warren-white matter distinction. There is no significant midline shift or herniation. There is no evidence of hydrocephalus. The basal cisterns are unremarkable. The skull, extracranial soft tissue, and orbits are unremarkable. There is mild mucosal thickening involving both maxillary sinuses. Temporal bones show no significant abnormality. IMPRESSION: 1: There is no evidence of acute intracranial process. There is no dense vessel sign seen. 2: Small prominent perivascular space versus chronic infarct in the posterior right external capsular region; otherwise, unremarkable CT scan of the brain for age. 3: Mild paranasal sinus disease. 4: The results of this report were discussed with Vladimir Rueda APRN, via the telephone on 04/27/2021 at 1200 hours. Dictated by: Dictated on workstation # [id number] Dict: 04/27/21 1149 Trans: 04/27/21 171 [id number] Interpreted by: SOPHIE RICHARD MD Electronically signed by: SOPHIE RICHARD MD 04/27/216 [facility] [place] NAME: CHETNA BRENNER Chad [facility] REC#: [id number] PT STATUS: REG ER : 1975 PHYSICIAN: RENATA METZGER MD ADMIT DATE: 04/27/21/ER Signed Date of Exam:04/27/21 MRI BRAIN W/O CONTRAST CLINICAL INDICATION: Possible stroke, stroke-like symptoms. Patient with high blood pressure and confused. EXAMS: 1: MRI of the brain performed without IV contrast. Sequences include axial DWI, ADC map, axial T2, axial T1, axial FLAIR, axial gradient echo, and sagittal T1. 2: MRA of the [place] without contrast using 3-D [id number]. Rotating 3-D MIP images were created. COMPARISON: Head CT without contrast dated 04/27/2021. FINDINGS: MRI OF THE BRAIN: There is no evidence of acute cerebral infarct, intracranial hemorrhage, brain herniation, or midline shift. There are multiple focal and mildly confluent areas of high T2 signal white matter changes involving both cerebral hemispheres and periventricular regions. Mildly prominent perivascular spaces in the bilateral basal ganglia regions are noted. The area previously described on the prior head CT in the right external capsule region likely represents prominent perivascular space. There is no hydrocephalus. Basal cisterns are unremarkable. The [place] vascular structures show no gross abnormality as visualized. The pituitary gland, sella, and suprasellar regions are unremarkable as visualized. The extracranial soft tissue, skull, and orbits are unremarkable. There is mild mucosal thickening involving the left maxillary sinus. Mastoid air cells are clear. MRA OF [place]: Of note, the proximal intracranial vertebral arteries are not completely imaged on this exam. The visualized intradural bilateral vertebral arteries, basilar artery, bilateral superior cerebellar arteries, and bilateral RN CCU are patent. The petrous, cavernous, and supraclinoid ICA are patent. The bilateral ACAs and bilateral MCAs and distal branches are patent. IMPRESSION: MRI Brain: 1: There is no evidence of acute intracranial process. There is no intracranial hemorrhage, brain herniation, or hydrocephalus. 2: There are multiple focal and mildly confluent areas involving white matter of both cerebral hemispheres and periventricular regions, which appear advanced for patient's age. These may be related to early chronic small vessel ischemic changes. Although this does not have the typical appearance of a demyelinating process, this also should be excluded. 3: There is mild left maxillary sinus disease. MRA [place]: Unremarkable MRA of the [place] with no large vessel occlusion, significant stenosis, vascular malformation, or aneurysm, as visualized. Dictated by: Dictated on workstation # [id number] Dict: 04/27/21 1629 Trans: 04/27/211705 [id number] Interpreted by: SOPHIE RICHARD MD Electronically signed by: SOPHIE RICHARD MD 04/27/211705 [facility] [place] NAME: JORDINCHETNA D [facility] REC#: [id number] PT STATUS: REG ER : 1975 PHYSICIAN: RENATA METZGER MD ADMIT DATE: 04/27/21/ER Signed Date of Exam:04/27/21 US CAROTID MARCIA COMPLETE [id number] PROCEDURE: US carotid duplex, bilateral. TECHNIQUE: Multiple real-time grayscale images were obtained over the carotid arteries in various projections, bilaterally. Additional spectral analysis and color Doppler duplex images were also obtained. INDICATION: Stroke. FINDINGS: There are no focally elevated velocities in either internal carotid artery. The ICA/CCA ratios are within normal limits, bilaterally. There is antegrade flow in the vertebral arteries, bilaterally. Grayscale images demonstrate minimal carotid plaque, bilaterally. IMPRESSION: Minimal bilateral carotid plaque however spectral analysis shows no evidence of a hemodynamically significant stenosis in either internal carotid artery. Parameters based on the consensus panel Warren-Scale and Doppler ultrasound criteria published December 2002, Radiology, Volume 229. DOPPLER (peak systolic velocity M/S Right Left CCA .86 .80 ICA Proximal .32 .76 ICA Mid .45 .59 ICA Distal .50 .79 RATIO .58 .99 ECA 1.2 .91 VERT .30 .44 Dictated by: Dictated on workstation # [id number] Dict: 04/27/21 1611 Trans: 04/27/21 1612 [id number] Interpreted by: FAIZAN HERNANDEZ MD Electronically signed by: FAIZAN HERNANDEZ MD 04/27/21 1612 Short Stay Diagnosis Discharge Diagnosis-Short Stay Admission Diagnosis Encephalopathy Final Discharge Diagnosis Encephalopathy Conclusion Plan encephalopathy due to marijuana intoxication Completely resolved now CT head negative for acute findings MRI negative for acute findings but chronic small vessel disease noted as above Discussed findings and hospitalization with Dr Young who will see in follow up Chronic osteomyelitis Continue on abx, has appt with podiatry tomorrow to follow up on cultures from last week DC home this afternoon if tolerates diet FRANCO WOOD MD Apr 28, 2021 08:35
[2021-04-28] MEDS ORDERED: PANTOPRAZOLE 40 MG (PROTONIX) VIAL IV SCH (09:00)
[2021-04-28] MEDS ORDERED: KCL 20 MEQ TAB (K-DUR) PO ONE (09:00)
--- NOTE | 2021-04-28 09:54 | Discharge Inst-Simple/Standard ---
Discharge Inst-Standard Patient Instructions/Follow Up Plan of Care/Instructions/FU: Please continue take your medications as written. Please follow-up with Dr. Young to follow up this hospital stay. Activity as Tolerated: Yes Discharge Diet: ADA Diet Return to The Hospital For: Chest pain, shortness of breath, weakness, confusion, difficulty speaking, lethargy, if you feel you are getting worse. FRANCO SALAS MD Apr 28, 2021 09:54
[2021-04-28] MEDS ORDERED: NPH,100I5 SC (10:09)
[2021-04-28] MEDS ORDERED: DOXE25CA46 PO (10:09)
[2021-04-28] MEDS ORDERED: NAPR220T66 PO (10:09)
[2021-04-28] MEDS ORDERED: METF-399 PO (10:09)
[2021-04-28] MEDS ORDERED: BUSP5TAB59 PO (10:09)
[2021-04-28] MEDS ORDERED: INSU100I23 SC (10:09)
--- NOTE | 2021-04-28 10:23 | Tele-ICU Progress Note ---
Subjective Date Seen by a Provider: Apr 28, 2021 Time Seen by a Provider: 10:23 Sepsis Event Evaluation Height, Weight, BMI Height: 6'1.00" Weight: 221lbs. 6.4oz. 100.943671xt; 29.00 BMI Method:Stated Focused Exam Lactate Level 04/27/21 09:25: Lactic Acid Level 2.55*H 04/27/21 11:25: Lactic Acid Level 1.78 Exam Exam Patient acknowledged, consented, and participated in this virtual visit which was conducted using real time audio/video Vital Signs Date Time Temp Pulse Resp B/P (MAP) Pulse Ox O2 Delivery O2 Flow Rate FiO2 04/28/21 09:15 96 10 95 04/28/21 09:00 103 11 150/88 98 Room Air 04/28/21 08:45 99 23 98 Room Air 04/28/21 08:35 97 Room Air 04/28/21 08:30 95 25 96 Room Air 04/28/21 08:09 37.0 04/28/21 08:00 153/93 04/28/21 07:45 99 28 97 Room Air 04/28/21 07:30 108 27 97 Room Air 04/28/21 07:15 95 23 96 Room Air 04/28/21 07:00 99 04/28/21 07:00 99 22 135/90 96 Room Air 04/28/21 06:00 96 26 118/74 96 Room Air 04/28/21 05:00 93 15 150/89 96 Room Air 04/28/21 04:00 94 21 143/85 95 Room Air 04/28/21 04:00 96 Room Air 04/28/21 03:41 36.6 04/28/21 03:00 93 21 144/86 97 Room Air 04/28/21 02:00 97 19 127/75 95 Room Air 04/28/21 01:00 96 04/28/21 01:00 96 20 134/79 96 Room Air 04/28/21 00:00 98 23 131/75 95 Room Air 04/27/21 23:59 96 Room Air 04/27/21 23:30 98 14 136/80 98 Room Air 04/27/21 22:00 105 19 143/85 95 Room Air 04/27/21 21:00 101 152/89 97 Room Air 04/27/21 20:00 101 15 163/92 97 Room Air 04/27/21 20:00 36.8 04/27/21 20:00 97 Room Air 04/27/21 19:45 103 15 156/94 95 Room Air 04/27/21 19:30 105 17 155/90 96 Room Air 04/27/21 19:15 105 16 154/89 96 Room Air 04/27/21 19:00 105 04/27/21 19:00 105 14 161/94 96 Room Air 04/27/21 18:17 107 16 155/83 96 I & O 04/28/21 07:00 Intake Total 2270 ml Output Total 1325 ml Balance 945 ml Height & Weight Height: 6'1.00" Weight: 221lbs. 6.4oz. 100.362921pm; 29.00 BMI Method:Stated General Appearance: No Apparent Distress, WD/WN HEENT: Moist Mucous Membranes; No Scleral Icterus (L), No Scleral Icterus (R) Neck: Normal Inspection; No JVD Respiratory: Lungs Clear, No Accessory Muscle Use, No Respiratory Distress Cardiovascular: Regular Rate, Rhythm, No Edema, No Murmur Capillary Refill: Less Than 3 Seconds Peripheral Pulses: 1+ Dorsalis Pedis (R), 1+ Left Dors-Pedis (L) Extremity: Other (Mild edema and erythema of the left foot associated with chronic wounds on the medial aspect) Neurologic/Psychiatric: Alert, Oriented x3, No Motor/Sensory Deficits; No Aphasia, No Facial Droop, No Motor Weakness Skin: Normal Color, Warm/Dry Results Lab Laboratory Tests 04/27/21 09:25 04/28/21 04:34 Assessment/Plan Assessment/Plan (Tele-ICU Physician , Progress Note ) Available chart/ vitals / labs / Images reviewed Video assessment done using teleICU camera, rest of exam as per RN Discussed with RN , EXAM PER RN Events overnight : AAO Afebrile FiO2 - ra I/O = Drips: Pressors: , hemodynamically stable Consultants: Hospital course: 04/27 - ER -> ICU with AMS change left foot infection , AURY , hyperglycemia A/P Hyperglycemia -resolved on Tx AURY ? / CKD - dehydration, HTN - cont IVF - follow closely Leukocytosis , LEFT FOOT INFECTION -chest x-ray was normal , UA unremarkable , NEG covid and flu , PCT negative - ? osteo of left foot - as per bedisde MD exam /eval - empiric ABX Zosyn and VAnco started - Continue on abx, has appt with podiatry HTN: PRN meds - Pseudo Hyponatremia - resolved Encephalopathy -TME and HTN ? - CTH - no acute findings - MRI head - early chronic small vessel ischemic changes, no large vessel occlusion, significant stenosis - LP was done in the ER. - today presemrd due to marijuana intoxication - Completely resolved now Anemia -chronic , follow Lines : (Central Line Necessity Reviewed) Lentz: void OG: Nutrition: Analgesia: Anxiety/ delirium : Haldol PRN. VTE Prophylaxis: Ella. Stress Ulcer Prophylaxis: PPI. Plans in collaboration with bedside consultants and IM MDs. Discussed with RN to reach out if any questions or concerns A total of 25 minutes of critical care time was devoted to this patient today, required to treat and/or prevent further deterioration of critical care condition ( as above ) . TIERNEY SCHWARTZ MD Apr 28, 2021 10:23
[2021-04-28] MEDS ORDERED: AMOX1TAB12 PO (11:57)
[2021-04-28] MEDS ORDERED: VANCOMYCIN 1500 MG/NS 500 ML IVPB IV SCH ×2 (15:00)
[2021-04-28] MEDS ORDERED: ENOXAPARIN 40 MG/0.4 ML (LOVENOX) SYR SC SCH (21:00)
[2021-04-29] MEDS ORDERED: TROUGH ORDER-PHARMACY XX NR (14:00)
== END 2021-04-28 13:57 | disposition home or self-care (01) ==
LOC: EDUNIT# 09:22 → ER 09:23 → INTOOBSV 17:23 → ICU 17:23
PROVIDERS: ADMIT Family Medicine; ATTEND Family Medicine
DX: G93.40 Encephalopathy, unspecified (principal); F12.921 Cannabis use, unspecified with intoxication delirium; E11.65 Type 2 diabetes mellitus with hyperglycemia; N17.9 Acute kidney failure, unspecified; E87.1 Hypo-osmolality and hyponatremia; E11.621 Type 2 diabetes mellitus with foot ulcer; E11.40 Type 2 diabetes mellitus with diabetic neuropathy, unspecified; L97.529 Non-pressure chronic ulcer of other part of left foot with unspecified severity; Z20.822 Contact with and (suspected) exposure to COVID-19; M86.672 Other chronic osteomyelitis, left ankle and foot; E86.0 Dehydration; D64.9 Anemia, unspecified; I10 Essential (primary) hypertension; F41.9 Anxiety disorder, unspecified; R29.704 NIHSS score 4; Z79.4 Long term (current) use of insulin; Z79.84 Long term (current) use of oral hypoglycemic drugs; Z88.2 Allergy status to sulfonamides; Z83.3 Family history of diabetes mellitus; Z82.49 Family history of ischemic heart disease and other diseases of the circulatory system
CPT/HCPCS: 62272; 70450; 70544; 70551; 71045; 73620; 80053 ×2; 80306; 81000; 82945; 82947 ×2; 83605; 83735; 84100; 84145; 84157; 85025 ×2; 85610; 85730; 86141; 87040; 87070; 87088; 87205; 87636; 89051; 93005; 93041; 93880; 99285; G0480; 36415; 80320; G0378

== ENCOUNTER → 2021-05-27 | Outpatient (CLI) | payer OTHER ==
[~2021-05-27] MED LIST changes: +DOXE25CA46 PO; +INSU100I23 SC; +METF-399 PO; +NAPR220T66 PO; +NPH,100I5 SC
[2021-05-27 18:01] LABS: TRIGLYCERIDES 301 MG/DL (<150); VLDL CHOLESTEROL 60 MG/DL (5-40)
[2021-05-27 18:05] LABS: CHOLESTEROL 316 MG/DL (< 200)
[2021-05-27 18:06] LABS: HDL CHOLESTEROL 47 MG/DL (40-60)
== END ==
LOC: LAB 17:21
PROVIDERS: ATTEND Family Medicine
DX: E11.9 Type 2 diabetes mellitus without complications (principal); E78.5 Hyperlipidemia, unspecified
CPT/HCPCS: 36415; 80061; 83036

== ENCOUNTER → 2021-05-28 | Outpatient (CLI) | payer OTHER | LOC: CARD 11:30 | PROVIDERS: ATTEND Internal Medicine Cardiovascular Disease | DX: I08.0 Rheumatic disorders of both mitral and aortic valves (principal) ==

== ENCOUNTER → 2021-06-11 | Outpatient (CLI) | payer OTHER ==
[2021-06-11 10:45] VITALS: BP 156/103
--- NOTE | 2021-06-12 13:01 | Cardiology Stress Test Report ---
Stress Test Report Date of Procedure/Referring: Date of Procedure: Jun 11, 2021 PCP Robbin Osorio Jr, MD Admitting Physician Telly Young MD Indications: Abnormal electrocardiogram Baseline Heart Rate: 105 Baseline Blood Pressure: Blood Pressure Systolic: 156 Blood Pressure Diastolic: 103 Baseline EKG: Baseline EKG: Sinus tachycardia with diffusely low voltages and early repolarization. Summary/Conclusion: PROCEDURE: The patient was exercised for a total of 6 minutes and 5 seconds of the standard Justice protocol achieving a maximum MET level of 7.3. The resting heart rate was 105 bpm and the peak heart rate was 151 bpm which represents 85% of the maximum predicted heart rate. The resting blood pressure was 156/103 mmHg and the peak blood pressure was 165/54 mmHg although he did drop his blood pressure to 117/54 mmHg after 2 minutes of exercise and stage I. The test was stopped due to fatigue. There was no exercise-induced chest discomfort. There were occasional, isolated premature ventricular complexes as well as one ventricular triplet during the test. There were no exercise-induced electrocardiogram changes. The patient exhibited fair exercise capacity for age. IMPRESSION: 1. Tachycardic heart rate and a somewhat hypotensive blood pressure response to exercise with resting tachycardia. 2. There was no chest discomfort or electrocardiogram changes during the test. 3. There were isolated premature ventricular complexes as well as one ventricular triplet during the test. 4. The patient exhibited fair exercise capacity for age at 6 minutes and 5 seconds of the Justice protocol. 5. This is a borderline abnormal result. Although there were no electrocardiogram changes, the patient had a somewhat hypotensive blood pressure response to exercise and he had a ventricular triplet. Clinical correlation is suggested. Certain portions of this document may have been dictated utilizing voice recogn ition technology. Inherent to this technology, typographical and grammatical errors may exist. As much as I am diligent to identify and correct these mistakes, some errors may remain in the document. ROBBIN OSORIO JR, MD Jun 12, 2021 13:01
== END ==
LOC: CARD 10:00
PROVIDERS: ATTEND Internal Medicine Cardiovascular Disease
DX: R94.31 Abnormal electrocardiogram [ECG] [EKG] (principal)
CPT/HCPCS: 93017

== ENCOUNTER → 2022-01-28 | Outpatient (CLI) | payer OTHER ==
[~2022-01-28] MED LIST changes: -LEVO750P IV; +[UNRECOGNIZED DRUG - CODE] IV
[2022-01-28 16:52] LABS: HEMATOCRIT 29 % (40-54); HEMOGLOBIN 9.8 g/dL (13.3-17.7); MEAN CORPUSCULAR HEMOGLOBIN 30 pg (25-34); MEAN CORPUSCULAR HGB CONC 34 g/dL (32-36); MEAN CORPUSCULAR VOLUME 88 fL (80-99); MEAN PLATELET VOLUME 8.6 fL (9.0-12.2); PLATELET COUNT 477 10^3/uL (130-400); WHITE BLOOD COUNT 9.1 10^3/uL (4.3-11.0)
[2022-01-28 17:14] LABS: PROTHROMBIN TIME PATIENT 13.4 SEC (12.2-14.7)
== END ==
LOC: LAB 16:32
PROVIDERS: ATTEND Ophthalmology
DX: G93.2 Benign intracranial hypertension (principal); H47.10 Unspecified papilledema
CPT/HCPCS: 36415; 82947; 85027; 85610; 85730

== ENCOUNTER → 2022-02-05 | Day surgery (SDC) | payer OTHER ==
--- NOTE | 2022-02-05 15:00 | Anesthesia-Procedure Note ---
Procedures/Interventions Procedure Start/Stop/Diagnosis Date of Procedure: Feb 05, 2022 Start Time: 14:40 Stop Time: 14:50 Lumbar Puncture Discussed Risk,Benefits: Yes Patient Consents: Yes Position: Lying, Left Sterile Technique: Yes Opening Pressure: 36 Fluid Color: clear Spinal Needle Used: 20g Zuri 3 1/2iCHARLA Montelongo CRNA Feb 05, 2022 15:00
[2022-02-05 15:34] LABS: CSF GLUCOSE 74 MG/DL (50-80)
[2022-02-05 15:40] LABS: CSF TOTAL PROTEIN 41 MG/DL (15-40)
[2022-02-05 15:51] LABS: INR 0.9 (0.8-1.4); PROTHROMBIN TIME PATIENT 12.5 SEC (12.2-14.7)
[2022-02-05 15:57] LABS: WHITE BLOOD CELL,CSF 0.001 10^3/uL (0-0.005)
[2022-02-05 15:59] LABS: APPEARANCE,CSF CLEAR; COLOR,CSF COLORLESS; CSF TUBE NUMBER 4
[2022-02-05 16:00] VITALS: BP 154/94
[2022-02-05 16:04] LABS: HEMATOCRIT 28 % (40-54); HEMOGLOBIN 9.1 g/dL (13.3-17.7); MEAN CORPUSCULAR HEMOGLOBIN 29 pg (25-34); MEAN CORPUSCULAR HGB CONC 33 g/dL (32-36); MEAN CORPUSCULAR VOLUME 90 fL (80-99); MEAN PLATELET VOLUME 9.8 fL (9.0-12.2); PLATELET COUNT 341 10^3/uL (130-400); WHITE BLOOD COUNT 8.4 10^3/uL (4.3-11.0)
== END | disposition home or self-care (01) ==
LOC: SDC 13:05
PROVIDERS: ATTEND Anesthesiology
DX: H47.10 Unspecified papilledema (principal); G93.2 Benign intracranial hypertension
CPT/HCPCS: 36415; 82945; 82947; 84157; 85027; 85610; 85730; 89051